=== PATIENT | male | born 1965 | race African-American/Black ===

== ENCOUNTER 2019-01-06 05:45 | Inpatient (IN) | payer OTHER ==
[2019-01-06] MEDS ORDERED: ASPIRIN PO ONE (06:15)
[2019-01-06] MEDS ORDERED: NACL 0.9% 1000 ML IV ONE (06:32)
[2019-01-06] MEDS ORDERED: TYLENOL PO ONE (06:33)
[2019-01-06] MEDS ORDERED: LEVAQUIN 750MG/150ML 750 MG/150 ML BAG IV ONE (06:39)
--- NOTE | 2019-01-06 06:49 | XRay Report ---
PROCEDURE: XR CHEST 1V AP TECHNIQUE: Chest radiograph single view. HISTORY: Chest Pain COMPARISONS: None available. FINDINGS: No mediastinal shift. Cardiac silhouette is not enlarged. No pneumothorax or effusion. Patchy left gr eater than right basilar opacity with left basilar air bronchograms. IMPRESSION: Left and possibly right basilar infiltrate. This document is electronically signed by Forrest Velásquez MD., January 06 2019 06:46:26 AM ET
[2019-01-06 07:37] LABS: Alanine Aminotransferase 14 units/L (7-56); Albumin 2.4 g/dL (3.9-5); BUN/Creatinine Ratio 21; Basophils % (Auto) 0.3 % (0.0-1.8); Bilirubin,Direct < 0.2 mg/dL (0-0.2); Blood Urea Nitrogen 15 mg/dL (9-20); Calcium 8.1 mg/dL (8.4-10.2); Eosinophils # (Auto) 0.3 K/mm3 (0.0-0.4); Eosinophils % (Auto) 2.3 % (0.0-4.3); Hematocrit 30.8 % (35.5-45.6); Hemoglobin 10.5 gm/dl (11.8-15.2); Hemolysis Index 36; Lymphocytes # (Auto) 0.3 K/mm3 (1.2-5.4); Lymphocytes % (Auto) 2.7 % (13.4-35.0); Mean Corpuscular HGB Conc 34 % (32-34); Mean Corpuscular Volume 88 fl (84-94); Monocytes # (Auto) 0.9 K/mm3 (0.0-0.8); Platelet Count 243 K/mm3 (140-440); Red Cell Distribution Width 13.3 % (13.2-15.2)
[2019-01-06] MEDS ORDERED: SOLU-Medrol IV ONE (07:39)
--- NOTE | 2019-01-06 07:39 | Emergency Department Report ---
ED Shortness of Breath HPI - General Chief Complaint: Dyspnea/Respdistress Stated Complaint: SHORTNESS OF BREATH Time Seen by Provider: 01/06/19 06:21 Source: patient, family, old records reviewed Mode of arrival: Ambulatory Limitations: Language Barrier - History of Present Illness Initial Comments: 53-year-old male with a past medical history of HIV, anemia of chronic disease, and hyponatremia presents to the hospital with complaints of cough 2 weeks. Intermittent fever reported. Patient was seen at a clinic a primary care clinic in [place] on the he was prescribed Cefdinir, Singulair, Ventolin, omeprazole, and Tessalon pearls as well as other medications. Despite taking his medications there is no improvement. Present nauseated, generalized weakness, and decreased by mouth intake reported. The patient complains of anterior chest pain worse with coughing. - Related Data Previous Rx's Medication Instructions Recorded Last Taken Type Acetaminophen [Acetaminophen TAB] 650 mg PO Q4H PRN #30 tablet 09/30/15 Unknown Rx Sulfamethoxazole/Trimethoprim 1 each PO DAILY #30 tablet 09/30/15 Unknown Rx [Bactrim DS TAB] Warfarin [Coumadin] 5 mg PO QHS #30 tablet 10/01/15 Unknown Rx Allergies Allergy/AdvReac Type Severity Reaction Status Date / Time No Known Allergies Allergy Verified 09/24/15 12:37 ED Review of Systems ROS: Stated complaint: SHORTNESS OF BREATH Other details as noted in HPI Comment: All other systems reviewed and negative ED Past Medical Hx - Past Medical History Previous Medical History?: Yes Hx Hypertension: Yes Hx Congestive Heart Failure: No Hx Diabetes: No Hx Renal Disease: Yes Hx Asthma: No Hx COPD: No Hx HIV: No - Social History Smoking Status: Former Smoker Substance Use Type: Prescribed - Medications Home Medications: Home Medications Medication Instructions Recorded Confirmed Last Taken Type Acetaminophen [Acetaminophen TAB] 650 mg PO Q4H PRN #30 tablet 09/30/15 Unknown Rx Sulfamethoxazole/Trimethoprim 1 each PO DAILY #30 tablet 09/30/15 Unknown Rx [Bactrim DS TAB] Warfarin [Coumadin] 5 mg PO QHS #30 tablet 10/01/15 Unknown Rx ED Physical Exam - General Limitations: No Limitations - Other Other exam information: General: No limitations, patient is alert in no acute distress Head exam: Atraumatic, normocephalic Eyes exam: Normal appearance ENT: Moist mucous membrane Neck exam: Normal inspection, full range of motion, no meningismus nontender Respiratory exam: Mild tachypnea, left sided crackles without wheezing Cardiovascular: Tachycardic, regular rhythm Abdomen: Soft, nondistended, and nontender, with normal bowel sounds, no rebound, or guarding Extremity: Full range of motion normal inspection no deformity, no edema Back: Normal Inspection, full range of motion, no tenderness Neurologic: Alert, oriented x3, cranial nerves intact, no motor or sensory deficit Psychiatric: normal affect, normal mood Skin: Warm, dry, intact ED Course Vital Signs 01/06/19 01/06/19 01/06/19 06:05 06:42 06:58 Temperature 99.4 F Pulse Rate 112 H 113 H Respiratory 34 H 40 H Rate Blood Pressure 167/103 153/100 [Right] O2 Sat by Pulse 96 95 91 Oximetry 01/06/19 07:00 Temperature Pulse Rate Respiratory Rate Blood Pressure [Right] O2 Sat by Pulse 98 Oximetry - ABG Interpretation Ph: 7.47 PCO2: 28 PO2: 58 Bicarbonate: 21 Interpretation: respiratory alkalosis, other (hypoxia) ED Medical Decision Making - Lab Data Result diagrams: 01/06/19 06:56 01/06/19 06:56 Lab Results 01/06/19 01/06/19 01/06/19 Range/Units 06:56 06:56 06:56 WBC 11.2 H (4.5-11.0) K/mm3 RBC 3.50 L (3.65-5.03) M/mm3 Hgb 10.5 L (11.8-15.2) gm/dl Hct 30.8 L (35.5-45.6) % MCV 88 (84-94) fl MCH 30 (28-32) pg MCHC 34 (32-34) % RDW 13.3 (13.2-15.2) % Plt Count 243 (140-440) K/mm3 Lymph % (Auto) 2.7 L (13.4-35.0) % [place] % (Auto) 8.0 H (0.0-7.3) % Eos % (Auto) 2.3 (0.0-4.3) % Baso % (Auto) 0.3 (0.0-1.8) % Lymph # 0.3 L (1.2-5.4) K/mm3 [place] # 0.9 H (0.0-0.8) K/mm3 Eos # 0.3 (0.0-0.4) K/mm3 Baso # 0.0 (0.0-0.1) K/mm3 Seg Neutrophils % 86.7 H (40.0-70.0) % Seg Neutrophils # 9.7 H (1.8-7.7) K/mm3 PT 13.9 (12.2-14.9) Sec. INR 1.10 (0.87-1.13) APTT 34.9 (24.2-36.6) Sec. POC ABG pH (7.35-7.45) POC ABG pO2 (80-105) POC ABG HCO3 (22-26 mml/L) POC ABG Total CO2 (23-27mmol/L) POC ABG O2 Sat POC ABG Base Excess ((-2) - (+3)mmol/L) VBG pH (7.320-7.420) FiO2 % Sodium 130 L (137-145) mmol/L Potassium 3.7 (3.6-5.0) mmol/L Chloride 98.3 (98-107) mmol/L Carbon Dioxide 18 L (22-30) mmol/L Anion Gap 17 mmol/L BUN 15 (9-20) mg/dL Creatinine 0.7 L (0.8-1.5) mg/dL Estimated GFR > 60 ml/min BUN/Creatinine Ratio 21 % Glucose 119 H (75-100) mg/dL Lactic Acid (0.7-2.0) mmol/L Calcium 8.1 L (8.4-10.2) mg/dL Total Bilirubin 0.40 (0.1-1.2) mg/dL Direct Bilirubin < 0.2 (0-0.2) mg/dL AST 27 (5-40) units/L ALT 14 (7-56) units/L Alkaline Phosphatase 65 (35-129) units/L Troponin T < 0.010 (0.00-0.029) ng/mL NT-Pro-B Natriuret Pep 121.0 (0-900) pg/mL Total Protein 7.2 (6.3-8.2) g/dL Albumin 2.4 L (3.9-5) g/dL Albumin/Globulin Ratio 0.5 % 01/06/19 01/06/19 01/06/19 Range/Units 06:56 06:56 06:59 WBC (4.5-11.0) K/mm3 RBC (3.65-5.03) M/mm3 Hgb (11.8-15.2) gm/dl Hct (35.5-45.6) % MCV (84-94) fl MCH (28-32) pg MCHC (32-34) % RDW (13.2-15.2) % Plt Count (140-440) K/mm3 Lymph % (Auto) (13.4-35.0) % Mason % (Auto) (0.0-7.3) % Eos % (Auto) (0.0-4.3) % Baso % (Auto) (0.0-1.8) % Lymph # (1.2-5.4) K/mm3 [place] # (0.0-0.8) K/mm3 Eos # (0.0-0.4) K/mm3 Baso # (0.0-0.1) K/mm3 Seg Neutrophils % (40.0-70.0) % Seg Neutrophils # (1.8-7.7) K/mm3 PT (12.2-14.9) Sec. INR (0.87-1.13) APTT (24.2-36.6) Sec. POC ABG pH 7.474 H (7.35-7.45) POC ABG pO2 58 L (80-105) POC ABG HCO3 21.2 (22-26 mml/L) POC ABG Total CO2 22 (23-27mmol/L) POC ABG O2 Sat 92 POC ABG Base Excess -2 ((-2) - (+3)mmol/L) VBG pH 7.459 H (7.320-7.420) FiO2 21 % Sodium (137-145) mmol/L Potassium (3.6-5.0) mmol/L Chloride (98-107) mmol/L Carbon Dioxide (22-30) mmol/L Anion Gap mmol/L BUN (9-20) mg/dL Creatinine (0.8-1.5) mg/dL Estimated GFR ml/min BUN/Creatinine Ratio % Glucose (75-100) mg/dL Lactic Acid 0.80 (0.7-2.0) mmol/L Calcium (8.4-10.2) mg/dL Total Bilirubin (0.1-1.2) mg/dL Direct Bilirubin (0-0.2) mg/dL AST (5-40) units/L ALT (7-56) units/L Alkaline Phosphatase (35-129) units/L Troponin T (0.00-0.029) ng/mL NT-Pro-B Natriuret Pep (0-900) pg/mL Total Protein (6.3-8.2) g/dL Albumin (3.9-5) g/dL Albumin/Globulin Ratio % - EKG Data -: EKG Interpreted by Ar EKG shows normal: sinus rhythm, axis (qrs -7), QRS complexes (qrsd 73), ST-T waves (no stemi) Rate: tachycardia (112) - EKG Data When compared to previous EKG there are: no significant change - Radiology Data Radiology results: report reviewed PROCEDURE: XR CHEST 1V AP TECHNIQUE: Chest radiograph single view. HISTORY: Chest Pain COMPARISONS: None available. FINDINGS: No mediastinal shift. Cardiac silhouette is not enlarged. No pneumothorax or effusion. Patchy left greater than right basilar opacity with left basilar air bronchograms. IMPRESSION: Left and possibly right basilar infiltrate. - Medical Decision Making b/l pneumonia + hiv with unknown cd4 + hypoxia tx with supplemental oxygen, 30 mL per KG of normal saline, IV Levaquin, and IV B Solu-Medrol, IV bactrim to cover for PCP since baseline CD4 is unknown at this time no signs of septic shock Hospitalist informed of admission - Differential Diagnosis pneumonia, CHF, AL, PCP, sepsis, renal failure, Critical Care Time: No Critical care attestation.: If time is entered above; I have spent that time in minutes in the direct care of this critically ill patient, excluding procedure time. ED Disposition Clinical Impression: Bilateral pneumonia, HIV (human immunodeficiency virus infection), Hypoxia, Hyponatremia, Failure of outpatient treatment Disposition: OP ADMIT IP TO THIS HOSP Is pt being admited?: Yes Condition: Stable Time of Disposition: 07:59 (dr reed/Hunter)
[2019-01-06] MEDS ORDERED: BACTRIM IV ONE ×2 (07:40→09:00)
[2019-01-06] MEDS ORDERED: TO ASSIGN FLUID IV ONE (07:40)
[2019-01-06 07:49] LABS: INR 1.1 (0.87-1.13)
[2019-01-06 07:50] LABS: Partial Thromboplastin Time 34.9 Sec. (24.2-36.6)
[2019-01-06 08:33] LABS: Bacteria,Urine 1+ /HPF (Negative); Bilirubin,Urine NEG (Negative); Blood,Urine SM (Negative); Color,Urine Straw (Yellow); Mucus,Urine FEW /HPF; Protein,Urine <15 mg/dL mg/dL (Negative); Urobilinogen,Urine < 2.0 mg/dL (<2.0); WBC,Urine < 1.0 /HPF (0.0-6.0)
[2019-01-06] MEDS ORDERED: D5W IV ONE (09:00)
--- NOTE | 2019-01-06 09:59 | History and Physical Report ---
History of Present Illness Date of examination: 01/06/19 Date of admission: 01/06/19 07:59 Chief complaint: Difficulty breathing History of present illness: 53-year-old male with a past medical history of HIV, anemia of chronic disease, and hyponatremia presents to the hospital with complaints of cough 2 weeks, Intermittent fever, SOB and chills. Patient was seen at a clinic a primary care clinic in [place] on the he was prescribed Cefdinir, Singulair, V entolin, omeprazole, and Tessalon pearls as well as other medications. Despite taking his medications there is no improvement. He now Presented with nausea, generalized weakness, and decreased by mouth intake along with subjective fever and chills. The patient complains of anterior pleuretic chest pain worse with coughing. CXR showed b/l PNA. he is not on any meds for HIV, CD4 count few years ago was 62. he is getting admitted for further evaluation and management. Review of Systems: General: +subjective fever, + malaise Cutaneous: no rash, pruritus Head: no headaches or injury Eyes: no changes in vision, eye pain, double vision Ears: no ear pain, ear discharge, ringing or hearing loss Nose: no nose bleeding, stuffiness Mouth & throat: no bleeding gums, no horseness, no dental problems, or swollen glands Neck: no pain, node enlargement/lumps, tyroid enlargement or tenderness Respiratory: +cough +SOB Cardiovascular: no chest pain, leg edema, cyanosis, KOWALSKI, orthopnea Musculoskeletal: no edema Gastrointestinal: +nausea, no vomiting, no hematemesis, diarrhea, constipation, melena, bright red blood in stools, fecal incontinence, jaundice Genitourinary/Reproductive: no frequent urination, dysuria, hematuria, incontinence Neurogical: no seizures, no headaches, no weakness, no paresthesias, no loss of speech or vision; no memory loss, no vertigo, no tremors, no numbness Psychiatric: stable mood; no excessive anxiety, sadness or moodiness Past History Past Medical History: HIV/AIDS Past Surgical History: No surgical history Social history: smoking. denies: alcohol abuse, IV drug use Family history: hypertension Medications and Allergies Allergies Allergy/AdvReac Type Severity Reaction Status Date / Time No Known Allergies Allergy Verified 09/24/15 12:37 Home Medications Medication Instructions Recorded Confirmed Last Taken Type Acetaminophen [Acetaminophen TAB] 650 mg PO Q4H PRN #30 tablet 09/30/15 01/07/19 Unknown Rx Sulfamethoxazole/Trimethoprim 1 each PO DAILY #30 tablet 09/30/15 01/07/19 Unknown Rx [Bactrim DS TAB] Warfarin [Coumadin] 5 mg PO QHS #30 tablet 10/01/15 01/07/19 Unknown Rx Active Meds: Active Medications Trimethoprim/Sulfamethoxazole (305 mg/ Dextrose) 519.0625 mls @ 346.042 mls/hr IV ONCE ONE Stop: 01/06/19 10:29 Exam - Physical Exam Narrative exam: GENERAL: well-developed and well-nourished Daren Castillo lying on bed appeared to be in no discomfort. HEENT: Normocephalic. Atraumatic. No conjunctival congestion or icterus. Patient has moist mucous membranes. NECK: Supple. Trachea midline. CHEST/LUNGS: Coarse breath sounds auscultated bilaterally, breathing nonlabored. No wheezes. HEART/CARDIOVASCULAR: Regular in rate and rhythm. S1 and S2 positive. ABDOMEN: Abdomen is soft, nontender. Patient has normal bowel sounds. SKIN: There is no rash. Warm and dry. NEURO: No focal motor deficit. Follows command. MUSCULOSKELETAL: No joint effusion or tenderness. EXTRIMITY: No edema, no cyanosis or clubbing. PSYCH: Cooperative. - Constitutional Vitals: Temp Pulse Resp BP Pulse Ox 99.4 F 91 H 19 128/90 99 01/06/19 06:05 01/06/19 09:00 01/06/19 09:00 01/06/19 09:00 01/06/19 09:00 Results - Labs CBC & Chem 7: 01/08/19 06:50 01/08/19 06:50 Labs: Abnormal lab results 01/06/19 01/06/19 01/06/19 Range/Units 06:56 06:56 06:56 WBC 11.2 H (4.5-11.0) K/mm3 RBC 3.50 L (3.65-5.03) M/mm3 Hgb 10.5 L (11.8-15.2) gm/dl Hct 30.8 L (35.5-45.6) % Lymph % (Auto) 2.7 L (13.4-35.0) % [facility] % (Auto) 8.0 H (0.0-7.3) % Lymph # 0.3 L (1.2-5.4) K/mm3 [facility] # 0.9 H (0.0-0.8) K/mm3 Seg Neutrophils % 86.7 H (40.0-70.0) % Seg Neutrophils # 9.7 H (1.8-7.7) K/mm3 POC ABG pH (7.35-7.45) POC ABG pO2 (80-105) VBG pH 7.459 H (7.320-7.420) Sodium 130 L (137-145) mmol/L Carbon Dioxide 18 L (22-30) mmol/L Creatinine 0.7 L (0.8-1.5) mg/dL Glucose 119 H (75-100) mg/dL Calcium 8.1 L (8.4-10.2) mg/dL Albumin 2.4 L (3.9-5) g/dL 01/06/19 Range/Units 06:59 WBC (4.5-11.0) K/mm3 RBC (3.65-5.03) M/mm3 Hgb (11.8-15.2) gm/dl Hct (35.5-45.6) % Lymph % (Auto) (13.4-35.0) % [facility] % (Auto) (0.0-7.3) % Lymph # (1.2-5.4) K/mm3 [facility] # (0.0-0.8) K/mm3 Seg Neutrophils % (40.0-70.0) % Seg Neutrophils # (1.8-7.7) K/mm3 POC ABG pH 7.474 H (7.35-7.45) POC ABG pO2 58 L (80-105) VBG pH (7.320-7.420) Sodium (137-145) mmol/L Carbon Dioxide (22-30) mmol/L Creatinine (0.8-1.5) mg/dL Glucose (75-100) mg/dL Calcium (8.4-10.2) mg/dL Albumin (3.9-5) g/dL Assessment and Plan Acute hypoxic respiratory failure due to pneumonia - - We'll admit the patient to telemetry - Will provide scheduled nebulizer breathing treatment and as needed - will get sputum culture, chest x-ray showed bilateral pneumonia - Provide supplemental oxygen to keep oxygen saturation above 92% b/L PNA with presumed sepsis - Obtained blood culture, sputum culture - Treat with Rocephin and Zithromax - Patient may need to be covered for PCP pneumonia as his CD4 count is unknown -ID consulted will follow recommendation h/o HIV, not on ARV - Ordered CD4 count, ID consult Chronic hyponatremia, continue IV fluid Noncompliance, counseled Oralcandidiasis, started fluconazole DVT prophylaxis, Lovenox CXR: CXR showed patchy left greater than right basilar opacity with left basilar air bronchograms.
[2019-01-06] MEDS ORDERED: TYLENOL PO PRN (10:07)
[2019-01-06] MEDS ORDERED: APRESOLINE IV PRN (10:07)
[2019-01-06] MEDS: ZITHROMAX 500 MG in NACL 0.9% 250ML 250 ML IV SCH (12:33)
--- NOTE | 2019-01-06 12:36 | Consultation ---
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 Patient only speaks Malian. At the time of encounter there were none translating phone lines available, therefore nursing staff assisted me using [email or web address]. Patient also reports weight loss 10L in 2 months. He said his family (son at bedside) known about his HIV status. I asked the son and he seemed no aware. I decided to interview the patient privately. He was seen by a PCP in [place] on 12/28/2018 and he was prescribed Cefdinir, Singulair, Ventolin, omeprazole, and Tessalon pearls as well as other medications. Despite taking his medications there is no improvement. Of note, he was admitted to [facility] back in 2015 due to HD IJ perm cath infection/DVT. He is not on HD currently. It seems he was found to be HIV positive during admission at [facility] in [place]. He was hospitalized there from 07/04/15 thru 08/05/15. He was admitted with sepsis and ARF, acute hepatic failure, requiring HD. As well he had multiple organ failure and acute pancreatitis. He was found to be Shiga toxin positive. His CD4 count = 62 there. In the ED, temp 99.4, HR 113, R41, BP 107/103, WBC 11.2. Hg 10.5. Plat 243. Creat 0.7. Blood cultures 01/06/2019 no growth today. CXR showed patchy left greater than right basilar opacity with left basilar air bronchograms. ID consulted for HIV and pneumonia. Review of Systems: General: +subjective fever, + malaise Cutaneous: no rash, pruritus Head: no headaches or injury Eyes: no changes in vision, eye pain, double vision Ears: no ear pain, ear discharge, ringing or hearing loss Nose: no nose bleeding, stuffiness Mouth & throat: no bleeding gums, no horseness, no dental problems, or swollen glands Neck: no pain, node enlargement/lumps, tyroid enlargement or tenderness Respiratory: +cough +SOB Cardiovascular: no chest pain, leg edema, cyanosis, KOWALSKI, orthopnea Musculoskeletal: no edema Gastrointestinal: +nausea, no vomiting, no hematemesis, diarrhea, constipation, melena, bright red blood in stools, fecal incontinence, jaundice Genitourinary/Reproductive: no frequent urination, dysuria, hematuria, incontinence Neurogical: no seizures, no headaches, no weakness, no paresthesias, no loss of speech or vision; no memory loss, no vertigo, no tremors, no numbness Psychiatric: stable mood; no excessive anxiety, sadness or moodiness Medications and Allergies Allergies Allergy/AdvReac Type Severity Reaction Status Date / Time No Known Allergies Allergy Verified 09/24/15 12:37 Home Medications Medication Instructions Recorded Confirmed Last Taken Type Acetaminophen [Acetaminophen TAB] 650 mg PO Q4H PRN #30 tablet 09/30/15 Unknown Rx Sulfamethoxazole/Trimethoprim 1 each PO DAILY #30 tablet 09/30/15 Unknown Rx [Bactrim DS TAB] Warfarin [Coumadin] 5 mg PO QHS #30 tablet 10/01/15 Unknown Rx Active Meds: Active Medications Acetaminophen (Tylenol) 650 mg PO Q4H PRN PRN Reason: Pain MILD(1-3)/Fever >100.5/BOOTHE Acetaminophen/Hydrocodone Bitart ([place] 5/325) 2 each PO Q6H PRN PRN Reason: Pain, Moderate (4-6) Albuterol/Ipratropium (Duoneb *Not For Prn Use*) 1 ampul IH Q6HRT [facility] Enoxaparin Sodium (Lovenox) 40 mg SUB-Q QDAY@2200 [facility] Famotidine (Pepcid) 10 mg PO BID [facility] Hydralazine HCl (Apresoline) 5 mg IV Q30MIN PRN PRN Reason: Hypertension Ceftriaxone Sodium (Rocephin/Ns 1 Gm/50 Ml) 1 gm in 50 mls @ 100 mls/hr IV Q12HR [facility]; Protocol Azithromycin 500 mg/ Sodium (Chloride) 250 mls @ 250 mls/hr IV Q24HR [facility]; Protocol Last Admin: 01/06/19 12:33 Dose: 250 mls/hr Documented by: Sodium Chloride (Nacl 0.9% 1000 Ml) 1,000 mls @ 100 mls/hr IV DIRECT [facility] Ondansetron HCl (Zofran) 4 mg IV Q8H PRN PRN Reason: N/V unrelieved by James Noe (Senokot) 8.6 mg PO Q12HR [facility] Trimethoprim/Sulfamethoxazole (Bactrim Ds) 2 each PO Q8HR [facility] Physical Examination - Physical Exam Narrative exam: General appearance: Alert in NAD Eyes: anicteric sclerae, moist conjunctivae; no lid-lag; PERRLA HENT: Atraumatic; oropharynx clear with moist mucous membranes and +mild oral thrush; normal hard and soft palate. Normal external ears. Neck: Trachea midline; supple, no thyromegaly or lymphadenopathy Lungs: bibasilar crackles CV: RRR no murmur Abdomen: Soft, diffuse tenderness Extremities: no edema, cyanosis Skin: Normal temperature, turgor and texture; no rash, ulcers or subcutaneous nodules Psych: Appropriate affect, alert and oriented to person, place and time. Neuro: alert and oriented x 3. Moving all extermities - Constitutional Vitals: Vital Signs Temp Pulse Resp BP Pulse Ox 99.4 F 91 H 19 128/90 99 01/06/19 06:05 01/06/19 09:00 01/06/19 09:00 01/06/19 09:00 01/06/19 09:00 Temperature -Last 24 Hours Temperature 99.4 F Results - Labs CBC & Chem 7: 01/06/19 06:56 01/06/19 06:56 Labs: Abnormal lab results 01/06/19 01/06/19 01/06/19 Range/Units 06:56 06:56 06:56 WBC 11.2 H (4.5-11.0) K/mm3 RBC 3.50 L (3.65-5.03) M/mm3 Hgb 10.5 L (11.8-15.2) gm/dl Hct 30.8 L (35.5-45.6) % Lymph % (Auto) 2.7 L (13.4-35.0) % [place] % (Auto) 8.0 H (0.0-7.3) % Lymph # 0.3 L (1.2-5.4) K/mm3 [place] # 0.9 H (0.0-0.8) K/mm3 Seg Neutrophils % 86.7 H (40.0-70.0) % Seg Neutrophils # 9.7 H (1.8-7.7) K/mm3 POC ABG pH (7.35-7.45) POC ABG pO2 (80-105) VBG pH 7.459 H (7.320-7.420) Sodium 130 L (137-145) mmol/L Carbon Dioxide 18 L (22-30) mmol/L Creatinine 0.7 L (0.8-1.5) mg/dL Glucose 119 H (75-100) mg/dL Calcium 8.1 L (8.4-10.2) mg/dL Albumin 2.4 L (3.9-5) g/dL 01/06/19 Range/Units 06:59 WBC (4.5-11.0) K/mm3 RBC (3.65-5.03) M/mm3 Hgb (11.8-15.2) gm/dl Hct (35.5-45.6) % Lymph % (Auto) (13.4-35.0) % [place] % (Auto) (0.0-7.3) % Lymph # (1.2-5.4) K/mm3 [place] # (0.0-0.8) K/mm3 Seg Neutrophils % (40.0-70.0) % Seg Neutrophils # (1.8-7.7) K/mm3 POC ABG pH 7.474 H (7.35-7.45) POC ABG pO2 58 L (80-105) VBG pH (7.320-7.420) Sodium (137-145) mmol/L Carbon Dioxide (22-30) mmol/L Creatinine (0.8-1.5) mg/dL Glucose (75-100) mg/dL Calcium (8.4-10.2) mg/dL Albumin (3.9-5) g/dL Assessment and Plan Cultures: Blood cultures 01/06/2019 no growth today. 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 Etiology most likely pneumonia. 2) Bilateral pneumonia: likely PJP +/- CAP. Patient with HIV not on ART, likely AIDS. CXR showed patchy left greater than right basilar opacity with left basilar air bronchograms. 3) Oral candidiasis Recommendations: - follow-up blood cultures - start bactrim DS 2 tab po TID to treat empirically PJP - add fluconazole PO - continue ceftriaxone and azithromycin for now - obtain CD4, VL, HIV genotype, cryptococcal serum antigen, HBV and HCV serology, RPR - needs education about consistent HIV management Will follow. Margi Shah MD Infectious Diseases Administrative Analyst [facility], [place] [facility] M [phone] O [phone]
[2019-01-06] MEDS: DUONEB *Not for PRN Use IH SCH ×3 (13:31→19:09)
[2019-01-06 14:28] LABS: Hepatitis B Surface Antigen Non-Reactive (Negative); Hepatitis C Virus Antibody Non-Reactive (NonReactive)
[2019-01-06] MEDS: BACTRIM DS PO SCH ×2 (17:57→22:04)
[2019-01-06] MEDS: DIFLUCAN PO SCH (17:57)
[2019-01-06] MEDS: NORCO 5/325 PO PRN (19:51)
[2019-01-06] MEDS: PEPCID PO SCH (22:03)
[2019-01-06] MEDS: ROCEPHIN/NS 1 GM/50 ML 1 GM/50 ML BAG IV SCH (22:04)
[2019-01-06] MEDS: LOVENOX SUB-Q SCH (22:04)
[2019-01-06] MEDS: SENOKOT PO SCH (22:04)
[2019-01-06] MEDS: NACL 0.9% 1000 ML 1,000 ML IV SCH (22:05)
[2019-01-07] MEDS: DUONEB *Not for PRN Use IH SCH ×4 (01:43→20:43)
[2019-01-07] MEDS: BACTRIM DS PO SCH ×3 (05:15→21:49)
[2019-01-07] MEDS: ROCEPHIN/NS 1 GM/50 ML 1 GM/50 ML BAG IV SCH ×2 (10:22→21:49)
[2019-01-07] MEDS: ZITHROMAX 500 MG in NACL 0.9% 250ML 250 ML IV SCH (10:22)
[2019-01-07] MEDS: SENOKOT PO SCH ×2 (10:23→21:50)
[2019-01-07] MEDS: DIFLUCAN PO SCH (10:23)
[2019-01-07] MEDS: MUCINEX ER PO SCH ×2 (10:23→21:49)
[2019-01-07] MEDS: PEPCID PO SCH ×2 (10:23→21:49)
[2019-01-07] MEDS: NACL 0.9% 1000 ML 1,000 ML IV SCH ×2 (12:33→21:49)
--- NOTE | 2019-01-07 18:08 | Progress Note ---
Assessment and Plan Acute hypoxic respiratory failure due to pneumonia - - We'll admit the patient to telemetry - Will provide scheduled nebulizer breathing treatment and as needed - will get sputum culture, chest x-ray showed bilateral pneumonia - Provide supplemental oxygen to keep oxygen saturation above 92% b/L PNA with presumed sepsis - Obtained blood culture, sputum culture - Treat with Rocephin and Zithromax - Patient may need to be covered for PCP pneumonia as his CD4 count is unknown -ID consulted will follow recommendation h/o HIV, not on ARV - Ordered CD4 count, ID consult Chronic hyponatremia, continue IV fluid Noncompliance, counseled Oralcandidiasis, started fluconazole DVT prophylaxis, Lovenox CXR: CXR showed patchy left greater than right basilar opacity with left basilar air bronchograms. Subjective Date of service: 01/07/19 Interval history: patient seen and examined c/o SOB and cough Objective - Exam Narrative Exam: GENERAL: well-developed and well-nourished Asiya Smale lying on bed appeared to be in no discomfort. HEENT: Normocephalic. Atraumatic. No conjunctival congestion or icterus. Patient has moist mucous membranes. NECK: Supple. Trachea midline. CHEST/LUNGS: Coarse breath sounds auscultated bilaterally, breathing nonlabored. No wheezes. HEART/CARDIOVASCULAR: Regular in rate and rhythm. S1 and S2 positive. ABDOMEN: Abdomen is soft, nontender. Patient has normal bowel sounds. SKIN: There is no rash. Warm and dry. NEURO: No focal motor deficit. Follows command. MUSCULOSKELETAL: No joint effusion or tenderness. EXTRIMITY: No edema, no cyanosis or clubbing. PSYCH: Cooperative. - Constitutional Vitals: Vital Signs - 12hr 01/07/19 01/07/19 01/07/19 07:05 08:30 08:34 Temperature 97.5 F L Pulse Rate 75 Pulse Rate [ Anterior Bilateral Upper Lobe] Pulse Rate [ 70 Anterior Left Upper Lobe] Pulse Rate [ 70 Anterior Right Upper Lobe] Respiratory 18 Rate Respiratory Rate [Anterior Bilateral Upper Lobe] Respiratory 20 Rate [Anterior Left Upper Lobe ] Respiratory 20 Rate [Anterior Right Upper Lobe] Blood Pressure 133/93 O2 Sat by Pulse 98 98 Oximetry 01/07/19 01/07/19 01/07/19 08:42 10:00 11:09 Temperature 97.5 F L Pulse Rate 61 90 Pulse Rate [ 74 Anterior Bilateral Upper Lobe] Pulse Rate [ Anterior Left Upper Lobe] Pulse Rate [ Anterior Right Upper Lobe] Respiratory 18 Rate Respiratory 20 Rate [Anterior Bilateral Upper Lobe] Respiratory Rate [Anterior Left Upper Lobe ] Respiratory Rate [Anterior Right Upper Lobe] Blood Pressure 108/69 O2 Sat by Pulse 98 Oximetry 01/07/19 01/07/19 01/07/19 14:12 14:21 16:05 Temperature 97.8 F Pulse Rate 84 Pulse Rate [ 77 72 Anterior Bilateral Upper Lobe] Pulse Rate [ Anterior Left Upper Lobe] Pulse Rate [ Anterior Right Upper Lobe] Respiratory 18 Rate Respiratory 18 16 Rate [Anterior Bilateral Upper Lobe] Respiratory Rate [Anterior Left Upper Lobe ] Respiratory Rate [Anterior Right Upper Lobe] Blood Pressure 135/89 O2 Sat by Pulse 95 Oximetry - Labs CBC & Chem 7: 01/08/19 06:50 01/08/19 06:50 Labs: Abnormal lab results 01/07/19 01/07/19 01/07/19 Range/Units 08:39 11:17 16:12 POC Glucose 132 H 219 H 148 H (70-105)
[2019-01-07] MEDS: LOVENOX SUB-Q SCH (21:49)
[2019-01-08] MEDS: DUONEB *Not for PRN Use IH SCH ×4 (02:46→20:07)
[2019-01-08] MEDS: BACTRIM DS PO SCH ×4 (04:58→21:46)
[2019-01-08] MEDS: NORCO 5/325 PO PRN ×2 (04:58→21:46)
[2019-01-08 08:33] LABS: Hematocrit 33.1 % (35.5-45.6); Hemoglobin 11.2 gm/dl (11.8-15.2); Mean Corpuscular HGB Conc 34 % (32-34); Mean Corpuscular Volume 88 fl (84-94); Platelet Count 308 K/mm3 (140-440); Red Blood Count 3.78 M/mm3 (3.65-5.03); Red Cell Distribution Width 13.5 % (13.2-15.2)
[2019-01-08 09:03] LABS: BUN/Creatinine Ratio 17; Blood Urea Nitrogen 15 mg/dL (9-20); Calcium 7.8 mg/dL (8.4-10.2); Hemolysis Index 2
[2019-01-08] MEDS: ROCEPHIN/NS 1 GM/50 ML 1 GM/50 ML BAG IV SCH ×2 (09:48→21:40)
[2019-01-08] MEDS: NACL 0.9% 1000 ML 1,000 ML IV SCH (09:49)
[2019-01-08] MEDS: DIFLUCAN PO SCH (09:50)
[2019-01-08] MEDS: MUCINEX ER PO SCH ×2 (09:51→21:46)
[2019-01-08] MEDS: PEPCID PO SCH ×2 (09:51→21:46)
[2019-01-08] MEDS: SENOKOT PO SCH ×2 (09:51→21:46)
[2019-01-08] MEDS: ZITHROMAX 500 MG in NACL 0.9% 250ML 250 ML IV SCH (09:52)
[2019-01-08 10:40] LABS: Basophils % (Manual) 0 % (0.0-1.8); Eosinophils % (Manual) 0 % (0.0-4.3); Total Cells Counted 100
[2019-01-08 10:41] LABS: Anisocytosis 1+; Ovalocytes Few; Platelet Estimate Consistent w Auto
--- NOTE | 2019-01-08 12:47 | Progress Note ---
Assessment and Plan Acute hypoxic respiratory failure due to pneumonia - monitor patient to telemetry - Will provide scheduled nebulizer breathing treatment and as needed - follow sputum culture, chest x-ray showed bilateral pneumonia - Provide supplemental oxygen to keep oxygen saturation above 92% - requiring more O2 to keep sat >92%, will consult pulmonary b/L PNA with presumed sepsis - Obtained blood culture, sputum culture - Treat with Rocephin and Zithromax - Patient may need to be covered for PCP pneumonia as his CD4 count is unknown -ID consulted will follow recommendation h/o HIV, not on ARV - Ordered CD4 count, ID consult Chronic hyponatremia, continue IV fluid Noncompliance, counseled Oralcandidiasis, started fluconazole DVT prophylaxis, Lovenox CXR: CXR showed patchy left greater than right basilar opacity with left basilar air bronchograms. Subjective Date of service: 01/08/19 Interval history: patient seen and examined c/o SOB and cough requiring more O2, placed on ventimask today Objective - Exam Narrative Exam: GENERAL: well-developed and well-nourished [place] male lying on bed appeared to be in mild discomfort. HEENT: Normocephalic. Atraumatic. No conjunctival congestion or icterus. Patient has moist mucous membranes. NECK: Supple. Trachea midline. CHEST/LUNGS: Coarse breath sounds auscultated bilaterally, breathing labored.on ventimusk HEART/CARDIOVASCULAR: Regular in rate and rhythm. S1 and S2 positive. ABDOMEN: Abdomen is soft, nontender. Patient has normal bowel sounds. SKIN: There is no rash. Warm and dry. NEURO: No focal motor deficit. Follows command. MUSCULOSKELETAL: No joint effusion or tenderness. EXTRIMITY: No edema, no cyanosis or clubbing. PSYCH: Cooperative. - Constitutional Vitals: Vital Signs - 12hr 01/08/19 01/08/19 01/08/19 02:46 04:57 08:16 Temperature 97.8 F 98.2 F Pulse Rate 95 H 88 Pulse Rate [ 100 H Anterior Bilateral Throughout] Respiratory 24 22 Rate Respiratory 24 Rate [Anterior Bilateral Throughout] Blood Pressure 127/78 Blood Pressure 159/94 [Right] O2 Sat by Pulse 95 95 93 Oximetry 01/08/19 01/08/19 10:00 12:42 Temperature Pulse Rate Pulse Rate [ Anterior Bilateral Throughout] Respiratory 40 H Rate Respiratory Rate [Anterior Bilateral Throughout] Blood Pressure Blood Pressure [Right] O2 Sat by Pulse 90 93 Oximetry - Labs CBC & Chem 7: 01/08/19 06:50 01/08/19 06:50 Labs: Abnormal lab results 01/07/19 01/08/19 01/08/19 Range/Units 16:12 06:50 06:50 WBC 19.2 H (4.5-11.0) K/mm3 Hgb 11.2 L (11.8-15.2) gm/dl Hct 33.1 L (35.5-45.6) % Seg Neuts % (Manual) 98.0 H (40.0-70.0) % Lymphocytes % (Manual) 1.0 L (13.4-35.0) % Seg Neutrophils # Man 18.8 H (1.8-7.7) K/mm3 Lymphocytes # (Manual) 0.2 L (1.2-5.4) K/mm3 Sodium 134 L (137-145) mmol/L Carbon Dioxide 15 L (22-30) mmol/L POC Glucose 148 H (70-105) Calcium 7.8 L (8.4-10.2) mg/dL
[2019-01-08] MEDS ORDERED: LASIX IV ONE (13:31)
--- NOTE | 2019-01-08 13:35 | Consultation ---
History of Present Illness Consult date: 01/08/19 Requesting physician: ZURI NEELY Reason for consult: hypoxemia History of present illness: 53 y/o male, who only speaks [place], admitted with bilateral pneumonia. Patient has HIV and is not on therapy. ID consulted and started empiric coverage for PJP. Patient started out on 2 liters NC and now is up to 5-6 liters with sats in the low 90's. He is positive well over 3K and has normal saline running continuous. Pulmonary consulted today for acute respiratory failure. Past History Past Medical History: HIV/AIDS Past Surgical History: No surgical history Social history: smoking. denies: alcohol abuse, IV drug use Family history: hypertension Medications and Allergies Allergies Allergy/AdvReac Type Severity Reaction Status Date / Time No Known Allergies Allergy Verified 09/24/15 12:37 Home Medications Medication Instructions Recorded Confirmed Last Taken Type Acetaminophen [Acetaminophen TAB] 650 mg PO Q4H PRN #30 tablet 09/30/15 01/07/19 Unknown Rx Sulfamethoxazole/Trimethoprim 1 each PO DAILY #30 tablet 09/30/15 01/07/19 Unknown Rx [Bactrim DS TAB] Warfarin [Coumadin] 5 mg PO QHS #30 tablet 10/01/15 01/07/19 Unknown Rx Active Meds: Active Medications Acetaminophen (Tylenol) 650 mg PO Q4H PRN PRN Reason: Pain MILD(1-3)/Fever >100.5/BOOTHE Acetaminophen/Hydrocodone Bitart ([place] 5/325) 2 each PO Q6H PRN PRN Reason: Pain, Moderate (4-6) Last Admin: 01/08/19 04:58 Dose: 2 each Documented by: Albuterol/Ipratropium (Duoneb *Not For Prn Use*) 1 ampul IH Q6HRT [facility] Last Admin: 01/08/19 08:50 Dose: 1 ampul Documented by: Enoxaparin Sodium (Lovenox) 40 mg SUB-Q QDAY@2200 [facility] Last Admin: 01/07/19 21:49 Dose: 40 mg Documented by: Famotidine (Pepcid) 10 mg PO BID [facility] Last Admin: 01/08/19 09:51 Dose: 10 mg Documented by: Fluconazole (Diflucan) 200 mg PO QDAY [facility] Last Admin: 01/08/19 09:50 Dose: 200 mg Documented by: Furosemide (Lasix) 40 mg IV ONCE ONE Stop: 01/08/19 13:32 Guaifenesin (Mucinex Er) 1,200 mg PO BID [facility] Last Admin: 01/08/19 09:51 Dose: 1,200 mg Documented by: Hydralazine HCl (Apresoline) 5 mg IV Q30MIN PRN PRN Reason: Hypertension Ceftriaxone Sodium (Rocephin/Ns 1 Gm/50 Ml) 1 gm in 50 mls @ 100 mls/hr IV Q12HR [facility]; Protocol Last Admin: 01/08/19 09:48 Dose: 100 mls/hr Documented by: Azithromycin 500 mg/ Sodium (Chloride) 250 mls @ 250 mls/hr IV Q24HR [facility]; Protocol Last Admin: 01/08/19 09:52 Dose: 250 mls/hr Documented by: Sodium Chloride (Nacl 0.9% 1000 Ml) 1,000 mls @ 100 mls/hr IV DIRECT [facility] Last Admin: 01/08/19 09:49 Dose: 100 mls/hr Documented by: Methylprednisolone Sodium Succinate (Solu-Medrol) 40 mg IV Q24HR [facility] Ondansetron HCl (Zofran) 4 mg IV Q8H PRN PRN Reason: N/V unrelieved by James Noe (Senokot) 8.6 mg PO Q12HR [facility] Last Admin: 01/08/19 09:51 Dose: 8.6 mg Documented by: Trimethoprim/Sulfamethoxazole (Bactrim Ds) 2 each PO Q8HR [facility] Last Admin: 01/08/19 05:00 Dose: Not Given Documented by: Physical Examination Vital signs: Vital Signs Pulse Ox 90 01/06/19 05:58 General appearance: alert, appears uncomfortable Eyes: non-icteric ENT: oropharynx moist Neck: supple, no JVD Effort: very labored Ascultation: Bilateral: rales Percussion: Bilateral: not dull Cardiovascular: regular rate and rhythm (sinus tach) Gastrointestinal: normoactive bowel sounds, soft, non-tender Musculoskeletal: no deformities normal mental status, non-focal exam Results - Laboratory Findings CBC and BMP: 01/08/19 06:50 01/08/19 06:50 ABG POC ABG pH 7.474 (7.35-7.45) H 01/06/19 06:59 POC ABG pO2 58 (80-105) L 01/06/19 06:59 POC ABG HCO3 21.2 (22-26 mml/L) 01/06/19 06:59 POC ABG Total CO2 22 (23-27mmol/L) 01/06/19 06:59 POC ABG O2 Sat 92 01/06/19 06:59 PT/INR, D-dimer PT 13.9 Sec. (12.2-14.9) 01/06/19 06:56 INR 1.10 (0.87-1.13) 01/06/19 06:56 Abnormal lab findings: Abnormal Labs 01/06/19 01/06/19 01/06/19 06:56 06:56 06:56 WBC 11.2 H RBC 3.50 L Hgb 10.5 L Hct 30.8 L Lymph % (Auto) 2.7 L [place] % (Auto) 8.0 H Lymph # 0.3 L [place] # 0.9 H Seg Neutrophils % 86.7 H Seg Neuts % (Manual) Lymphocytes % (Manual) Seg Neutrophils # 9.7 H Seg Neutrophils # Man Lymphocytes # (Manual) POC ABG pH POC ABG pO2 VBG pH 7.459 H Sodium 130 L Carbon Dioxide 18 L Creatinine 0.7 L Glucose 119 H POC Glucose Calcium 8.1 L Albumin 2.4 L 01/06/19 01/07/19 01/07/19 06:59 08:39 11:17 WBC RBC Hgb Hct Lymph % (Auto) [place] % (Auto) Lymph # [place] # Seg Neutrophils % Seg Neuts % (Manual) Lymphocytes % (Manual) Seg Neutrophils # Seg Neutrophils # Man Lymphocytes # (Manual) POC ABG pH 7.474 H POC ABG pO2 58 L VBG pH Sodium Carbon Dioxide Creatinine Glucose POC Glucose 132 H 219 H Calcium Albumin 01/07/19 01/08/19 01/08/19 16:12 06:50 06:50 WBC 19.2 H RBC Hgb 11.2 L Hct 33.1 L Lymph % (Auto) [place] % (Auto) Lymph # [place] # Seg Neutrophils % Seg Neuts % (Manual) 98.0 H Lymphocytes % (Manual) 1.0 L Seg Neutrophils # Seg Neutrophils # Man 18.8 H Lymphocytes # (Manual) 0.2 L POC ABG pH POC ABG pO2 VBG pH Sodium 134 L Carbon Dioxide 15 L Creatinine Glucose POC Glucose 148 H Calcium 7.8 L Albumin - Diagnostic Findings Chest x-ray: image reviewed Assessment and Plan 53 y/o with acute respiratory failure, initially thought secondary to pneumonia, now worsening, most likely secondary to volume overload. 1. Repeat CXR (none done since admission) 2. Stat BNP 3. Lasix 40mg IV x1 4. Stop IVF's 5. Will follow.
--- NOTE | 2019-01-08 14:14 | XRay Report ---
PROCEDURE: XR CHEST 1V AP TECHNIQUE: Chest, portable upright HISTORY: Hypoxemia COMPARISON: 01/06/2019 FINDINGS: The heart size is normal. There is no pulmonary vascular congestion seen. Mediastinal contours are normal. There is some retrocardiac airspace disease worrisome for infiltrate in the left lower lobe. There is no pleural effusion seen. There is no pneumothorax seen. IMPRESSION: Unchanged left lower lobe infiltrate. This document is electronically signed by Brisa Lomax MD., January 08 2019 02:12:16 PM ET
[2019-01-08] MEDS: SOLU-Medrol IV SCH (16:26)
[2019-01-08] MEDS ORDERED: HALDOL IV ONE (18:00)
[2019-01-08] MEDS: LOVENOX SUB-Q SCH (21:46)
[2019-01-09] MEDS: DUONEB *Not for PRN Use IH SCH ×4 (02:30→19:57)
[2019-01-09] MEDS: NORCO 5/325 PO PRN ×2 (04:09→21:42)
[2019-01-09] MEDS: BACTRIM DS PO SCH ×3 (05:42→21:42)
[2019-01-09] MEDS: PEPCID PO SCH ×2 (09:46→21:35)
[2019-01-09] MEDS: DIFLUCAN PO SCH (09:46)
[2019-01-09] MEDS: MUCINEX ER PO SCH ×2 (09:46→21:36)
[2019-01-09] MEDS: SENOKOT PO SCH ×2 (09:46→21:36)
[2019-01-09] MEDS: SOLU-Medrol IV SCH (09:47)
[2019-01-09] MEDS: ROCEPHIN/NS 1 GM/50 ML 1 GM/50 ML BAG IV SCH ×2 (10:00→21:37)
--- NOTE | 2019-01-09 10:30 | Progress Note ---
Assessment and Plan Cultures: Blood cultures 01/06/2019 no growth today. 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 Present on admission, manifested by tachycardia, tachypnea and leukocytosis. Etiology most likely pneumonia. 2) Bilateral pneumonia: likely PJP +/- CAP. Patient with HIV not on ART, likely AIDS. CXR showed patchy left greater than right basilar opacity with left basilar air bronchograms. On Venti mask. 3) Oral candidiasis: Improved Recommendations: - follow-up blood cultures - continue bactrim DS 2 tab po TID to treat empirically PJP - continue fluconazole 200mg PO qday, D5 - continue ceftriaxone 1gm every 12 hours, D5 - discontinue azithromycin 500mg IV qday, D5 - follow-up CD4, VL, HIV genotype, cryptococcal serum antigen, HBV and HCV serology, RPR - needs education about consistent HIV management -discussed with case management and patient. Information will be provided to follow-up with [facility] to start ART therapy -CBC ordered for tomorrow [facility] M: [phone] O:[phone] Subjective Date of service: 01/09/19 Interval history: Patient seen and examined. Primary language Thai. Conversation via interpretation line. Generalized weakness, no pain reported. On venti mask. No fevers. Objective - Exam Narrative Exam: General appearance: Alert in NAD Eyes: anicteric sclerae, moist conjunctivae; no lid-lag; PERRLA HENT: Atraumatic; oropharynx clear with moist mucous membranes and +mild oral thrush; normal hard and soft palate. Normal external ears. Neck: Trachea midline; supple, no thyromegaly or lymphadenopathy Lungs: bibasilar crackles, on venti mask CV: RRR no murmur Abdomen: Soft, diffuse tenderness Extremities: no edema, cyanosis Skin: Normal temperature, turgor and texture; no rash, ulcers or subcutaneous nodules Psych: Appropriate affect, alert and oriented to person, place and time. Neuro: alert and oriented x 3. Moving all extremities - Constitutional Vitals: Vital Signs Temp Pulse Resp BP Pulse Ox 98.5 F 123 H 18 148/87 95 01/09/19 07:29 01/09/19 09:52 01/09/19 08:09 01/09/19 09:52 01/09/19 09:52 Temperature -Last 24 Hours Temperature 98.5 F Temperature 98.0 F Temperature 98.0 F Temperature 97.8 F Temperature 98.6 F Temperature 97.8 F - Labs CBC & Chem 7: 01/08/19 06:50 01/08/19 06:50 Labs: Abnormal lab results 01/08/19 01/08/19 01/08/19 Range/Units 06:50 06:50 17:36 Seg Neuts % (Manual) 98.0 H (40.0-70.0) % Lymphocytes % (Manual) 1.0 L (13.4-35.0) % Seg Neutrophils # Man 18.8 H (1.8-7.7) K/mm3 Lymphocytes # (Manual) 0.2 L (1.2-5.4) K/mm3 POC ABG pO2 61 L (80-105) POC Glucose (70-105) NT-Pro-B Natriuret Pep 1357 H (0-900) pg/mL 01/08/19 01/09/19 Range/Units 21:34 07:34 Seg Neuts % (Manual) (40.0-70.0) % Lymphocytes % (Manual) (13.4-35.0) % Seg Neutrophils # Man (1.8-7.7) K/mm3 Lymphocytes # (Manual) (1.2-5.4) K/mm3 POC ABG pO2 (80-105) POC Glucose 208 H 168 H (70-105) NT-Pro-B Natriuret Pep (0-900) pg/mL
[2019-01-09] MEDS: ZITHROMAX 500 MG in NACL 0.9% 250ML 250 ML IV SCH (10:55)
--- NOTE | 2019-01-09 11:30 | Progress Note ---
Assessment and Plan 53 y/o with acute respiratory failure, initially thought secondary to pneumonia, now worsening, most likely secondary to volume overload. 1. lasix 40mg IV again today. 2. Suggest obtaining 2D echo to eval for left sided as well as right sided heart disease 3. Wean FiO2 for sats 88% 4. Abx therapy per ID. Agree with current dose of steroid for PJP treatment. Subjective Date of service: 01/09/19 Interval history: Could not tolerate bipap, even after 5 of haldol. Remain on Venti-mask but work of breathing is easier today. Sats improved. Family at bedside. Objective Vital Signs - 12hr 01/09/19 01/09/19 01/09/19 00:17 02:30 03:52 Temperature 98.0 F 98.0 F Pulse Rate 103 H 124 H Pulse Rate [ 126 H Anterior Bilateral Throughout] Pulse Rate [ Apical] Pulse Rate [ Right Radial] Respiratory 18 18 Rate Respiratory 24 Rate [Anterior Bilateral Throughout] Blood Pressure 132/85 162/100 O2 Sat by Pulse 96 96 Oximetry 01/09/19 01/09/19 01/09/19 04:09 05:09 07:29 Temperature 98.5 F Pulse Rate Pulse Rate [ Anterior Bilateral Throughout] Pulse Rate [ Apical] Pulse Rate [ Right Radial] Respiratory 24 22 18 Rate Respiratory Rate [Anterior Bilateral Throughout] Blood Pressure 135/87 O2 Sat by Pulse Oximetry 01/09/19 01/09/19 01/09/19 08:00 08:09 09:52 Temperature Pulse Rate 123 H Pulse Rate [ 120 H 123 H Anterior Bilateral Throughout] Pulse Rate [ Apical] Pulse Rate [ Right Radial] Respiratory Rate Respiratory 18 18 Rate [Anterior Bilateral Throughout] Blood Pressure 148/87 O2 Sat by Pulse 93 95 Oximetry 01/09/19 10:00 Temperature Pulse Rate Pulse Rate [ Anterior Bilateral Throughout] Pulse Rate [ 121 H Apical] Pulse Rate [ 121 H Right Radial] Respiratory 31 H Rate Respiratory Rate [Anterior Bilateral Throughout] Blood Pressure O2 Sat by Pulse 97 Oximetry Constitutional: alert, appears uncomfortable Eyes: non-icteric ENT: oropharynx moist Neck: supple, no JVD Effort: very labored Ascultation: Bilateral: rales Percussion: Bilateral: not dull Cardiovascular: regular rate and rhythm (sinus tach) Gastrointestinal: normoactive bowel sounds, soft, non-tender Neurologic: normal mental status, non-focal exam CBC and BMP: 01/08/19 06:50 01/08/19 06:50 ABG, PT/INR, D-dimer: ABG POC ABG pH 7.415 (7.35-7.45) 01/08/19 17:36 POC ABG pO2 61 (80-105) L 01/08/19 17:36 POC ABG HCO3 15.0 (22-26 mml/L) 01/08/19 17:36 POC ABG Total CO2 16 (23-27mmol/L) 01/08/19 17:36 POC ABG O2 Sat 92 01/08/19 17:36 PT/INR, D-dimer PT 13.9 Sec. (12.2-14.9) 01/06/19 06:56 INR 1.10 (0.87-1.13) 01/06/19 06:56 Abnormal lab findings: Abnormal Labs 01/06/19 01/06/19 01/06/19 06:56 06:56 06:56 WBC 11.2 H RBC 3.50 L Hgb 10.5 L Hct 30.8 L Lymph % (Auto) 2.7 L [place] % (Auto) 8.0 H Lymph # 0.3 L [place] # 0.9 H Seg Neutrophils % 86.7 H Seg Neuts % (Manual) Lymphocytes % (Manual) Seg Neutrophils # 9.7 H Seg Neutrophils # Man Lymphocytes # (Manual) POC ABG pH POC ABG pO2 VBG pH 7.459 H Sodium 130 L Carbon Dioxide 18 L Creatinine 0.7 L Glucose 119 H POC Glucose Calcium 8.1 L NT-Pro-B Natriuret Pep Albumin 2.4 L 01/06/19 01/07/19 01/07/19 06:59 08:39 11:17 WBC RBC Hgb Hct Lymph % (Auto) [place] % (Auto) Lymph # [place] # Seg Neutrophils % Seg Neuts % (Manual) Lymphocytes % (Manual) Seg Neutrophils # Seg Neutrophils # Man Lymphocytes # (Manual) POC ABG pH 7.474 H POC ABG pO2 58 L VBG pH Sodium Carbon Dioxide Creatinine Glucose POC Glucose 132 H 219 H Calcium NT-Pro-B Natriuret Pep Albumin 01/07/19 01/08/19 01/08/19 16:12 06:50 06:50 WBC 19.2 H RBC Hgb 11.2 L Hct 33.1 L Lymph % (Auto) [place] % (Auto) Lymph # [place] # Seg Neutrophils % Seg Neuts % (Manual) 98.0 H Lymphocytes % (Manual) 1.0 L Seg Neutrophils # Seg Neutrophils # Man 18.8 H Lymphocytes # (Manual) 0.2 L POC ABG pH POC ABG pO2 VBG pH Sodium 134 L Carbon Dioxide 15 L Creatinine Glucose POC Glucose 148 H Calcium 7.8 L NT-Pro-B Natriuret Pep Albumin 01/08/19 01/08/19 01/08/19 06:50 17:36 21:34 WBC RBC Hgb Hct Lymph % (Auto) [place] % (Auto) Lymph # [place] # Seg Neutrophils % Seg Neuts % (Manual) Lymphocytes % (Manual) Seg Neutrophils # Seg Neutrophils # Man Lymphocytes # (Manual) POC ABG pH POC ABG pO2 61 L VBG pH Sodium Carbon Dioxide Creatinine Glucose POC Glucose 208 H Calcium NT-Pro-B Natriuret Pep 1357 H Albumin 01/09/19 07:34 WBC RBC Hgb Hct Lymph % (Auto) [place] % (Auto) Lymph # [place] # Seg Neutrophils % Seg Neuts % (Manual) Lymphocytes % (Manual) Seg Neutrophils # Seg Neutrophils # Man Lymphocytes # (Manual) POC ABG pH POC ABG pO2 VBG pH Sodium Carbon Dioxide Creatinine Glucose POC Glucose 168 H Calcium NT-Pro-B Natriuret Pep Albumin
[2019-01-09] MEDS ORDERED: LASIX IV ONE (12:00)
[2019-01-09] MEDS: ZOFRAN IV PRN (12:46)
--- NOTE | 2019-01-09 13:34 | Progress Note ---
Assessment and Plan Acute hypoxic respiratory failure due to pneumonia - monitor patient to telemetry - Will provide scheduled nebulizer breathing treatment and as needed - follow sputum culture, chest x-ray showed bilateral pneumonia - Provide supplemental oxygen to keep oxygen saturation above 92% - requiring more O2 to keep sat >92%, consulted pulmonary, started on iv lasix, ordered 2d echo B/L PNA with sepsis - Obtained blood culture, sputum culture - Patient may need to be covered for PCP pneumonia as his CD4 count is unknown - ID consulted, cont iv abx per ID recommendation h/o HIV dx on Jun 2015, not on ARV since then - ID consulted, follow-up CD4, VL, HIV genotype, cryptococcal serum antigen, HBV and HCV serology, RPR Chronic hyponatremia, s/p IV fluid Noncompliance, counseled Oralcandidiasis, started fluconazole DVT prophylaxis, Lovenox Brief History: 53 y/o male with history of HIV since 2016 not taking ART (for unclear reasons), 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 CXR: CXR showed patchy left greater than right basilar opacity with left basilar air bronchograms. Subjective Date of service: 01/09/19 Interval history: patient seen and examined c/o SOB and cough patient on ventimask Objective - Exam Narrative Exam: GENERAL: well-developed and well-nourished [place] male lying on bed appeared to be in mild discomfort. HEENT: Normocephalic. Atraumatic. No conjunctival congestion or icterus. Patient has moist mucous membranes. NECK: Supple. Trachea midline. CHEST/LUNGS: Coarse breath sounds auscultated bilaterally, breathing labored.on ventimask HEART/CARDIOVASCULAR: Regular in rate and rhythm. S1 and S2 positive. ABDOMEN: Abdomen is soft, nontender. Patient has normal bowel sounds. SKIN: There is no rash. Warm and dry. NEURO: No focal motor deficit. Follows command. MUSCULOSKELETAL: No joint effusion or tenderness. EXTRIMITY: No edema, no cyanosis or clubbing. PSYCH: Cooperative. - Constitutional Vitals: Vital Signs - 12hr 01/09/19 01/09/19 01/09/19 02:30 03:52 04:09 Temperature 98.0 F Pulse Rate 124 H Pulse Rate [ 126 H Anterior Bilateral Throughout] Pulse Rate [ Apical] Pulse Rate [ Right Radial] Respiratory 18 24 Rate Respiratory 24 Rate [Anterior Bilateral Throughout] Blood Pressure 162/100 O2 Sat by Pulse 96 Oximetry 01/09/19 01/09/19 01/09/19 05:09 07:29 08:00 Temperature 98.5 F Pulse Rate Pulse Rate [ 120 H Anterior Bilateral Throughout] Pulse Rate [ Apical] Pulse Rate [ Right Radial] Respiratory 22 18 Rate Respiratory 18 Rate [Anterior Bilateral Throughout] Blood Pressure 135/87 O2 Sat by Pulse 93 Oximetry 01/09/19 01/09/19 01/09/19 08:09 09:52 10:00 Temperature Pulse Rate 123 H Pulse Rate [ 123 H Anterior Bilateral Throughout] Pulse Rate [ 121 H Apical] Pulse Rate [ 121 H Right Radial] Respiratory 31 H Rate Respiratory 18 Rate [Anterior Bilateral Throughout] Blood Pressure 148/87 O2 Sat by Pulse 95 97 Oximetry 01/09/19 11:59 Temperature 98.4 F Pulse Rate Pulse Rate [ Anterior Bilateral Throughout] Pulse Rate [ Apical] Pulse Rate [ Right Radial] Respiratory 18 Rate Respiratory Rate [Anterior Bilateral Throughout] Blood Pressure 150/97 O2 Sat by Pulse Oximetry - Labs CBC & Chem 7: 01/08/19 06:50 01/08/19 06:50 Labs: Abnormal lab results 01/08/19 01/08/19 01/08/19 Range/Units 06:50 17:36 21:34 POC ABG pO2 61 L (80-105) POC Glucose 208 H (70-105) NT-Pro-B Natriuret Pep 1357 H (0-900) pg/mL 01/09/19 01/09/19 Range/Units 07:34 12:03 POC ABG pO2 (80-105) POC Glucose 168 H 176 H (70-105) NT-Pro-B Natriuret Pep (0-900) pg/mL
[2019-01-09] MEDS: LOVENOX SUB-Q SCH (21:35)
[2019-01-09] MEDS: HumuLIN R SUB-Q SCH (21:37)
[2019-01-10 00:35] LABS: Hematocrit 34.7 % (35.5-45.6); Hemoglobin 11.6 gm/dl (11.8-15.2); Mean Corpuscular HGB Conc 34 % (32-34); Mean Corpuscular Volume 89 fl (84-94); Platelet Count 333 K/mm3 (140-440); Red Cell Distribution Width 13.8 % (13.2-15.2)
[2019-01-10] MEDS: DUONEB *Not for PRN Use IH SCH ×4 (01:09→19:11)
[2019-01-10] MEDS: ZOFRAN IV PRN ×3 (01:37→21:23)
[2019-01-10 02:26] LABS: Basophils % (Manual) 0 % (0.0-1.8); Eosinophils % (Manual) 0 % (0.0-4.3); Platelet Estimate Consistent w Auto; RBC Morphology Normal; Total Cells Counted 100
[2019-01-10] MEDS: BACTRIM DS PO SCH ×3 (05:54→21:22)
[2019-01-10] MEDS: NORCO 5/325 PO PRN ×3 (05:55→21:22)
[2019-01-10 06:29] LABS: BUN/Creatinine Ratio 26; Blood Urea Nitrogen 26 mg/dL (9-20); Calcium 8.7 mg/dL (8.4-10.2); Hemolysis Index 30
[2019-01-10] MEDS: HumuLIN R SUB-Q SCH ×4 (07:30→21:24)
--- NOTE | 2019-01-10 08:52 | Consultation ---
History of Present Illness - Reason for Consult hyponatremia - History of Present Illness Mr. León is a 53-year-old male with HIV (currently not receiving ART) who presented to the ED witha 2 week hx of cough and reported intermittent fever. Patient was seen at a clinic a primary care clinic in [place] on the and was prescribed Cefdinir, Singulair, Ventolin, omeprazole, and Tessalon pearls as well as other medications. Despite taking his medications there was no improvement. The patient complains of anterior chest pain worse with coughing. At admission, patient's SNa was 130 which initially improved to 134 but since declined to 125 prompting nephrology consultation. He has been diuresed with IV lasix. Past History Past Medical History: HIV/AIDS Past Surgical History: No surgical history Social history: smoking. denies: alcohol abuse, IV drug use Family history: hypertension Medications and Allergies Allergies Allergy/AdvReac Type Severity Reaction Status Date / Time No Known Allergies Allergy Verified 09/24/15 12:37 Home Medications Medication Instructions Recorded Confirmed Last Taken Type Acetaminophen [Acetaminophen TAB] 650 mg PO Q4H PRN #30 tablet 09/30/15 01/07/19 Unknown Rx Sulfamethoxazole/Trimethoprim 1 each PO DAILY #30 tablet 09/30/15 01/07/19 Unknown Rx [Bactrim DS TAB] Warfarin [Coumadin] 5 mg PO QHS #30 tablet 10/01/15 01/07/19 Unknown Rx Active Meds: Active Medications Acetaminophen (Tylenol) 650 mg PO Q4H PRN PRN Reason: Pain MILD(1-3)/Fever >100.5/BOOTHE Acetaminophen/Hydrocodone Bitart ([place] 5/325) 2 each PO Q6H PRN PRN Reason: Pain, Moderate (4-6) Last Admin: 01/10/19 05:55 Dose: 2 each Documented by: Albuterol/Ipratropium (Duoneb *Not For Prn Use*) 1 ampul IH Q6HRT [facility] Last Admin: 01/10/19 01:09 Dose: 1 ampul Documented by: Enoxaparin Sodium (Lovenox) 40 mg SUB-Q QDAY@2200 [facility] Last Admin: 01/09/19 21:35 Dose: 40 mg Documented by: Famotidine (Pepcid) 10 mg PO BID [facility] Last Admin: 01/09/19 21:35 Dose: 10 mg Documented by: Fluconazole (Diflucan) 200 mg PO QDAY [facility] Last Admin: 01/09/19 09:46 Dose: 200 mg Documented by: Guaifenesin (Mucinex Er) 1,200 mg PO BID [facility] Last Admin: 01/09/19 21:36 Dose: 1,200 mg Documented by: Hydralazine HCl (Apresoline) 5 mg IV Q30MIN PRN PRN Reason: Hypertension Ceftriaxone Sodium (Rocephin/Ns 1 Gm/50 Ml) 1 gm in 50 mls @ 100 mls/hr IV Q12HR [facility]; Protocol Last Admin: 01/09/19 21:37 Dose: 100 mls/hr Documented by: Insulin Human Regular (Humulin R) 0 units SUB-Q ACHS [facility]; Protocol Last Admin: 01/09/19 21:37 Dose: 1 units Documented by: Methylprednisolone Sodium Succinate (Solu-Medrol) 40 mg IV Q24HR [facility] Last Admin: 01/09/19 09:47 Dose: 40 mg Documented by: Ondansetron HCl (Zofran) 4 mg IV Q8H PRN PRN Reason: N/V unrelieved by Reglan Last Admin: 01/10/19 01:37 Dose: 4 mg Documented by: Senna (Senokot) 8.6 mg PO Q12HR [facility] Last Admin: 01/09/19 21:36 Dose: 8.6 mg Documented by: Trimethoprim/Sulfamethoxazole (Bactrim Ds) 2 each PO Q8HR [facility] Last Admin: 01/10/19 05:54 Dose: 2 each Documented by: Review of Systems All systems: negative Exam - Vital Signs Vital signs: Vital Signs Pulse Ox 90 01/06/19 05:58 - General Appearance General appearance: well-developed, well-nourished EENT: ATNC Respiratory: Decreased Breath Sounds Heart: regular, S1S2 Musculoskeletal: Present: other (no edema) Psychiatric: cooperative Results - Lab Results 01/10/19 00:18 01/10/19 15:15 Most recent lab results Calcium 8.7 mg/dL (8.4-10.2) 01/10/19 04:44 Assessment and Plan Impression: * Hyponatremia * Acute hypoxic respiratory failure secondary to infectious process vs pulmonary edema * HIV Plan: * Patient w/ worsening hyponatremia; concerned that hypoxia is related to an infectious process rather than pulmonary edema * TTE is pending * Recommend holding diuretics - have discontinued order * Will give Samsca 15g x 1 dose * Obtain urine lytes and osm * Obtain serum osm * Obtain TSH and cortisol * Repeat BMP this afternoon (ordered for 1500) * Strict I/O
[2019-01-10] MEDS ORDERED: LASIX IV NR (10:00)
--- NOTE | 2019-01-10 10:19 | Progress Note ---
Assessment and Plan Cultures: Blood cultures 01/06/2019 no growth today. 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 Still tachycardia. Etiology most likely pneumonia.HBC and HCV serology nonreactive. RPR nonreactive. 2) Bilateral pneumonia: likely PJP +/- CAP. Patient with HIV not on ART, likely AIDS. CXR showed patchy left greater than right basilar opacity with left basilar air bronchograms. on O2. 3) Oral candidiasis: Improved Recommendations: - follow-up blood cultures - continue bactrim DS 2 tab po TID to treat empirically PJP - continue fluconazole 200mg PO qday, D6 - continue ceftriaxone 1gm every 12 hours, D6 of D7 - follow-up CD4, VL, HIV genotype - needs education about consistent HIV management -discussed with case managem ent and patient. Information will be provided to follow-up with [facility] to start ART therapy [facility] M: [phone] O:[phone] Subjective Date of service: 01/10/19 Interval history: Patient seen and examined. Primary language Slovenian. Conversation via interpretation line. Diffuse abdominal pain reported. No fever or SOB. Objective - Exam Narrative Exam: General appearance: Awake. Alert. Diffuse abdominal pain. Eyes: anicteric sclerae, moist conjunctivae; no lid-lag; PERRLA HENT: Atraumatic; oropharynx clear with moist mucous membranes and +mild oral thrush; normal hard and soft palate. Normal external ears. Neck: Trachea midline; supple, no thyromegaly or lymphadenopathy Lungs: fine crackles LLL CV: ST Abdomen: Soft, diffuse tenderness and pain. Extremities: no edema, cyanosis Skin: Normal temperature, turgor and texture; no rash, ulcers or subcutaneous nodules Psych: Appropriate affect, alert and oriented to person, place and time. Neuro: alert and oriented x 3. Moving all extremities - Constitutional Vitals: Vital Signs Temp Pulse Resp BP Pulse Ox 98.0 F 104 H 22 155/97 98 01/10/19 09:39 01/10/19 09:39 01/10/19 09:39 01/10/19 09:39 01/10/19 09:39 Temperature -Last 24 Hours Temperature 98.0 F Temperature 97.7 F Temperature 98.3 F Temperature 98.3 F Temperature 98.4 F Temperature 98.4 F - Labs CBC & Chem 7: 01/10/19 00:18 01/10/19 04:44 Labs: Abnormal lab results 01/09/19 01/09/19 01/09/19 Range/Units 12:03 16:08 20:58 WBC (4.5-11.0) K/mm3 Hgb (11.8-15.2) gm/dl Hct (35.5-45.6) % Seg Neuts % (Manual) (40.0-70.0) % Lymphocytes % (Manual) (13.4-35.0) % Seg Neutrophils # Man (1.8-7.7) K/mm3 Lymphocytes # (Manual) (1.2-5.4) K/mm3 Sodium (137-145) mmol/L Chloride (98-107) mmol/L Carbon Dioxide (22-30) mmol/L BUN (9-20) mg/dL Glucose (75-100) mg/dL POC Glucose 176 H 232 H 174 H (70-105) 01/10/19 01/10/19 01/10/19 Range/Units 00:18 04:44 07:34 WBC 13.8 H (4.5-11.0) K/mm3 Hgb 11.6 L (11.8-15.2) gm/dl Hct 34.7 L (35.5-45.6) % Seg Neuts % (Manual) 96.0 H (40.0-70.0) % Lymphocytes % (Manual) 2.0 L (13.4-35.0) % Seg Neutrophils # Man 13.2 H (1.8-7.7) K/mm3 Lymphocytes # (Manual) 0.3 L (1.2-5.4) K/mm3 Sodium 125 L D (137-145) mmol/L Chloride 91.9 L (98-107) mmol/L Carbon Dioxide 16 L (22-30) mmol/L BUN 26 H (9-20) mg/dL Glucose 168 H (75-100) mg/dL POC Glucose 143 H (70-105)
[2019-01-10] MEDS: PEPCID PO SCH ×2 (10:49→21:22)
[2019-01-10] MEDS: SENOKOT PO SCH ×2 (10:49→21:24)
[2019-01-10] MEDS: SOLU-Medrol IV SCH (10:50)
[2019-01-10] MEDS: MUCINEX ER PO SCH ×2 (10:50→21:22)
[2019-01-10] MEDS: ROCEPHIN/NS 1 GM/50 ML 1 GM/50 ML BAG IV SCH ×2 (10:51→21:23)
[2019-01-10] MEDS: DIFLUCAN PO SCH (10:52)
[2019-01-10 11:08] LABS: Bacteria,Urine 1+ /HPF (Negative); Bilirubin,Urine NEG (Negative); Blood,Urine NEG (Negative); Color,Urine Yellow (Yellow); Protein,Urine <15 mg/dL mg/dL (Negative); Urobilinogen,Urine < 2.0 mg/dL (<2.0)
[2019-01-10] MEDS ORDERED: SAMSCA PO ONE (11:30)
--- NOTE | 2019-01-10 11:30 | Progress Note ---
Assessment and Plan 53 y/o with acute respiratory failure, initially thought secondary to pneumonia, now worsening, most likely secondary to volume overload. 1. lasix 40mg IV again today. 2. No evidence of pulmonary htn on echo 3. Wean FiO2 for sats 88% 4. Abx therapy per ID. Agree with current dose of steroid for PJP treatment. 5. Needs better BP control Subjective Date of service: 01/10/19 Interval history: No acute events. Still having some labored breathing. Transitioned to 6 liters with good sats. Objective Vital Signs - 12hr 01/10/19 01/10/19 01/10/19 01:11 01:18 03:48 Temperature 97.7 F Pulse Rate 114 H Pulse Rate [ 114 H 110 H Anterior Bilateral Throughout] Pulse Rate [ Bilateral] Respiratory 20 Rate Respiratory 18 18 Rate [Anterior Bilateral Throughout] Respiratory Rate [Bilateral ] Blood Pressure 176/101 Blood Pressure [Right] O2 Sat by Pulse 96 Oximetry 01/10/19 01/10/19 01/10/19 08:06 08:18 08:20 Temperature Pulse Rate 114 H 114 H Pulse Rate [ Anterior Bilateral Throughout] Pulse Rate [ Bilateral] Respiratory 20 Rate Respiratory Rate [Anterior Bilateral Throughout] Respiratory Rate [Bilateral ] Blood Pressure 176/101 Blood Pressure [Right] O2 Sat by Pulse 96 100 Oximetry 01/10/19 01/10/19 01/10/19 09:39 10:00 10:24 Temperature 98.0 F Pulse Rate 104 H Pulse Rate [ 102 H Anterior Bilateral Throughout] Pulse Rate [ 105 H Bilateral] Respiratory 22 Rate Respiratory 20 Rate [Anterior Bilateral Throughout] Respiratory 20 Rate [Bilateral ] Blood Pressure Blood Pressure 155/97 [Right] O2 Sat by Pulse 98 97 Oximetry 01/10/19 10:29 Temperature Pulse Rate Pulse Rate [ Anterior Bilateral Throughout] Pulse Rate [ Bilateral] Respiratory Rate Respiratory Rate [Anterior Bilateral Throughout] Respiratory Rate [Bilateral ] Blood Pressure Blood Pressure [Right] O2 Sat by Pulse 97 Oximetry Constitutional: alert, appears uncomfortable Eyes: non-icteric ENT: oropharynx moist Neck: supple, no JVD Effort: very labored Ascultation: Bilateral: rales Percussion: Bilateral: not dull Cardiovascular: regular rate and rhythm (sinus tach) Gastrointestinal: normoactive bowel sounds, soft, non-tender Neurologic: normal mental status, non-focal exam CBC and BMP: 01/10/19 00:18 01/10/19 04:44 ABG, PT/INR, D-dimer: ABG POC ABG pH 7.415 (7.35-7.45) 01/08/19 17:36 POC ABG pO2 61 (80-105) L 01/08/19 17:36 POC ABG HCO3 15.0 (22-26 mml/L) 01/08/19 17:36 POC ABG Total CO2 16 (23-27mmol/L) 01/08/19 17:36 POC ABG O2 Sat 92 01/08/19 17:36 PT/INR, D-dimer PT 13.9 Sec. (12.2-14.9) 01/06/19 06:56 INR 1.10 (0.87-1.13) 01/06/19 06:56 Abnormal lab findings: Abnormal Labs 01/06/19 01/06/19 01/06/19 06:56 06:56 06:56 WBC 11.2 H RBC 3.50 L Hgb 10.5 L Hct 30.8 L Lymph % (Auto) 2.7 L [place] % (Auto) 8.0 H Lymph # 0.3 L [place] # 0.9 H Seg Neutrophils % 86.7 H Seg Neuts % (Manual) Lymphocytes % (Manual) Seg Neutrophils # 9.7 H Seg Neutrophils # Man Lymphocytes # (Manual) POC ABG pH POC ABG pO2 VBG pH 7.459 H Sodium 130 L Chloride Carbon Dioxide 18 L BUN Creatinine 0.7 L Glucose 119 H POC Glucose Calcium 8.1 L NT-Pro-B Natriuret Pep Albumin 2.4 L 01/06/19 01/07/19 01/07/19 06:59 08:39 11:17 WBC RBC Hgb Hct Lymph % (Auto) [place] % (Auto) Lymph # [place] # Seg Neutrophils % Seg Neuts % (Manual) Lymphocytes % (Manual) Seg Neutrophils # Seg Neutrophils # Man Lymphocytes # (Manual) POC ABG pH 7.474 H POC ABG pO2 58 L VBG pH Sodium Chloride Carbon Dioxide BUN Creatinine Glucose POC Glucose 132 H 219 H Calcium NT-Pro-B Natriuret Pep Albumin 01/07/19 01/08/19 01/08/19 16:12 06:50 06:50 WBC 19.2 H RBC Hgb 11.2 L Hct 33.1 L Lymph % (Auto) [place] % (Auto) Lymph # [place] # Seg Neutrophils % Seg Neuts % (Manual) 98.0 H Lymphocytes % (Manual) 1.0 L Seg Neutrophils # Seg Neutrophils # Man 18.8 H Lymphocytes # (Manual) 0.2 L POC ABG pH POC ABG pO2 VBG pH Sodium 134 L Chloride Carbon Dioxide 15 L BUN Creatinine Glucose POC Glucose 148 H Calcium 7.8 L NT-Pro-B Natriuret Pep Albumin 01/08/19 01/08/19 01/08/19 06:50 17:36 21:34 WBC RBC Hgb Hct Lymph % (Auto) [place] % (Auto) Lymph # [place] # Seg Neutrophils % Seg Neuts % (Manual) Lymphocytes % (Manual) Seg Neutrophils # Seg Neutrophils # Man Lymphocytes # (Manual) POC ABG pH POC ABG pO2 61 L VBG pH Sodium Chloride Carbon Dioxide BUN Creatinine Glucose POC Glucose 208 H Calcium NT-Pro-B Natriuret Pep 1357 H Albumin 01/09/19 01/09/19 01/09/19 07:34 12:03 16:08 WBC RBC Hgb Hct Lymph % (Auto) [place] % (Auto) Lymph # [place] # Seg Neutrophils % Seg Neuts % (Manual) Lymphocytes % (Manual) Seg Neutrophils # Seg Neutrophils # Man Lymphocytes # (Manual) POC ABG pH POC ABG pO2 VBG pH Sodium Chloride Carbon Dioxide BUN Creatinine Glucose POC Glucose 168 H 176 H 232 H Calcium NT-Pro-B Natriuret Pep Albumin 01/09/19 01/10/19 01/10/19 20:58 00:18 04:44 WBC 13.8 H RBC Hgb 11.6 L Hct 34.7 L Lymph % (Auto) [place] % (Auto) Lymph # [place] # Seg Neutrophils % Seg Neuts % (Manual) 96.0 H Lymphocytes % (Manual) 2.0 L Seg Neutrophils # Seg Neutrophils # Man 13.2 H Lymphocytes # (Manual) 0.3 L POC ABG pH POC ABG pO2 VBG pH Sodium 125 L D Chloride 91.9 L Carbon Dioxide 16 L BUN 26 H Creatinine Glucose 168 H POC Glucose 174 H Calcium NT-Pro-B Natriuret Pep Albumin 01/10/19 01/10/19 07:34 11:22 WBC RBC Hgb Hct Lymph % (Auto) [place] % (Auto) Lymph # [place] # Seg Neutrophils % Seg Neuts % (Manual) Lymphocytes % (Manual) Seg Neutrophils # Seg Neutrophils # Man Lymphocytes # (Manual) POC ABG pH POC ABG pO2 VBG pH Sodium Chloride Carbon Dioxide BUN Creatinine Glucose POC Glucose 143 H 170 H Calcium NT-Pro-B Natriuret Pep Albumin
--- NOTE | 2019-01-10 14:03 | Progress Note ---
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 Acute hypoxic respiratory failure due to pneumonia - monitor patient - Will provide scheduled nebulizer breathing treatment and as needed - follow sputum culture, chest x-ray showed bilateral pneumonia - Provide supplemental oxygen to keep oxygen saturation above 92% - requiring more O2 to keep sat >92%, consulted pulmonary, started on iv lasix, ordered 2d echo B/L PNA with sepsis - Obtained blood culture, sputum culture - ID consulted, cont iv abx per ID recommendation h/o HIV dx on Jun 2015, not on ARV since then - ID Physician following follow-up CD4, VL, HIV genotype, cryptococcal serum antigen, HBV and HCV serology, RPR Hyponatremia, Consult Nephrology Noncompliance, counseled Oralcandidiasis, started fluconazole DVT prophylaxis, Lovenox History Interval history: Shortness of breath No fever Hospitalist Physical - Physical exam Narrative exam: Gen: Not in acute distress, lying in bed,On Oxygen by ventimask HEENT: Normocephalic, atraumatic Neck: supple, no JVD Heart: S1 and S2 reg, no murmurs, rubs or gallop Lungs: Crackles left base, no wheeze Abd: soft, non tender, non distended, normal BS Ext: No edema, no clubbing, no cyanosis, Neuro: Awake,alert, moves all ext, non focal Psych:Normal mood - Constitutional Vitals: Temp Pulse Resp BP Pulse Ox 98.0 F 102 H 20 155/97 97 01/10/19 09:39 01/10/19 10:24 01/10/19 10:24 01/10/19 09:39 01/10/19 10:29 Results - Labs CBC & Chem 7: 01/10/19 00:18 01/10/19 04:44 Labs: Laboratory Last Values WBC 13.8 K/mm3 (4.5-11.0) H 01/10/19 00:18 RBC 3.90 M/mm3 (3.65-5.03) 01/10/19 00:18 Hgb 11.6 gm/dl (11.8-15.2) L 01/10/19 00:18 Hct 34.7 % (35.5-45.6) L 01/10/19 00:18 MCV 89 fl (84-94) 01/10/19 00:18 MCH 30 pg (28-32) 01/10/19 00:18 MCHC 34 % (32-34) 01/10/19 00:18 RDW 13.8 % (13.2-15.2) 01/10/19 00:18 Plt Count 333 K/mm3 (140-440) 01/10/19 00:18 Lymph % (Auto) 2.7 % (13.4-35.0) L 01/06/19 06:56 [place] % (Auto) 8.0 % (0.0-7.3) H 01/06/19 06:56 Eos % (Auto) 2.3 % (0.0-4.3) 01/06/19 06:56 Baso % (Auto) 0.3 % (0.0-1.8) 01/06/19 06:56 Lymph # 0.3 K/mm3 (1.2-5.4) L 01/06/19 06:56 [place] # 0.9 K/mm3 (0.0-0.8) H 01/06/19 06:56 Eos # 0.3 K/mm3 (0.0-0.4) 01/06/19 06:56 Baso # 0.0 K/mm3 (0.0-0.1) 01/06/19 06:56 Add Manual Diff Complete 01/10/19 00:18 Total Counted 100 01/10/19 00:18 Seg Neutrophils % Filling Carrier 01/10/19 00:18 Seg Neuts % (Manual) 96.0 % (40.0-70.0) H 01/10/19 00:18 0 % 01/10/19 00:18 2.0 % (13.4-35.0) L 01/10/19 00:18 Reactive Lymphs % (Man) 0 % 01/10/19 00:18 2.0 % (0.0-7.3) 01/10/19 00:18 0 % (0.0-4.3) 01/10/19 00:18 0 % (0.0-1.8) 01/10/19 00:18 0 % 01/10/19 00:18 0 % 01/10/19 00:18 0 % 01/10/19 00:18 0 % 01/10/19 00:18 Nucleated RBC % Not Reportable 01/10/19 00:18 Seg Neutrophils # 9.7 K/mm3 (1.8-7.7) H 01/06/19 06:56 Seg Neutrophils # Man 13.2 K/mm3 (1.8-7.7) H 01/10/19 00:18 Band Neutrophils # 0.0 K/mm3 01/10/19 00:18 0.3 K/mm3 (1.2-5.4) L 01/10/19 00:18 Abs React Lymphs (Man) 0.0 K/mm3 01/10/19 00:18 0.3 K/mm3 (0.0-0.8) 01/10/19 00:18 0.0 K/mm3 (0.0-0.4) 01/10/19 00:18 0.0 K/mm3 (0.0-0.1) 01/10/19 00:18 0.0 K/mm3 01/10/19 00:18 0.0 K/mm3 01/10/19 00:18 0.0 K/mm3 01/10/19 00:18 Blast Cells # 0.0 K/mm3 01/10/19 00:18 WBC Morphology Not Reportable 01/10/19 00:18 Hypersegmented Neuts Not Reportable 01/10/19 00:18 Hyposegmented Neuts Not Reportable 01/10/19 00:18 Hypogranular Neuts Not Reportable 01/10/19 00:18 Not Reportable 01/10/19 00:18 Not Reportable 01/10/19 00:18 Not Reportable 01/10/19 00:18 Not Reportable 01/10/19 00:18 Not Reportable 01/10/19 00:18 Not Reportable 01/10/19 00:18 Consistent w auto 01/10/19 00:18 Not Reportable 01/10/19 00:18 Plt Clumps, EDTA Not Reportable 01/10/19 00:18 Not Reportable 01/10/19 00:18 Not Reportable 01/10/19 00:18 Not Reportable 01/10/19 00:18 Plt Morphology Comment Not Reportable 01/10/19 00:18 RBC Morphology Normal 01/10/19 00:18 Dimorphic RBCs Not Reportable 01/10/19 00:18 Not Reportable 01/10/19 00:18 Not Reportable 01/10/19 00:18 Not Reportable 01/10/19 00:18 Not Reportable 01/10/19 00:18 Not Reportable 01/10/19 00:18 Not Reportable 01/10/19 00:18 Not Reportable 01/10/19 00:18 Not Reportable 01/10/19 00:18 Not Reportable 01/10/19 00:18 Not Reportable 01/10/19 00:18 Not Reportable 01/10/19 00:18 Not Reportable 01/10/19 00:18 Not Reportable 01/10/19 00:18 Not Reportable 01/10/19 00:18 Not Reportable 01/10/19 00:18 Not Reportable 01/10/19 00:18 Not Reportable 01/10/19 00:18 Not Reportable 01/10/19 00:18 Not Reportable 01/10/19 00:18 Acanthocytes (Spur) Not Reportable 01/10/19 00:18 [place] Not Reportable 01/10/19 00:18 Not Reportable 01/10/19 00:18 Not Reportable 01/10/19 00:18 Not Reportable 01/10/19 00:18 Not Reportable 01/10/19 00:18 Hem Pathologist Commnt No 01/10/19 00:18 PT 13.9 Sec. (12.2-14.9) 01/06/19 06:56 INR 1.10 (0.87-1.13) 01/06/19 06:56 APTT 34.9 Sec. (24.2-36.6) 01/06/19 06:56 POC ABG pH 7.415 (7.35-7.45) 01/08/19 17:36 POC ABG pO2 61 (80-105) L 01/08/19 17:36 POC ABG HCO3 15.0 (22-26 mml/L) 01/08/19 17:36 POC ABG Total CO2 16 (23-27mmol/L) 01/08/19 17:36 POC ABG O2 Sat 92 01/08/19 17:36 POC ABG Base Excess -10 ((-2) - (+3)mmol/L) 01/08/19 17:36 VBG pH 7.459 (7.320-7.420) H 01/06/19 06:56 40 % 01/08/19 17:36 Sodium 125 mmol/L (137-145) L D 01/10/19 04:44 Potassium 4.0 mmol/L (3.6-5.0) 01/10/19 04:44 Chloride 91.9 mmol/L (98-107) L 01/10/19 04:44 Carbon Dioxide 16 mmol/L (22-30) L 01/10/19 04:44 21 mmol/L 01/10/19 04:44 BUN 26 mg/dL (9-20) H 01/10/19 04:44 1.0 mg/dL (0.8-1.5) 01/10/19 04:44 Estimated GFR > 60 ml/min 01/10/19 04:44 26 % 01/10/19 04:44 Glucose 168 mg/dL (75-100) H 01/10/19 04:44 POC Glucose 170 (70-105) H 01/10/19 11:22 275 Mosm/kg 01/10/19 10:36 Lactic Acid 1.10 mmol/L (0.7-2.0) 01/06/19 09:43 Calcium 8.7 mg/dL (8.4-10.2) 01/10/19 04:44 0.40 mg/dL (0.1-1.2) 01/06/19 06:56 < 0.2 mg/dL (0-0.2) 01/06/19 06:56 AST 27 units/L (5-40) 01/06/19 06:56 ALT 14 units/L (7-56) 01/06/19 06:56 65 units/L (35-129) 01/06/19 06:56 < 0.010 ng/mL (0.00-0.029) 01/06/19 12:15 NT-Pro-B Natriuret Pep 1357 pg/mL (0-900) H 01/08/19 06:50 7.2 g/dL (6.3-8.2) 01/06/19 06:56 2.4 g/dL (3.9-5) L 01/06/19 06:56 0.5 % 01/06/19 06:56 TSH 0.118 mlU/mL (0.270-4.200) L 01/10/19 10:36 Yellow (Yellow) 01/10/19 Unknown Cloudy (Clear) 01/10/19 Unknown 7.0 (5.0-7.0) 01/10/19 Unknown Ur Specific [place] 1.016 (1.003-1.030) 01/10/19 Unknown <15 mg/dl mg/dL (Negative) 01/10/19 Unknown Neg mg/dL (Negative) 01/10/19 Unknown Neg mg/dL (Negative) 01/10/19 Unknown Neg (Negative) 01/10/19 Unknown Neg (Negative) 01/10/19 Unknown Neg (Negative) 01/10/19 Unknown < 2.0 mg/dL (<2.0) 01/10/19 Unknown Ur Leukocyte Esterase Neg (Negative) 01/10/19 Unknown 4.0 /HPF (0.0-6.0) 01/10/19 Unknown 1.0 /HPF (0.0-6.0) 01/10/19 Unknown 1+ /HPF (Negative) 01/10/19 Unknown Few /HPF 01/06/19 08:09 RPR Nonreactive (Nonreactive) 01/06/19 13:32 Hepatitis A IgM Ab Non-reactive (NonReactive) 01/06/19 13:32 Hep Bs Antigen Non-reactive (Negative) 01/06/19 13:32 Hep B Core IgM Ab Non-reactive (NonReactive) 01/06/19 13:32 Non-reactive (NonReactive) 01/06/19 13:32 Active Medications - Current Medications Current Medications: Generic Name Dose Route Start Last Admin Trade Name Freq PRN Reason Stop Dose Admin Acetaminophen 650 mg 01/06/19 10:07 Tylenol PO Q4H PRN Pain MILD(1-3)/Fever >100.5/BOOTHE Acetaminophen/Hydrocodone Bitart 2 each 01/06/19 10:07 01/10/19 05:55 [place] 5/325 PO 2 each Q6H PRN Administration Pain, Moderate (4-6) Albuterol/Ipratropium 1 ampul 01/06/19 11:00 01/10/19 10:14 Duoneb *Not For Prn Use* IH 1 ampul Q6HRT DIOGENES Administration Enoxaparin Sodium 40 mg 01/06/19 22:00 01/09/19 21:35 Lovenox SUB-Q 40 mg QDAY@2200 DIOGENES Administration Famotidine 10 mg 01/06/19 22:00 01/10/19 10:49 Pepcid PO 10 mg BID DIOGENES Administration Fluconazole 200 mg 01/06/19 14:00 01/10/19 10:52 Diflucan PO 200 mg QDAY DIOGENES Administration Guaifenesin 1,200 mg 01/07/19 10:00 01/10/19 10:50 Mucinex Er PO 1,200 mg BID DIOGENES Administration Hydralazine HCl 5 mg 01/06/19 10:07 Apresoline IV Q30MIN PRN Hypertension Ceftriaxone Sodium 1 gm in 50 mls @ 100 mls/hr 01/06/19 22:00 01/10/19 10:51 Rocephin/Ns 1 Gm/50 Ml IV 100 mls/hr Q12HR DIOGENES Administration Protocol Insulin Human Regular 0 units 01/09/19 22:00 01/10/19 11:38 Humulin R SUB-Q Not Given ACHS [facility] Protocol Methylprednisolone Sodium Succinate 40 mg 01/08/19 13:00 01/10/19 10:50 Solu-Medrol IV 40 mg Q24HR DIOGENES Administration Ondansetron HCl 4 mg 01/06/19 10:07 01/10/19 11:40 Zofran IV 4 mg Q8H PRN Administration N/V unrelieved by James Senna 8.6 mg 01/06/19 22:00 01/10/19 10:49 Senokot PO 8.6 mg Q12HR DIOGENES Administration Trimethoprim/Sulfamethoxazole 2 each 01/06/19 14:00 01/10/19 05:54 Bactrim Ds PO 2 each Q8HR DIOGENES Administration Nutrition/Malnutrition Assess - Dietary Evaluation Nutrition/Malnutrition Findings: Nutrition Notes Start: 01/07/19 12:44 Freq: Status: Active Protocol: Document 01/10/19 09:47 LP (Rec: 01/10/19 09:51 LP [id number]) Nutrition Notes Initial or Follow up Reassessment Other Pertinent Diagnosis Abdominal pain, Bilat pneu, HIV, Hyponatremia Current Diet Regular with Ensure Enlive chocolate TID Labs/Tests Na 125 BUN 26 BG 168 Pertinent Medications Reviewed Height 5 ft 6 in Weight 59.5 kg [place] Body Weight (kg) 64.54 BMI 21.2 Subjective/Other Information Pt states not eating anything. Pt states abdominal pain and vomiting. Pt should have GI on case to see what is going on with abdomen. Percent of energy/protein needs met: 0%/0% Burn Absent Trauma Absent #2 Nutrition Diagnosis Inadequate oral intake Etiology abdominal pain and vomiting As Evidenced by Signs and Symptoms Pt consuming 0% of meals and supplements #1 Nutrition Diagnosis Predicted suboptimal energy intake As Evidenced by Signs and Symptoms Not eating anything Diagnosis Progress(for reassessment Resolved documentation) Is patient on ventilator? No Is Patient Ambulatory and/or Out of Bed Yes REE-([facility]-ambulatory/OOB) [ 1791.075 NUTR.[id number]] Calculation Used for Recommendations [facility] Additional Notes Pro needs 1-1.2g/k-77g/ day Fluid needs 1ml/kcal Nutrition Intervention Change Diet Order: Continue Add Supplement/Snack (indicate name/kcal D/C /protein ) Goal #1 PO intake of meals plus ONS to meet at least 75% energy and pro needs Goal #2 GI testing Anticipated Discharge Needs: Unable to determine at this time Follow-Up By: 01/12/19 Additional Comments Follow for GI notes, intakes?
[2019-01-10 16:59] LABS: BUN/Creatinine Ratio 22; Blood Urea Nitrogen 22 mg/dL (9-20); Calcium 8.6 mg/dL (8.4-10.2); Hemolysis Index 145
[2019-01-10] MEDS ORDERED: LASIX IV SCH (18:00)
[2019-01-10 18:16] LABS: HIV-1 RNA QN PCR 6.24 Log cps/mL
[2019-01-10] MEDS ORDERED: KIONEX PO ONE (19:30)
[2019-01-10] MEDS: LOVENOX SUB-Q SCH (21:22)
[2019-01-11] MEDS: DUONEB *Not for PRN Use IH SCH ×4 (03:18→20:30)
[2019-01-11 05:35] LABS: Hematocrit 34.6 % (35.5-45.6); Mean Corpuscular HGB Conc 35 % (32-34); Mean Corpuscular Volume 87 fl (84-94); Platelet Count 411 K/mm3 (140-440); Red Blood Count 3.95 M/mm3 (3.65-5.03); Red Cell Distribution Width 13.7 % (13.2-15.2)
[2019-01-11 05:58] LABS: BUN/Creatinine Ratio 19; Blood Urea Nitrogen 21 mg/dL (9-20); Calcium 9.4 mg/dL (8.4-10.2); Hemolysis Index 11
[2019-01-11] MEDS: ZOFRAN IV PRN (06:14)
[2019-01-11] MEDS: NORCO 5/325 PO PRN (06:14)
[2019-01-11] MEDS: BACTRIM DS PO SCH ×3 (06:14→21:44)
--- NOTE | 2019-01-11 09:11 | Progress Note ---
Assessment and Plan 53 y/o with acute respiratory failure, initially thought secondary to pneumonia, now worsening, most likely secondary to volume overload. 1. lasix 40mg IV again today. 2. Follow up echo 3. Wean FiO2 for sats 88% 4. Abx therapy per ID. Agree with current dose of steroid for PJP treatment. 5. Needs better BP control Subjective Date of service: 01/11/19 Interval history: Down to 5 liters NC. Sats in the low 90's. Negative yesterday. About 470. Na now 134. Objective Vital Signs - 12hr 01/10/19 01/10/19 01/10/19 21:22 22:00 23:16 Temperature 98.9 F Pulse Rate 111 H 104 H Pulse Rate [ 120 H Apical] Pulse Rate [ Bilateral] Respiratory 20 22 19 Rate Respiratory Rate [Bilateral ] Respiratory 22 Rate [Right Neck] Blood Pressure 135/87 O2 Sat by Pulse 95 93 Oximetry 01/11/19 01/11/19 01/11/19 00:02 04:01 06:14 Temperature 97.9 F Pulse Rate 101 H 102 H Pulse Rate [ Apical] Pulse Rate [ Bilateral] Respiratory 18 19 20 Rate Respiratory Rate [Bilateral ] Respiratory Rate [Right Neck] Blood Pressure 139/98 O2 Sat by Pulse 98 92 Oximetry 01/11/19 01/11/19 01/11/19 07:14 07:25 08:27 Temperature 98.0 F Pulse Rate 103 H Pulse Rate [ Apical] Pulse Rate [ 100 H 105 H Bilateral] Respiratory 14 Rate Respiratory 18 17 Rate [Bilateral ] Respiratory Rate [Right Neck] Blood Pressure 130/88 O2 Sat by Pulse 95 Oximetry 01/11/19 08:47 Temperature Pulse Rate Pulse Rate [ Apical] Pulse Rate [ Bilateral] Respiratory Rate Respiratory Rate [Bilateral ] Respiratory Rate [Right Neck] Blood Pressure O2 Sat by Pulse 92 Oximetry Constitutional: alert, appears uncomfortable Eyes: non-icteric ENT: oropharynx moist Neck: supple, no JVD Effort: very labored Ascultation: Bilateral: rales Percussion: Bilateral: not dull Cardiovascular: regular rate and rhythm (sinus tach) Gastrointestinal: normoactive bowel sounds, soft, non-tender Neurologic: normal mental status, non-focal exam CBC and BMP: 01/13/19 04:13 01/13/19 04:13 ABG, PT/INR, D-dimer: ABG POC ABG pH 7.415 (7.35-7.45) 01/08/19 17:36 POC ABG pO2 61 (80-105) L 01/08/19 17:36 POC ABG HCO3 15.0 (22-26 mml/L) 01/08/19 17:36 POC ABG Total CO2 16 (23-27mmol/L) 01/08/19 17:36 POC ABG O2 Sat 92 01/08/19 17:36 PT/INR, D-dimer PT 13.9 Sec. (12.2-14.9) 01/06/19 06:56 INR 1.10 (0.87-1.13) 01/06/19 06:56 Abnormal lab findings: Abnormal Labs 01/06/19 01/06/19 01/06/19 06:56 06:56 06:56 WBC 11.2 H RBC 3.50 L Hgb 10.5 L Hct 30.8 L MCHC Lymph % (Auto) 2.7 L [place] % (Auto) 8.0 H Lymph # 0.3 L [place] # 0.9 H Seg Neutrophils % 86.7 H Seg Neuts % (Manual) Lymphocytes % (Manual) Seg Neutrophils # 9.7 H Seg Neutrophils # Man Lymphocytes # (Manual) POC ABG pH POC ABG pO2 VBG pH 7.459 H Sodium 130 L Potassium Chloride Carbon Dioxide 18 L BUN Creatinine 0.7 L Glucose 119 H POC Glucose Calcium 8.1 L NT-Pro-B Natriuret Pep Albumin 2.4 L TSH HIV-1 RNA PCR copies/ml HIV-1 RNA (PCR) log 01/06/19 01/06/19 01/07/19 06:59 13:32 08:39 WBC RBC Hgb Hct MCHC Lymph % (Auto) [place] % (Auto) Lymph # [place] # Seg Neutrophils % Seg Neuts % (Manual) Lymphocytes % (Manual) Seg Neutrophils # Seg Neutrophils # Man Lymphocytes # (Manual) POC ABG pH 7.474 H POC ABG pO2 58 L VBG pH Sodium Potassium Chloride Carbon Dioxide BUN Creatinine Glucose POC Glucose 132 H Calcium NT-Pro-B Natriuret Pep Albumin TSH HIV-1 RNA PCR copies/ml [id number] H HIV-1 RNA (PCR) log 6.24 H 01/07/19 01/07/19 01/08/19 11:17 16:12 06:50 WBC 19.2 H RBC Hgb 11.2 L Hct 33.1 L MCHC Lymph % (Auto) [place] % (Auto) Lymph # [place] # Seg Neutrophils % Seg Neuts % (Manual) 98.0 H Lymphocytes % (Manual) 1.0 L Seg Neutrophils # Seg Neutrophils # Man 18.8 H Lymphocytes # (Manual) 0.2 L POC ABG pH POC ABG pO2 VBG pH Sodium Potassium Chloride Carbon Dioxide BUN Creatinine Glucose POC Glucose 219 H 148 H Calcium NT-Pro-B Natriuret Pep Albumin TSH HIV-1 RNA PCR copies/ml HIV-1 RNA (PCR) log 01/08/19 01/08/19 01/08/19 06:50 06:50 17:36 WBC RBC Hgb Hct MCHC Lymph % (Auto) [place] % (Auto) Lymph # [place] # Seg Neutrophils % Seg Neuts % (Manual) Lymphocytes % (Manual) Seg Neutrophils # Seg Neutrophils # Man Lymphocytes # (Manual) POC ABG pH POC ABG pO2 61 L VBG pH Sodium 134 L Potassium Chloride Carbon Dioxide 15 L BUN Creatinine Glucose POC Glucose Calcium 7.8 L NT-Pro-B Natriuret Pep 1357 H Albumin TSH HIV-1 RNA PCR copies/ml HIV-1 RNA (PCR) log 01/08/19 01/09/19 01/09/19 21:34 07:34 12:03 WBC RBC Hgb Hct MCHC Lymph % (Auto) [place] % (Auto) Lymph # [place] # Seg Neutrophils % Seg Neuts % (Manual) Lymphocytes % (Manual) Seg Neutrophils # Seg Neutrophils # Man Lymphocytes # (Manual) POC ABG pH POC ABG pO2 VBG pH Sodium Potassium Chloride Carbon Dioxide BUN Creatinine Glucose POC Glucose 208 H 168 H 176 H Calcium NT-Pro-B Natriuret Pep Albumin TSH HIV-1 RNA PCR copies/ml HIV-1 RNA (PCR) log 01/09/19 01/09/19 01/10/19 16:08 20:58 00:18 WBC 13.8 H RBC Hgb 11.6 L Hct 34.7 L MCHC Lymph % (Auto) [place] % (Auto) Lymph # [place] # Seg Neutrophils % Seg Neuts % (Manual) 96.0 H Lymphocytes % (Manual) 2.0 L Seg Neutrophils # Seg Neutrophils # Man 13.2 H Lymphocytes # (Manual) 0.3 L POC ABG pH POC ABG pO2 VBG pH Sodium Potassium Chloride Carbon Dioxide BUN Creatinine Glucose POC Glucose 232 H 174 H Calcium NT-Pro-B Natriuret Pep Albumin TSH HIV-1 RNA PCR copies/ml HIV-1 RNA (PCR) log 01/10/19 01/10/19 01/10/19 04:44 07:34 10:36 WBC RBC Hgb Hct MCHC Lymph % (Auto) [place] % (Auto) Lymph # [place] # Seg Neutrophils % Seg Neuts % (Manual) Lymphocytes % (Manual) Seg Neutrophils # Seg Neutrophils # Man Lymphocytes # (Manual) POC ABG pH POC ABG pO2 VBG pH Sodium 125 L D Potassium Chloride 91.9 L Carbon Dioxide 16 L BUN 26 H Creatinine Glucose 168 H POC Glucose 143 H Calcium NT-Pro-B Natriuret Pep Albumin TSH 0.118 L HIV-1 RNA PCR copies/ml HIV-1 RNA (PCR) log 01/10/19 01/10/19 01/10/19 11:22 15:15 17:28 WBC RBC Hgb Hct MCHC Lymph % (Auto) [place] % (Auto) Lymph # [place] # Seg Neutrophils % Seg Neuts % (Manual) Lymphocytes % (Manual) Seg Neutrophils # Seg Neutrophils # Man Lymphocytes # (Manual) POC ABG pH POC ABG pO2 VBG pH Sodium 120 L Potassium 5.1 H D Chloride 89.6 L Carbon Dioxide 14 L BUN 22 H Creatinine Glucose 171 H POC Glucose 170 H 168 H Calcium NT-Pro-B Natriuret Pep Albumin TSH HIV-1 RNA PCR copies/ml HIV-1 RNA (PCR) log 01/10/19 01/11/19 01/11/19 21:01 04:27 04:27 WBC 13.6 H RBC Hgb Hct 34.6 L MCHC 35 H Lymph % (Auto) [place] % (Auto) Lymph # [place] # Seg Neutrophils % Seg Neuts % (Manual) Lymphocytes % (Manual) Seg Neutrophils # Seg Neutrophils # Man Lymphocytes # (Manual) POC ABG pH POC ABG pO2 VBG pH Sodium 134 L D Potassium Chloride Carbon Dioxide 20 L BUN 21 H Creatinine Glucose 115 H POC Glucose 165 H Calcium NT-Pro-B Natriuret Pep Albumin TSH HIV-1 RNA PCR copies/ml HIV-1 RNA (PCR) log 01/11/19 08:32 WBC RBC Hgb Hct MCHC Lymph % (Auto) [place] % (Auto) Lymph # [place] # Seg Neutrophils % Seg Neuts % (Manual) Lymphocytes % (Manual) Seg Neutrophils # Seg Neutrophils # Man Lymphocytes # (Manual) POC ABG pH POC ABG pO2 VBG pH Sodium Potassium Chloride Carbon Dioxide BUN Creatinine Glucose POC Glucose 106 H Calcium NT-Pro-B Natriuret Pep Albumin TSH HIV-1 RNA PCR copies/ml HIV-1 RNA (PCR) log
[2019-01-11] MEDS: DIFLUCAN PO SCH (09:28)
[2019-01-11] MEDS: MUCINEX ER PO SCH ×2 (09:28→21:44)
[2019-01-11] MEDS: PEPCID PO SCH ×2 (09:28→21:44)
[2019-01-11] MEDS: SENOKOT PO SCH ×2 (09:28→21:44)
[2019-01-11] MEDS: SOLU-Medrol IV SCH (09:29)
[2019-01-11] MEDS: HumuLIN R SUB-Q SCH ×4 (09:29→21:45)
[2019-01-11] MEDS: ROCEPHIN/NS 1 GM/50 ML 1 GM/50 ML BAG IV SCH ×2 (09:29→21:44)
--- NOTE | 2019-01-11 11:05 | Progress Note ---
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 Leukocytosis and tachycardia continuing. Etiology most likely pneumonia.HBC and HCV serology nonreactive. RPR nonreactive. 2) Bilateral pneumonia: likely PJP +/- CAP. Patient with HIV not on ART, likely AIDS. CXR showed patchy left greater than right basilar opacity with left basilar air bronchograms. on O2/5L 3) Oral candidiasis: Improved 4) HIV/AIDS: Recommendations: - continue bactrim DS 2 tab po TID to treat empirically PJP - continue fluconazole 200mg PO qday, D7 of D10 - continue ceftriaxone 1gm every 12 hours- last dose today - follow-up CD4, VL, HIV genotype - needs education about consistent HIV management -discussed with case management and patient. Information will be provided to follow-up with [facility] to start ART therapy [facility] M: [phone] O:[phone] Subjective Date of service: 01/11/19 Interval history: Patient seen and examined. Primary language Slovak. Conversation via interpretation line. states that he is feeling better today. No fever or SOB. Son at bedside. Objective - Exam Narrative Exam: General appearance: Awake. Alert. No acute distress. Eyes: anicteric sclerae, moist conjunctivae; no lid-lag; PERRLA HENT: Atraumatic; oropharynx clear with moist mucous membranes and +mild oral thrush; normal hard and soft palate. Normal external ears. Neck: Trachea midline; supple, no thyromegaly or lymphadenopathy Lungs: fine crackles LLL, 02/5L. CV: ST Abdomen: Soft, diffuse tenderness and pain. Extremities: no edema, cyanosis Skin: Normal temperature, turgor and texture; no rash, ulcers or subcutaneous nodules Psych: Appropriate affect, alert and oriented to person, place and time. Neuro: alert and oriented x 3. Moving all extremities - Constitutional Vitals: Vital Signs Temp Pulse Resp BP Pulse Ox 98.0 F 103 H 14 130/88 92 01/11/19 08:27 01/11/19 08:27 01/11/19 08:27 01/11/19 08:27 01/11/19 08:47 Temperature -Last 24 Hours Temperature 98.0 F Temperature 97.9 F Temperature 98.9 F Temperature 98.3 F Temperature 98.4 F Temperature 97.8 F - Labs CBC & Chem 7: 01/11/19 04:27 01/11/19 04:27 Labs: Abnormal lab results 01/06/19 01/10/19 01/10/19 Range/Units 13:32 10:36 11:22 WBC (4.5-11.0) K/mm3 Hct (35.5-45.6) % MCHC (32-34) % Sodium (137-145) mmol/L Potassium (3.6-5.0) mmol/L Chloride (98-107) mmol/L Carbon Dioxide (22-30) mmol/L BUN (9-20) mg/dL Glucose (75-100) mg/dL POC Glucose 170 H (70-105) TSH 0.118 L (0.270-4.200) mlU/mL HIV-1 RNA PCR copies/ml [id number] H Copies/mL HIV-1 RNA (PCR) log 6.24 H Log cps/mL 01/10/19 01/10/19 01/10/19 Range/Units 15:15 17:28 21:01 WBC (4.5-11.0) K/mm3 Hct (35.5-45.6) % MCHC (32-34) % Sodium 120 L (137-145) mmol/L Potassium 5.1 H D (3.6-5.0) mmol/L Chloride 89.6 L (98-107) mmol/L Carbon Dioxide 14 L (22-30) mmol/L BUN 22 H (9-20) mg/dL Glucose 171 H (75-100) mg/dL POC Glucose 168 H 165 H (70-105) TSH (0.270-4.200) mlU/mL HIV-1 RNA PCR copies/ml Copies/mL HIV-1 RNA (PCR) log Log cps/mL 01/11/19 01/11/19 01/11/19 Range/Units 04:27 04:27 08:32 WBC 13.6 H (4.5-11.0) K/mm3 Hct 34.6 L (35.5-45.6) % MCHC 35 H (32-34) % Sodium 134 L D (137-145) mmol/L Potassium (3.6-5.0) mmol/L Chloride (98-107) mmol/L Carbon Dioxide 20 L (22-30) mmol/L BUN 21 H (9-20) mg/dL Glucose 115 H (75-100) mg/dL POC Glucose 106 H (70-105) TSH (0.270-4.200) mlU/mL HIV-1 RNA PCR copies/ml Copies/mL HIV-1 RNA (PCR) log Log cps/mL
--- NOTE | 2019-01-11 13:37 | Progress Note ---
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 Acute hypoxic respiratory failure due to pneumonia - monitor patient - Will provide scheduled nebulizer breathing treatment and as needed - follow sputum culture, chest x-ray showed bilateral pneumonia - Provide supplemental oxygen to keep oxygen saturation above 92% - Now on Nc at 5l/min with Oxygen sat of 92% B/L PNA with sepsis - Obtained blood culture, sputum culture - ID consulted, cont iv abx per ID recommendation h/o HIV dx on Jun 2015, not on ARV since then - ID Physician following follow-up CD4, VL, HIV genotype, cryptococcal serum antigen, HBV and HCV serology, RPR Hyponatremia, Consult Nephrology Noncompliance, counseled Oral candidiasis, started fluconazole DVT prophylaxis, Lovenox History Interval history: Shortness of breath No fever Hospitalist Physical - Physical exam Narrative exam: Gen: Not in acute distress, lying in bed, On Oxygen by NC at 5l/min HEENT: Normocephalic, atraumatic Neck: supple, no JVD Heart: S1 and S2 reg, no murmurs, rubs or gallop Lungs: Crackles left base, no wheeze Abd: soft, non tender, non distended, normal BS Ext: No edema, no clubbing, no cyanosis, Neuro: Awake,alert, moves all ext, non focal Psych:Normal mood - Constitutional Vitals: Temp Pulse Resp BP Pulse Ox 98.0 F 100 H 18 130/88 92 01/11/19 08:27 01/11/19 13:10 01/11/19 13:10 01/11/19 08:27 01/11/19 08:47 Results - Labs CBC & Chem 7: 01/11/19 04:27 01/11/19 04:27 Labs: Laboratory Last Values WBC 13.6 K/mm3 (4.5-11.0) H 01/11/19 04:27 RBC 3.95 M/mm3 (3.65-5.03) 01/11/19 04:27 Hgb 12.0 gm/dl (11.8-15.2) 01/11/19 04:27 Hct 34.6 % (35.5-45.6) L 01/11/19 04:27 MCV 87 fl (84-94) 01/11/19 04:27 MCH 30 pg (28-32) 01/11/19 04:27 MCHC 35 % (32-34) H 01/11/19 04:27 RDW 13.7 % (13.2-15.2) 01/11/19 04:27 Plt Count 411 K/mm3 (140-440) 01/11/19 04:27 Lymph % (Auto) 2.7 % (13.4-35.0) L 01/06/19 06:56 [place] % (Auto) 8.0 % (0.0-7.3) H 01/06/19 06:56 Eos % (Auto) 2.3 % (0.0-4.3) 01/06/19 06:56 Baso % (Auto) 0.3 % (0.0-1.8) 01/06/19 06:56 Lymph # 0.3 K/mm3 (1.2-5.4) L 01/06/19 06:56 [place] # 0.9 K/mm3 (0.0-0.8) H 01/06/19 06:56 Eos # 0.3 K/mm3 (0.0-0.4) 01/06/19 06:56 Baso # 0.0 K/mm3 (0.0-0.1) 01/06/19 06:56 Add Manual Diff Complete 01/10/19 00:18 Total Counted 100 01/10/19 00:18 Seg Neutrophils % [place] 01/10/19 00:18 Seg Neuts % (Manual) 96.0 % (40.0-70.0) H 01/10/19 00:18 0 % 01/10/19 00:18 2.0 % (13.4-35.0) L 01/10/19 00:18 Reactive Lymphs % (Man) 0 % 01/10/19 00:18 2.0 % (0.0-7.3) 01/10/19 00:18 0 % (0.0-4.3) 01/10/19 00:18 0 % (0.0-1.8) 01/10/19 00:18 0 % 01/10/19 00:18 0 % 01/10/19 00:18 0 % 01/10/19 00:18 0 % 01/10/19 00:18 Nucleated RBC % Not Reportable 01/10/19 00:18 Seg Neutrophils # 9.7 K/mm3 (1.8-7.7) H 01/06/19 06:56 Seg Neutrophils # Man 13.2 K/mm3 (1.8-7.7) H 01/10/19 00:18 Band Neutrophils # 0.0 K/mm3 01/10/19 00:18 0.3 K/mm3 (1.2-5.4) L 01/10/19 00:18 Abs React Lymphs (Man) 0.0 K/mm3 01/10/19 00:18 0.3 K/mm3 (0.0-0.8) 01/10/19 00:18 0.0 K/mm3 (0.0-0.4) 01/10/19 00:18 0.0 K/mm3 (0.0-0.1) 01/10/19 00:18 0.0 K/mm3 01/10/19 00:18 0.0 K/mm3 01/10/19 00:18 0.0 K/mm3 01/10/19 00:18 Blast Cells # 0.0 K/mm3 01/10/19 00:18 WBC Morphology Not Reportable 01/10/19 00:18 Hypersegmented Neuts Not Reportable 01/10/19 00:18 Hyposegmented Neuts Not Reportable 01/10/19 00:18 Hypogranular Neuts Not Reportable 01/10/19 00:18 Not Reportable 01/10/19 00:18 Not Reportable 01/10/19 00:18 Not Reportable 01/10/19 00:18 Not Reportable 01/10/19 00:18 Not Reportable 01/10/19 00:18 Not Reportable 01/10/19 00:18 Consistent w auto 01/10/19 00:18 Not Reportable 01/10/19 00:18 Plt Clumps, EDTA Not Reportable 01/10/19 00:18 Not Reportable 01/10/19 00:18 Not Reportable 01/10/19 00:18 Not Reportable 01/10/19 00:18 Plt Morphology Comment Not Reportable 01/10/19 00:18 RBC Morphology Normal 01/10/19 00:18 Dimorphic RBCs Not Reportable 01/10/19 00:18 Not Reportable 01/10/19 00:18 Not Reportable 01/10/19 00:18 Not Reportable 01/10/19 00:18 Not Reportable 01/10/19 00:18 Not Reportable 01/10/19 00:18 Not Reportable 01/10/19 00:18 Not Reportable 01/10/19 00:18 Not Reportable 01/10/19 00:18 Not Reportable 01/10/19 00:18 Not Reportable 01/10/19 00:18 Not Reportable 01/10/19 00:18 Not Reportable 01/10/19 00:18 Not Reportable 01/10/19 00:18 Not Reportable 01/10/19 00:18 Not Reportable 01/10/19 00:18 Not Reportable 01/10/19 00:18 Not Reportable 01/10/19 00:18 Not Reportable 01/10/19 00:18 Not Reportable 01/10/19 00:18 Acanthocytes (Spur) Not Reportable 01/10/19 00:18 Rouleaux Not Reportable 01/10/19 00:18 Not Reportable 01/10/19 00:18 Not Reportable 01/10/19 00:18 Not Reportable 01/10/19 00:18 Not Reportable 01/10/19 00:18 Hem Pathologist Commnt No 01/10/19 00:18 PT 13.9 Sec. (12.2-14.9) 01/06/19 06:56 INR 1.10 (0.87-1.13) 01/06/19 06:56 APTT 34.9 Sec. (24.2-36.6) 01/06/19 06:56 POC ABG pH 7.415 (7.35-7.45) 01/08/19 17:36 POC ABG pO2 61 (80-105) L 01/08/19 17:36 POC ABG HCO3 15.0 (22-26 mml/L) 01/08/19 17:36 POC ABG Total CO2 16 (23-27mmol/L) 01/08/19 17:36 POC ABG O2 Sat 92 01/08/19 17:36 POC ABG Base Excess -10 ((-2) - (+3)mmol/L) 01/08/19 17:36 VBG pH 7.459 (7.320-7.420) H 01/06/19 06:56 40 % 01/08/19 17:36 Sodium 134 mmol/L (137-145) L D 01/11/19 04:27 Potassium 4.7 mmol/L (3.6-5.0) 01/11/19 04:27 Chloride 100.3 mmol/L (98-107) 01/11/19 04:27 Carbon Dioxide 20 mmol/L (22-30) L 01/11/19 04:27 18 mmol/L 01/11/19 04:27 BUN 21 mg/dL (9-20) H 01/11/19 04:27 1.1 mg/dL (0.8-1.5) 01/11/19 04:27 Estimated GFR > 60 ml/min 01/11/19 04:27 19 % 01/11/19 04:27 Glucose 115 mg/dL (75-100) H 01/11/19 04:27 POC Glucose 188 (70-105) H 01/11/19 11:33 275 Mosm/kg 01/10/19 10:36 Lactic Acid 1.10 mmol/L (0.7-2.0) 01/06/19 09:43 Calcium 9.4 mg/dL (8.4-10.2) 01/11/19 04:27 0.40 mg/dL (0.1-1.2) 01/06/19 06:56 < 0.2 mg/dL (0-0.2) 01/06/19 06:56 AST 27 units/L (5-40) 01/06/19 06:56 ALT 14 units/L (7-56) 01/06/19 06:56 65 units/L (35-129) 01/06/19 06:56 < 0.010 ng/mL (0.00-0.029) 01/06/19 12:15 NT-Pro-B Natriuret Pep 1357 pg/mL (0-900) H 01/08/19 06:50 7.2 g/dL (6.3-8.2) 01/06/19 06:56 2.4 g/dL (3.9-5) L 01/06/19 06:56 0.5 % 01/06/19 06:56 TSH 0.118 mlU/mL (0.270-4.200) L 01/10/19 10:36 Free T4 1.39 ng/dL (0.76-1.46) 01/10/19 21:44 Yellow (Yellow) 01/10/19 Unknown Cloudy (Clear) 01/10/19 Unknown 7.0 (5.0-7.0) 01/10/19 Unknown Ur Specific [facility] 1.016 (1.003-1.030) 01/10/19 Unknown <15 mg/dl mg/dL (Negative) 01/10/19 Unknown Neg mg/dL (Negative) 01/10/19 Unknown Neg mg/dL (Negative) 01/10/19 Unknown Neg (Negative) 01/10/19 Unknown Neg (Negative) 01/10/19 Unknown Neg (Negative) 01/10/19 Unknown < 2.0 mg/dL (<2.0) 01/10/19 Unknown Ur Leukocyte Esterase Neg (Negative) 01/10/19 Unknown 4.0 /HPF (0.0-6.0) 01/10/19 Unknown 1.0 /HPF (0.0-6.0) 01/10/19 Unknown 1+ /HPF (Negative) 01/10/19 Unknown Few /HPF 01/06/19 08:09 RPR Nonreactive (Nonreactive) 01/06/19 13:32 Hepatitis A IgM Ab Non-reactive (NonReactive) 01/06/19 13:32 Hep Bs Antigen Non-reactive (Negative) 01/06/19 13:32 Hep B Core IgM Ab Non-reactive (NonReactive) 01/06/19 13:32 Non-reactive (NonReactive) 01/06/19 13:32 HIV-1 RNA PCR copies/ml [id number] Copies/mL H 01/06/19 13:32 6.24 Log cps/mL H 01/06/19 13:32 Active Medications - Current Medications Current Medications: Generic Name Dose Route Start Last Admin Trade Name Freq PRN Reason Stop Dose Admin Acetaminophen 650 mg 01/06/19 10:07 Tylenol PO Q4H PRN Pain MILD(1-3)/Fever >100.5/BOOTHE Acetaminophen/Hydrocodone Bitart 2 each 01/06/19 10:07 01/11/19 06:14 Mongo 5/325 PO 2 each Q6H PRN Administration Pain, Moderate (4-6) Albuterol/Ipratropium 1 ampul 01/06/19 11:00 01/11/19 13:09 Duoneb *Not For Prn Use* IH 1 ampul Q6HRT DIOGENES Administration Enoxaparin Sodium 40 mg 01/06/19 22:00 01/10/19 21:22 Lovenox SUB-Q 40 mg QDAY@2200 DIOGENES Administration Famotidine 10 mg 01/06/19 22:00 01/11/19 09:28 Pepcid PO 10 mg BID DIOGENES Administration Fluconazole 200 mg 01/06/19 14:00 01/11/19 09:28 Diflucan PO 200 mg QDAY DIOGENES Administration Guaifenesin 1,200 mg 01/07/19 10:00 01/11/19 09:28 Mucinex Er PO 1,200 mg BID DIOGENES Administration Hydralazine HCl 5 mg 01/06/19 10:07 Apresoline IV Q30MIN PRN Hypertension Ceftriaxone Sodium 1 gm in 50 mls @ 100 mls/hr 01/06/19 22:00 01/11/19 09:29 Rocephin/Ns 1 Gm/50 Ml IV 100 mls/hr Q12HR DIOGENES Administration Protocol Insulin Human Regular 0 units 01/09/19 22:00 01/11/19 09:29 Humulin R SUB-Q Not Given ACHS [facility] Protocol Methylprednisolone Sodium Succinate 40 mg 01/08/19 13:00 01/11/19 09:29 Solu-Medrol IV 40 mg Q24HR DIOGENES Administration Ondansetron HCl 4 mg 01/06/19 10:07 01/11/19 06:14 Zofran IV 4 mg Q8H PRN Administration N/V unrelieved by James Noe 8.6 mg 01/06/19 22:00 01/11/19 09:28 Senokot PO 8.6 mg Q12HR DIOGENES Administration Trimethoprim/Sulfamethoxazole 2 each 01/06/19 14:00 01/11/19 06:14 Bactrim Ds PO 2 each Q8HR DIOGENES Administration Nutrition/Malnutrition Assess - Dietary Evaluation Nutrition/Malnutrition Findings: Nutrition Notes Start: 01/07/19 12 :44 Freq: Status: Active Protocol: Document 01/10/19 09:47 LP (Rec: 01/10/19 09:51 LP [id number]) Nutrition Notes Initial or Follow up Reassessment Other Pertinent Diagnosis Abdominal pain, Bilat pneu, HIV, Hyponatremia Current Diet Regular with Ensure Enlive chocolate TID Labs/Tests Na 125 BUN 26 BG 168 Pertinent Medications Reviewed Height 5 ft 6 in Weight 59.5 kg [place] Body Weight (kg) 64.54 BMI 21.2 Subjective/Other Information Pt states not eating anything. Pt states abdominal pain and vomiting. Pt should have GI on case to see what is going on with abdomen. Percent of energy/protein needs met: 0%/0% Burn Absent Trauma Absent #2 Nutrition Diagnosis Inadequate oral intake Etiology abdominal pain and vomiting As Evidenced by Signs and Symptoms Pt consuming 0% of meals and supplements #1 Nutrition Diagnosis Predicted suboptimal energy intake As Evidenced by Signs and Symptoms Not eating anything Diagnosis Progress(for reassessment Resolved documentation) Is patient on ventilator? No Is Patient Ambulatory and/or Out of Bed Yes REE-([place]-St. Jeor-ambulatory/OOB) [ 1791.075 [id number]] Calculation Used for Recommendations [place]-St Jeor Additional Notes Pro needs 1-1.2g/k-77g/ day Fluid needs 1ml/kcal Nutrition Intervention Change Diet Order: Continue Add Supplement/Snack (indicate name/kcal D/C /protein ) Goal #1 PO intake of meals plus ONS to meet at least 75% energy and pro needs Goal #2 GI testing Anticipated Discharge Needs: Unable to determine at this time Follow-Up By: 01/12/19 Additional Comments Follow for GI notes, intakes?
[2019-01-11] MEDS ORDERED: DUONEB *Not for PRN Use IH (21:19)
--- NOTE | 2019-01-11 21:23 | Progress Note ---
Assessment and Plan Impression: * Hyponatremia - improved * Acute hypoxic respiratory failure secondary to infectious process vs pulmonary edema * HIV * Hyperkalemia - resolved Plan: * Patient is s/p Samsca 15mg x 1 dose yesterday- Na 134 today. Hold additional doses * TTE reviewed - LVEF 50-55%, nml diastolic function as well * Continue to hold diuretics - I do not suspect that hypoxia is related to pulmonary edema * Hopefully patient will be able to tolerate bronch in near future - pulmonary following * Urine lytes/osm ordere but not collected * Strict I/O Subjective Date of service: 01/11/19 Interval history: No acute events overnight. Objective - Vital Signs Vital signs: Vital Signs - 12hr 01/11/19 01/11/19 01/11/19 13:10 13:25 17:13 Temperature Pulse Rate 101 H Pulse Rate [ Apical] Pulse Rate [ 100 H 100 H Bilateral] Respiratory Rate Respiratory 18 18 Rate [Bilateral ] Blood Pressure 140/94 O2 Sat by Pulse 95 Oximetry 01/11/19 01/11/19 01/11/19 19:46 20:00 20:31 Temperature 98.4 F Pulse Rate 100 H Pulse Rate [ 115 H Apical] Pulse Rate [ 95 H Bilateral] Respiratory 18 20 Rate Respiratory 16 Rate [Bilateral ] Blood Pressure 138/94 O2 Sat by Pulse 95 96 Oximetry 01/11/19 01/11/19 01/11/19 20:37 20:44 20:45 Temperature Pulse Rate Pulse Rate [ Apical] Pulse Rate [ 95 H 94 H Bilateral] Respiratory Rate Respiratory 16 16 Rate [Bilateral ] Blood Pressure O2 Sat by Pulse 95 Oximetry - General Appearance General appearance: well-developed, well-nourished EENT: ATNC Respiratory: Present: Decreased Breath Sounds Cardiology: regular, S1S2 Gastrointestinal: no tenderness, no distended Integumentary: no rash, warm and dry Musculoskeletal: other (no edema) Psychiatric: cooperative - Lab 01/11/19 04:27 01/11/19 04:27 Most recent lab results Calcium 9.4 mg/dL (8.4-10.2) 01/11/19 04:27 Medications & Allergies - Medications Allergies/Adverse Reactions: Allergies No Known Allergies Allergy (Verified 09/24/15 12:37) Home Medications: Home Medications Medication Instructions Recorded Confirmed Last Taken Type Acetaminophen [Acetaminophen TAB] 650 mg PO Q4H PRN #30 tablet 09/30/15 01/07/19 Unknown Rx Sulfamethoxazole/Trimethoprim 1 each PO DAILY #30 tablet 09/30/15 01/07/19 Unknown Rx [Bactrim DS TAB] Warfarin [Coumadin] 5 mg PO QHS #30 tablet 10/01/15 01/07/19 Unknown Rx Active Medications: Generic Name Dose Route Start Last Admin Trade Name Freq PRN Reason Stop Dose Admin Acetaminophen 650 mg 01/06/19 10:07 Tylenol PO Q4H PRN Pain MILD(1-3)/Fever >100.5/BOOTHE Acetaminophen/Hydrocodone Bitart 2 each 01/06/19 10:07 01/11/19 06:14 [place] 5/325 PO 2 each Q6H PRN Administration Pain, Moderate (4-6) Albuterol/Ipratropium 1 ampul 01/11/19 21:19 Duoneb *Not For Prn Use* IH Q8HRT PRN Shortness Of Breath Enoxaparin Sodium 40 mg 01/06/19 22:00 01/10/19 21:22 Lovenox SUB-Q 40 mg QDAY@2200 DIOGENES Administration Famotidine 10 mg 01/06/19 22:00 01/11/19 09:28 Pepcid PO 10 mg BID DIOGENES Administration Fluconazole 200 mg 01/06/19 14:00 01/11/19 09:28 Diflucan PO 200 mg QDAY DIOGENES Administration Guaifenesin 1,200 mg 01/07/19 10:00 01/11/19 09:28 Mucinex Er PO 1,200 mg BID DIOGENES Administration Hydralazine HCl 5 mg 01/06/19 10:07 Apresoline IV Q30MIN PRN Hypertension Ceftriaxone Sodium 1 gm in 50 mls @ 100 mls/hr 01/06/19 22:00 01/11/19 09:29 Rocephin/Ns 1 Gm/50 Ml IV 100 mls/hr Q12HR DIOGENES Administration Protocol Insulin Human Regular 0 units 01/09/19 22:00 01/11/19 17:44 Humulin R SUB-Q 1 units ACHS IDOGENES Administration Protocol Methylprednisolone Sodium Succinate 40 mg 01/08/19 13:00 01/11/19 09:29 Solu-Medrol IV 40 mg Q24HR DIOGENES Administration Ondansetron HCl 4 mg 01/06/19 10:07 01/11/19 06:14 Zofran IV 4 mg Q8H PRN Administration N/V unrelieved by James Noe 8.6 mg 01/06/19 22:00 01/11/19 09:28 Senokot PO 8.6 mg Q12HR DIOGENES Administration Trimethoprim/Sulfamethoxazole 2 each 01/06/19 14:00 01/11/19 15:09 Bactrim Ds PO 2 each Q8HR DIOGENES Administration
[2019-01-11] MEDS: LOVENOX SUB-Q SCH (21:43)
[2019-01-11] MEDS ORDERED: PROVENTIL IH PRN (23:55)
[2019-01-12] MEDS ORDERED: PROVENTIL IH PRN (01:23)
[2019-01-12] MEDS: NORCO 5/325 PO PRN (05:34)
[2019-01-12] MEDS: BACTRIM DS PO SCH ×3 (05:34→22:50)
[2019-01-12] MEDS: ZOFRAN IV PRN (05:34)
[2019-01-12 05:49] LABS: Hematocrit 34.6 % (35.5-45.6); Hemoglobin 11.7 gm/dl (11.8-15.2); Mean Corpuscular HGB Conc 34 % (32-34); Mean Corpuscular Volume 89 fl (84-94); Platelet Count 383 K/mm3 (140-440); Red Blood Count 3.89 M/mm3 (3.65-5.03); Red Cell Distribution Width 13.7 % (13.2-15.2)
[2019-01-12 06:16] LABS: BUN/Creatinine Ratio 23; Blood Urea Nitrogen 23 mg/dL (9-20); Calcium 9.1 mg/dL (8.4-10.2); Hemolysis Index 6
[2019-01-12] MEDS: HumuLIN R SUB-Q SCH ×4 (08:30→22:36)
[2019-01-12] MEDS: PEPCID PO SCH ×2 (09:30→22:48)
[2019-01-12] MEDS: MUCINEX ER PO SCH ×2 (09:30→22:48)
[2019-01-12] MEDS: DIFLUCAN PO SCH (09:30)
[2019-01-12] MEDS: SOLU-Medrol IV SCH (09:31)
[2019-01-12] MEDS: SENOKOT PO SCH ×2 (09:31→22:49)
[2019-01-12] MEDS: ROCEPHIN/NS 1 GM/50 ML 1 GM/50 ML BAG IV SCH ×2 (09:31→22:49)
[2019-01-12] MEDS ORDERED: LASIX IV ONE (09:33)
--- NOTE | 2019-01-12 09:33 | Progress Note ---
Assessment and Plan 53 y/o with acute respiratory failure, initially thought secondary to pneumonia, now worsening, most likely secondary to volume overload. 1. lasix 40mg IV again today. 2. No evidence of pulmonary htn on echo 3. Wean FiO2 for sats 88% 4. Abx therapy per ID. Agree with current dose of steroid for PJP treatment. 5. Needs better BP control Subjective Date of service: 01/12/19 Interval history: No acute events. Sats on 5 liters are documented at 98 this am. Objective Vital Signs - 12hr 01/11/19 01/11/19 01/12/19 22:00 23:27 03:35 Temperature 98.3 F 97.3 F L Pulse Rate 101 H 99 H 97 H Respiratory 20 18 Rate Blood Pressure 144/96 150/92 O2 Sat by Pulse 97 94 Oximetry 01/12/19 01/12/19 01/12/19 05:34 07:57 08:56 Temperature 98.3 F Pulse Rate 91 H Respiratory 20 14 Rate Blood Pressure 137/94 O2 Sat by Pulse 98 98 Oximetry Constitutional: alert, appears uncomfortable Eyes: non-icteric ENT: oropharynx moist Neck: supple, no JVD Effort: very labored Ascultation: Bilateral: rales Percussion: Bilateral: not dull Cardiovascular: regular rate and rhythm (sinus tach) Gastrointestinal: normoactive bowel sounds, soft, non-tender Neurologic: normal mental status, non-focal exam CBC and BMP: 01/12/19 04:23 01/12/19 04:23 ABG, PT/INR, D-dimer: ABG POC ABG pH 7.415 (7.35-7.45) 01/08/19 17:36 POC ABG pO2 61 (80-105) L 01/08/19 17:36 POC ABG HCO3 15.0 (22-26 mml/L) 01/08/19 17:36 POC ABG Total CO2 16 (23-27mmol/L) 01/08/19 17:36 POC ABG O2 Sat 92 01/08/19 17:36 PT/INR, D-dimer PT 13.9 Sec. (12.2-14.9) 01/06/19 06:56 INR 1.10 (0.87-1.13) 01/06/19 06:56 Abnormal lab findings: Abnormal Labs 01/06/19 01/06/19 01/06/19 06:56 06:56 06:56 WBC 11.2 H RBC 3.50 L Hgb 10.5 L Hct 30.8 L MCHC Lymph % (Auto) 2.7 L [place] % (Auto) 8.0 H Lymph # 0.3 L [place] # 0.9 H Seg Neutrophils % 86.7 H Seg Neuts % (Manual) Lymphocytes % (Manual) Seg Neutrophils # 9.7 H Seg Neutrophils # Man Lymphocytes # (Manual) POC ABG pH POC ABG pO2 VBG pH 7.459 H Sodium 130 L Potassium Chloride Carbon Dioxide 18 L BUN Creatinine 0.7 L Glucose 119 H POC Glucose Calcium 8.1 L NT-Pro-B Natriuret Pep Albumin 2.4 L TSH HIV-1 RNA PCR copies/ml HIV-1 RNA (PCR) log 01/06/19 01/06/19 01/07/19 06:59 13:32 08:39 WBC RBC Hgb Hct MCHC Lymph % (Auto) [place] % (Auto) Lymph # [place] # Seg Neutrophils % Seg Neuts % (Manual) Lymphocytes % (Manual) Seg Neutrophils # Seg Neutrophils # Man Lymphocytes # (Manual) POC ABG pH 7.474 H POC ABG pO2 58 L VBG pH Sodium Potassium Chloride Carbon Dioxide BUN Creatinine Glucose POC Glucose 132 H Calcium NT-Pro-B Natriuret Pep Albumin TSH HIV-1 RNA PCR copies/ml [id number] H HIV-1 RNA (PCR) log 6.24 H 01/07/19 01/07/19 01/08/19 11:17 16:12 06:50 WBC 19.2 H RBC Hgb 11.2 L Hct 33.1 L MCHC Lymph % (Auto) [place] % (Auto) Lymph # [place] # Seg Neutrophils % Seg Neuts % (Manual) 98.0 H Lymphocytes % (Manual) 1.0 L Seg Neutrophils # Seg Neutrophils # Man 18.8 H Lymphocytes # (Manual) 0.2 L POC ABG pH POC ABG pO2 VBG pH Sodium Potassium Chloride Carbon Dioxide BUN Creatinine Glucose POC Glucose 219 H 148 H Calcium NT-Pro-B Natriuret Pep Albumin TSH HIV-1 RNA PCR copies/ml HIV-1 RNA (PCR) log 01/08/19 01/08/19 01/08/19 06:50 06:50 17:36 WBC RBC Hgb Hct MCHC Lymph % (Auto) [place] % (Auto) Lymph # [place] # Seg Neutrophils % Seg Neuts % (Manual) Lymphocytes % (Manual) Seg Neutrophils # Seg Neutrophils # Man Lymphocytes # (Manual) POC ABG pH POC ABG pO2 61 L VBG pH Sodium 134 L Potassium Chloride Carbon Dioxide 15 L BUN Creatinine Glucose POC Glucose Calcium 7.8 L NT-Pro-B Natriuret Pep 1357 H Albumin TSH HIV-1 RNA PCR copies/ml HIV-1 RNA (PCR) log 01/08/19 01/09/19 01/09/19 21:34 07:34 12:03 WBC RBC Hgb Hct MCHC Lymph % (Auto) [place] % (Auto) Lymph # [place] # Seg Neutrophils % Seg Neuts % (Manual) Lymphocytes % (Manual) Seg Neutrophils # Seg Neutrophils # Man Lymphocytes # (Manual) POC ABG pH POC ABG pO2 VBG pH Sodium Potassium Chloride Carbon Dioxide BUN Creatinine Glucose POC Glucose 208 H 168 H 176 H Calcium NT-Pro-B Natriuret Pep Albumin TSH HIV-1 RNA PCR copies/ml HIV-1 RNA (PCR) log 01/09/19 01/09/19 01/10/19 16:08 20:58 00:18 WBC 13.8 H RBC Hgb 11.6 L Hct 34.7 L MCHC Lymph % (Auto) [place] % (Auto) Lymph # [place] # Seg Neutrophils % Seg Neuts % (Manual) 96.0 H Lymphocytes % (Manual) 2.0 L Seg Neutrophils # Seg Neutrophils # Man 13.2 H Lymphocytes # (Manual) 0.3 L POC ABG pH POC ABG pO2 VBG pH Sodium Potassium Chloride Carbon Dioxide BUN Creatinine Glucose POC Glucose 232 H 174 H Calcium NT-Pro-B Natriuret Pep Albumin TSH HIV-1 RNA PCR copies/ml HIV-1 RNA (PCR) log 01/10/19 01/10/19 01/10/19 04:44 07:34 10:36 WBC RBC Hgb Hct MCHC Lymph % (Auto) [place] % (Auto) Lymph # [place] # Seg Neutrophils % Seg Neuts % (Manual) Lymphocytes % (Manual) Seg Neutrophils # Seg Neutrophils # Man Lymphocytes # (Manual) POC ABG pH POC ABG pO2 VBG pH Sodium 125 L D Potassium Chloride 91.9 L Carbon Dioxide 16 L BUN 26 H Creatinine Glucose 168 H POC Glucose 143 H Calcium NT-Pro-B Natriuret Pep Albumin TSH 0.118 L HIV-1 RNA PCR copies/ml HIV-1 RNA (PCR) log 01/10/19 01/10/19 01/10/19 11:22 15:15 17:28 WBC RBC Hgb Hct MCHC Lymph % (Auto) [place] % (Auto) Lymph # [place] # Seg Neutrophils % Seg Neuts % (Manual) Lymphocytes % (Manual) Seg Neutrophils # Seg Neutrophils # Man Lymphocytes # (Manual) POC ABG pH POC ABG pO2 VBG pH Sodium 120 L Potassium 5.1 H D Chloride 89.6 L Carbon Dioxide 14 L BUN 22 H Creatinine Glucose 171 H POC Glucose 170 H 168 H Calcium NT-Pro-B Natriuret Pep Albumin TSH HIV-1 RNA PCR copies/ml HIV-1 RNA (PCR) log 01/10/19 01/11/19 01/11/19 21:01 04:27 04:27 WBC 13.6 H RBC Hgb Hct 34.6 L MCHC 35 H Lymph % (Auto) [place] % (Auto) Lymph # [place] # Seg Neutrophils % Seg Neuts % (Manual) Lymphocytes % (Manual) Seg Neutrophils # Seg Neutrophils # Man Lymphocytes # (Manual) POC ABG pH POC ABG pO2 VBG pH Sodium 134 L D Potassium Chloride Carbon Dioxide 20 L BUN 21 H Creatinine Glucose 115 H POC Glucose 165 H Calcium NT-Pro-B Natriuret Pep Albumin TSH HIV-1 RNA PCR copies/ml HIV-1 RNA (PCR) log 01/11/19 01/11/19 01/11/19 08:32 11:33 17:21 WBC RBC Hgb Hct MCHC Lymph % (Auto) [place] % (Auto) Lymph # [place] # Seg Neutrophils % Seg Neuts % (Manual) Lymphocytes % (Manual) Seg Neutrophils # Seg Neutrophils # Man Lymphocytes # (Manual) POC ABG pH POC ABG pO2 VBG pH Sodium Potassium Chloride Carbon Dioxide BUN Creatinine Glucose POC Glucose 106 H 188 H 173 H Calcium NT-Pro-B Natriuret Pep Albumin TSH HIV-1 RNA PCR copies/ml HIV-1 RNA (PCR) log 01/11/19 01/12/19 01/12/19 20:50 04:23 04:23 WBC RBC Hgb 11.7 L Hct 34.6 L MCHC Lymph % (Auto) [place] % (Auto) Lymph # [place] # Seg Neutrophils % Seg Neuts % (Manual) Lymphocytes % (Manual) Seg Neutrophils # Seg Neutrophils # Man Lymphocytes # (Manual) POC ABG pH POC ABG pO2 VBG pH Sodium 130 L Potassium Chloride Carbon Dioxide 17 L BUN 23 H Creatinine Glucose 104 H POC Glucose 124 H Calcium NT-Pro-B Natriuret Pep Albumin TSH HIV-1 RNA PCR copies/ml HIV-1 RNA (PCR) log
--- NOTE | 2019-01-12 10:13 | Progress Note ---
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 Acute hypoxic respiratory failure due to pneumonia - monitor patient - Will provide scheduled nebulizer breathing treatment and as needed - follow sputum culture, chest x-ray showed bilateral pneumonia - Provide supplemental oxygen to keep oxygen saturation above 92% - less shortness of breath - Now on Nc at 5l/min with Oxygen sat of 98% B/L PNA with sepsis - Obtained blood culture, sputum culture - ID consulted, cont iv abx per ID recommendation h/o HIV dx on Jun 2015, not on ARV since then - ID Physician following follow-up CD4, VL, HIV genotype, cryptococcal serum antigen, HBV and HCV serology, RPR -HIV RNA copies/ml 1,720,000 Hyponatremia, Improving after Tolvaptan 15mg po x 1 dose given on 01/10 Na 130 today Consulted Nephrology, following Noncompliance, counseled Oral candidiasis, started on fluconazole DVT prophylaxis, Lovenox History Interval history: Less shortness of breath No fever Hospitalist Physical - Physical exam Narrative exam: Gen: Not in acute distress, lying in bed, On Oxygen by NC at 5l/min HEENT: Normocephalic, atraumatic Neck: supple, no JVD Heart: S1 and S2 reg, no murmurs, rubs or gallop Lungs: Crackles left base, no wheeze Abd: soft, non tender, non distended, normal BS Ext: No edema, no clubbing, no cyanosis, Neuro: Awake,alert, moves all ext, non focal Psych:Normal mood - Constitutional Vitals: Temp Pulse Resp BP Pulse Ox 98.3 F 91 H 14 137/94 98 01/12/19 07:57 01/12/19 07:57 01/12/19 07:57 01/12/19 07:57 01/12/19 08:56 Results - Labs CBC & Chem 7: 01/12/19 04:23 01/12/19 04:23 Labs: Laboratory Last Values WBC 10.0 K/mm3 (4.5-11.0) 01/12/19 04:23 RBC 3.89 M/mm3 (3.65-5.03) 01/12/19 04:23 Hgb 11.7 gm/dl (11.8-15.2) L 01/12/19 04:23 Hct 34.6 % (35.5-45.6) L 01/12/19 04:23 MCV 89 fl (84-94) 01/12/19 04:23 MCH 30 pg (28-32) 01/12/19 04:23 MCHC 34 % (32-34) 01/12/19 04:23 RDW 13.7 % (13.2-15.2) 01/12/19 04:23 Plt Count 383 K/mm3 (140-440) 01/12/19 04:23 Lymph % (Auto) 2.7 % (13.4-35.0) L 01/06/19 06:56 [place] % (Auto) 8.0 % (0.0-7.3) H 01/06/19 06:56 Eos % (Auto) 2.3 % (0.0-4.3) 01/06/19 06:56 Baso % (Auto) 0.3 % (0.0-1.8) 01/06/19 06:56 Lymph # 0.3 K/mm3 (1.2-5.4) L 01/06/19 06:56 [place] # 0.9 K/mm3 (0.0-0.8) H 01/06/19 06:56 Eos # 0.3 K/mm3 (0.0-0.4) 01/06/19 06:56 Baso # 0.0 K/mm3 (0.0-0.1) 01/06/19 06:56 Add Manual Diff Complete 01/10/19 00:18 Total Counted 100 01/10/19 00:18 Seg Neutrophils % Hazmat Technician 01/10/19 00:18 Seg Neuts % (Manual) 96.0 % (40.0-70.0) H 01/10/19 00:18 0 % 01/10/19 00:18 2.0 % (13.4-35.0) L 01/10/19 00:18 Reactive Lymphs % (Man) 0 % 01/10/19 00:18 2.0 % (0.0-7.3) 01/10/19 00:18 0 % (0.0-4.3) 01/10/19 00:18 0 % (0.0-1.8) 01/10/19 00:18 0 % 01/10/19 00:18 0 % 01/10/19 00:18 0 % 01/10/19 00:18 0 % 01/10/19 00:18 Nucleated RBC % Not Reportable 01/10/19 00:18 Seg Neutrophils # 9.7 K/mm3 (1.8-7.7) H 01/06/19 06:56 Seg Neutrophils # Man 13.2 K/mm3 (1.8-7.7) H 01/10/19 00:18 Band Neutrophils # 0.0 K/mm3 01/10/19 00:18 0.3 K/mm3 (1.2-5.4) L 01/10/19 00:18 Abs React Lymphs (Man) 0.0 K/mm3 01/10/19 00:18 0.3 K/mm3 (0.0-0.8) 01/10/19 00:18 0.0 K/mm3 (0.0-0.4) 01/10/19 00:18 0.0 K/mm3 (0.0-0.1) 01/10/19 00:18 0.0 K/mm3 01/10/19 00:18 0.0 K/mm3 01/10/19 00:18 0.0 K/mm3 01/10/19 00:18 Blast Cells # 0.0 K/mm3 01/10/19 00:18 WBC Morphology Not Reportable 01/10/19 00:18 Hypersegmented Neuts Not Reportable 01/10/19 00:18 Hyposegmented Neuts Not Reportable 01/10/19 00:18 Hypogranular Neuts Not Reportable 01/10/19 00:18 Not Reportable 01/10/19 00:18 Not Reportable 01/10/19 00:18 Not Reportable 01/10/19 00:18 Not Reportable 01/10/19 00:18 Not Reportable 01/10/19 00:18 Not Reportable 01/10/19 00:18 Consistent w auto 01/10/19 00:18 Not Reportable 01/10/19 00:18 Plt Clumps, EDTA Not Reportable 01/10/19 00:18 Not Reportable 01/10/19 00:18 Not Reportable 01/10/19 00:18 Not Reportable 01/10/19 00:18 Plt Morphology Comment Not Reportable 01/10/19 00:18 RBC Morphology Normal 01/10/19 00:18 Dimorphic RBCs Not Reportable 01/10/19 00:18 Not Reportable 01/10/19 00:18 Not Reportable 01/10/19 00:18 Not Reportable 01/10/19 00:18 Not Reportable 01/10/19 00:18 Not Reportable 01/10/19 00:18 Not Reportable 01/10/19 00:18 Not Reportable 01/10/19 00:18 Not Reportable 01/10/19 00:18 Not Reportable 01/10/19 00:18 Not Reportable 01/10/19 00:18 Not Reportable 01/10/19 00:18 Not Reportable 01/10/19 00:18 Not Reportable 01/10/19 00:18 Not Reportable 01/10/19 00:18 Not Reportable 01/10/19 00:18 Not Reportable 01/10/19 00:18 Not Reportable 01/10/19 00:18 Not Reportable 01/10/19 00:18 Not Reportable 01/10/19 00:18 Acanthocytes (Spur) Not Reportable 01/10/19 00:18 Rouleaux Not Reportable 01/10/19 00:18 Not Reportable 01/10/19 00:18 Not Reportable 01/10/19 00:18 Not Reportable 01/10/19 00:18 Not Reportable 01/10/19 00:18 Hem Pathologist Commnt No 01/10/19 00:18 PT 13.9 Sec. (12.2-14.9) 01/06/19 06:56 INR 1.10 (0.87-1.13) 01/06/19 06:56 APTT 34.9 Sec. (24.2-36.6) 01/06/19 06:56 POC ABG pH 7.415 (7.35-7.45) 01/08/19 17:36 POC ABG pO2 61 (80-105) L 01/08/19 17:36 POC ABG HCO3 15.0 (22-26 mml/L) 01/08/19 17:36 POC ABG Total CO2 16 (23-27mmol/L) 01/08/19 17:36 POC ABG O2 Sat 92 01/08/19 17:36 POC ABG Base Excess -10 ((-2) - (+3)mmol/L) 01/08/19 17:36 VBG pH 7.459 (7.320-7.420) H 01/06/19 06:56 40 % 01/08/19 17:36 Sodium 130 mmol/L (137-145) L 01/12/19 04:23 Potassium 4.0 mmol/L (3.6-5.0) 01/12/19 04:23 Chloride 98.3 mmol/L (98-107) 01/12/19 04:23 Carbon Dioxide 17 mmol/L (22-30) L 01/12/19 04:23 19 mmol/L 01/12/19 04:23 BUN 23 mg/dL (9-20) H 01/12/19 04:23 1.0 mg/dL (0.8-1.5) 01/12/19 04:23 Estimated GFR > 60 ml/min 01/12/19 04:23 23 % 01/12/19 04:23 Glucose 104 mg/dL (75-100) H 01/12/19 04:23 POC Glucose 89 (70-105) 01/12/19 08:04 275 Mosm/kg 01/10/19 10:36 Lactic Acid 1.10 mmol/L (0.7-2.0) 01/06/19 09:43 Calcium 9.1 mg/dL (8.4-10.2) 01/12/19 04:23 0.40 mg/dL (0.1-1.2) 01/06/19 06:56 < 0.2 mg/dL (0-0.2) 01/06/19 06:56 AST 27 units/L (5-40) 01/06/19 06:56 ALT 14 units/L (7-56) 01/06/19 06:56 65 units/L (35-129) 01/06/19 06:56 < 0.010 ng/mL (0.00-0.029) 01/06/19 12:15 NT-Pro-B Natriuret Pep 1357 pg/mL (0-900) H 01/08/19 06:50 7.2 g/dL (6.3-8.2) 01/06/19 06:56 2.4 g/dL (3.9-5) L 01/06/19 06:56 0.5 % 01/06/19 06:56 TSH 0.118 mlU/mL (0.270-4.200) L 01/10/19 10:36 Free T4 1.39 ng/dL (0.76-1.46) 01/10/19 21:44 Yellow (Yellow) 01/10/19 Unknown Cloudy (Clear) 01/10/19 Unknown 7.0 (5.0-7.0) 01/10/19 Unknown Ur Specific [place] 1.016 (1.003-1.030) 01/10/19 Unknown <15 mg/dl mg/dL (Negative) 01/10/19 Unknown Neg mg/dL (Negative) 01/10/19 Unknown Neg mg/dL (Negative) 01/10/19 Unknown Neg (Negative) 01/10/19 Unknown Neg (Negative) 01/10/19 Unknown Neg (Negative) 01/10/19 Unknown < 2.0 mg/dL (<2.0) 01/10/19 Unknown Ur Leukocyte Esterase Neg (Negative) 01/10/19 Unknown 4.0 /HPF (0.0-6.0) 01/10/19 Unknown 1.0 /HPF (0.0-6.0) 01/10/19 Unknown 1+ /HPF (Negative) 01/10/19 Unknown Few /HPF 01/06/19 08:09 RPR Nonreactive (Nonreactive) 01/06/19 13:32 Hepatitis A IgM Ab Non-reactive (NonReactive) 01/06/19 13:32 Hep Bs Antigen Non-reactive (Negative) 01/06/19 13:32 Hep B Core IgM Ab Non-reactive (NonReactive) 01/06/19 13:32 Non-reactive (NonReactive) 01/06/19 13:32 HIV-1 RNA PCR copies/ml [id number] Copies/mL H 01/06/19 13:32 6.24 Log cps/mL H 01/06/19 13:32 Active Medications - Current Medications Current Medications: Generic Name Dose Route Start Last Admin Trade Name Freq PRN Reason Stop Dose Admin Acetaminophen 650 mg 01/06/19 10:07 Tylenol PO Q4H PRN Pain MILD(1-3)/Fever >100.5/BOOTHE Acetaminophen/Hydrocodone Bitart 2 each 01/06/19 10:07 01/12/19 05:34 [place] 5/325 PO 2 each Q6H PRN Administration Pain, Moderate (4-6) Albuterol 2.5 mg 01/12/19 01:23 Proventil IH Q3HRT PRN Shortness Of Breath Enoxaparin Sodium 40 mg 01/06/19 22:00 01/11/19 21:43 Lovenox SUB-Q 40 mg QDAY@2200 DIOGENES Administration Famotidine 10 mg 01/06/19 22:00 01/12/19 09:30 Pepcid PO 10 mg BID DIOGENES Administration Fluconazole 200 mg 01/06/19 14:00 01/12/19 09:30 Diflucan PO 200 mg QDAY DIOGENES Administration Furosemide 40 mg 01/12/19 09:33 Lasix IV 01/12/19 09:34 ONCE ONE Guaifenesin 1,200 mg 01/07/19 10:00 01/12/19 09:30 Mucinex Er PO 1,200 mg BID DIOGENES Administration Hydralazine HCl 5 mg 01/06/19 10:07 Apresoline IV Q30MIN PRN Hypertension Ceftriaxone Sodium 1 gm in 50 mls @ 100 mls/hr 01/06/19 22:00 01/12/19 09:31 Rocephin/Ns 1 Gm/50 Ml IV 100 mls/hr Q12HR DIOGENES Administration Protocol Insulin Human Regular 0 units 01/09/19 22:00 01/11/19 21:45 Humulin R SUB-Q Not Given ACHS [facility] Protocol Methylprednisolone Sodium Succinate 40 mg 01/08/19 13:00 01/12/19 09:31 Solu-Medrol IV 40 mg Q24HR DIOGENES Administration Ondansetron HCl 4 mg 01/06/19 10:07 01/12/19 05:34 Zofran IV 4 mg Q8H PRN Administration N/V unrelieved by Reglan Senna 8.6 mg 01/06/19 22:00 01/12/19 09:31 Senokot PO 8.6 mg Q12HR DIOGENES Administration Trimethoprim/Sulfamethoxazole 2 each 01/06/19 14:00 01/12/19 05:34 Bactrim Ds PO 2 each Q8HR DIOGENES Administration Nutrition/Malnutrition Assess - Dietary Evaluation Nutrition/Malnutrition Findings: Nutrition Notes Start: 01/07/19 12:44 Freq: Status: Active Protocol: Document 01/10/19 09:47 LP (Rec: 01/10/19 09:51 LP [email or web address]) Nutrition Notes Initial or Follow up Reassessment Other Pertinent Diagnosis Abdominal pain, Bilat pneu, HIV, Hyponatremia Current Diet Regular with Ensure Enlive chocolate TID Labs/Tests Na 125 BUN 26 BG 168 Pertinent Medications Reviewed Height 5 ft 6 in Weight 59.5 kg [place] Body Weight (kg) 64.54 BMI 21.2 Subjective/Other Information Pt states not eating anything. Pt states abdominal pain and vomiting. Pt should have GI on case to see what is going on with abdomen. Percent of energy/protein needs met: 0%/0% Burn Absent Trauma Absent #2 Nutrition Diagnosis Inadequate oral intake Etiology abdominal pain and vomiting As Evidenced by Signs and Symptoms Pt consuming 0% of meals and supplements #1 Nutrition Diagnosis Predicted suboptimal energy intake As Evidenced by Signs and Symptoms Not eating anything Diagnosis Progress(for reassessment Resolved documentation) Is patient on ventilator? No Is Patient Ambulatory and/or Out of Bed Yes REE-([facility]-ambulatory/OOB) [ 1791.075 [id number]] Calculation Used for Recommendations [facility] Additional Notes Pro needs 1-1.2g/k-77g/ day Fluid needs 1ml/kcal Nutrition Intervention Change Diet Order: Continue Add Supplement/Snack (indicate name/kcal D/C /protein ) Goal #1 PO intake of meals plus ONS to meet at least 75% energy and pro needs Goal #2 GI testing Anticipated Discharge Needs: Unable to determine at this time Follow-Up By: 01/12/19 Additional Comments Follow for GI notes, intakes?
--- NOTE | 2019-01-12 11:21 | Progress Note ---
Subjective Interval history: Patient was seen today for follow-up on multiple renal related issues Events of this hospitalization noted Patient denies having any chest pain pressure or shortness of breath Vitals labs intake output medications were reviewed Social history: Reviewed Allergies: Reviewed Family history: Reviewed Physical examination HEENT: Oral mucosa moist no pallor or icterus Neck: Supple no JVD Chest: Clear to auscultation anteriorly CVS: Regular rate and rhythm S1 and S2 heard Abdomen: Soft nontender no suprapubic masses no organomegaly appreciable Extremity: Dry skin less than 1+ peripheral edema Musculoskeletal: No joint effusion noted in knees and ankle Neurological: Alert awake Dermatology: No petechial rashes Psychiatry: No evidence of any agitation and aggression noted Assessment and plan; Hyponatremia, patient was treated with Samsca, currently doing well Patient was instructed to comply with fluid restriction 800 mL per day Mild metabolic acidosis start the patient and sodium bicarbonate 39 mg 3 times a day Renal function appears to be normal Mild hyperkalemia with metabolic acidosis? Type IV RTA Will order testing for contrast tubular potassium gradient . 7.0 Shortness of breath could have been due to metabolic acidosis Monitor sodium level, fluid restriction Ejection fraction normal mild diastolic dysfunction Hold diuretic especially avoid hydrochlorothiazide Avoid PPI due to hyponatremia Pepcid is okay Patient was adequately counseled and educated regarding multiple renal related issues Pertinent lab findings were discussed with patient and patient does exhibit good understanding of renal issues. We'll continue to follow and make recommendation from renal standpoint Objective - Vital Signs Vital signs: Vital Signs - 12hr 01/11/19 01/12/19 01/12/19 23:27 03:35 05:34 Temperature 98.3 F 97.3 F L Pulse Rate 99 H 97 H Respiratory 20 18 20 Rate Blood Pressure 144/96 150/92 O2 Sat by Pulse 97 94 Oximetry 01/12/19 01/12/19 07:57 08:56 Temperature 98.3 F Pulse Rate 91 H Respiratory 14 Rate Blood Pressure 137/94 O2 Sat by Pulse 98 98 Oximetry - Lab 01/12/19 04:23 01/12/19 04:23 Most recent lab results Calcium 9.1 mg/dL (8.4-10.2) 01/12/19 04:23 Medications & Allergies - Medications Allergies/Adverse Reactions: Allergies No Known Allergies Allergy (Verified 09/24/15 12:37) Home Medications: Home Medications Medication Instructions Recorded Confirmed Last Taken Type Acetaminophen [Acetaminophen TAB] 650 mg PO Q4H PRN #30 tablet 09/30/15 01/07/19 Unknown Rx Sulfamethoxazole/Trimethoprim 1 each PO DAILY #30 tablet 09/30/15 01/07/19 Unknown Rx [Bactrim DS TAB] Warfarin [Coumadin] 5 mg PO QHS #30 tablet 10/01/15 01/07/19 Unknown Rx Active Medications: Generic Name Dose Route Start Last Admin Trade Name Elena PRN Reason Stop Dose Admin Acetaminophen 650 mg 01/06/19 10:07 Tylenol PO Q4H PRN Pain MILD(1-3)/Fever >100.5/BOOTHE Acetaminophen/Hydrocodone Bitart 2 each 01/06/19 10:07 01/12/19 05:34 [place] 5/325 PO 2 each Q6H PRN Administration Pain, Moderate (4-6) Albuterol 2.5 mg 01/12/19 01:23 Proventil IH Q3HRT PRN Shortness Of Breath Enoxaparin Sodium 40 mg 01/06/19 22:00 01/11/19 21:43 Lovenox SUB-Q 40 mg QDAY@2200 DIOGENES Administration Famotidine 10 mg 01/06/19 22:00 01/12/19 09:30 Pepcid PO 10 mg BID DIOGENES Administration Fluconazole 200 mg 01/06/19 14:00 01/12/19 09:30 Diflucan PO 200 mg QDAY DIOGENES Administration Guaifenesin 1,200 mg 01/07/19 10:00 01/12/19 09:30 Mucinex Er PO 1,200 mg BID DIOGENES Administration Hydralazine HCl 5 mg 01/06/19 10:07 Apresoline IV Q30MIN PRN Hypertension Ceftriaxone Sodium 1 gm in 50 mls @ 100 mls/hr 01/06/19 22:00 01/12/19 09:31 Rocephin/Ns 1 Gm/50 Ml IV 100 mls/hr Q12HR DIOGENES Administration Protocol Insulin Human Regular 0 units 01/09/19 22:00 01/12/19 08:30 Humulin R SUB-Q Not Given ACHS DIOGENES Protocol Methylprednisolone Sodium Succinate 40 mg 01/08/19 13:00 01/12/19 09:31 Solu-Medrol IV 40 mg Q24HR DIOGENES Administration Ondansetron HCl 4 mg 01/06/19 10:07 01/12/19 05:34 Zofran IV 4 mg Q8H PRN Administration N/V unrelieved by James Noe 8.6 mg 01/06/19 22:00 01/12/19 09:31 Senokot PO 8.6 mg Q12HR DIOGENES Administration Trimethoprim/Sulfamethoxazole 2 each 01/06/19 14:00 01/12/19 05:34 Bactrim Ds PO 2 each Q8HR DIOGENES Administration
[2019-01-12] MEDS: SODIUM BICARBONATE PO SCH (22:48)
[2019-01-12] MEDS: LOVENOX SUB-Q SCH (22:49)
[2019-01-13 05:27] LABS: Hematocrit 36.7 % (35.5-45.6); Hemoglobin 12.7 gm/dl (11.8-15.2); Mean Corpuscular HGB Conc 35 % (32-34); Mean Corpuscular Volume 88 fl (84-94); Platelet Count 380 K/mm3 (140-440); Red Blood Count 4.19 M/mm3 (3.65-5.03); Red Cell Distribution Width 13.8 % (13.2-15.2)
[2019-01-13 05:52] LABS: BUN/Creatinine Ratio 26; Blood Urea Nitrogen 31 mg/dL (9-20); Calcium 9.4 mg/dL (8.4-10.2); Hemolysis Index 9
[2019-01-13] MEDS: BACTRIM DS PO SCH ×3 (06:10→22:35)
[2019-01-13] MEDS: HumuLIN R SUB-Q SCH ×4 (08:09→22:36)
--- NOTE | 2019-01-13 08:59 | Progress Note ---
Assessment and Plan 53 y/o with acute respiratory failure, initially thought secondary to pneumonia, now worsening, most likely secondary to volume overload. 1. Ordered Strict I/O 2. Repeat CXR today. Hold on lasix therapy today. 3. Wean FiO2 for sats 88% 4. Abx therapy per ID. Agree with current dose of steroid for PJP treatment. 5. Needs better BP control 6. unable to get in touch with endoscopy. Will not be able to bronch patient today. Subjective Date of service: 01/13/19 Interval history: Patient speaks no Uzbek and no family at bedside. Overall though clinically he appears better. Work of breathing is easier. Gave lasix yesterday. Renal following and Na is 126 again. Objective Vital Signs - 12hr 01/12/19 01/13/19 01/13/19 22:00 00:07 05:38 Temperature 98.2 F 98.2 F Pulse Rate 89 85 Respiratory 18 18 Rate Blood Pressure 152/100 140/90 O2 Sat by Pulse 95 95 94 Oximetry 01/13/19 07:21 Temperature 98.3 F Pulse Rate 87 Respiratory 18 Rate Blood Pressure 138/84 O2 Sat by Pulse 99 Oximetry Constitutional: alert, appears uncomfortable Eyes: non-icteric ENT: oropharynx moist Neck: supple, no JVD Effort: very labored Ascultation: Bilateral: rales Percussion: Bilateral: not dull Cardiovascular: regular rate and rhythm (sinus tach) Gastrointestinal: normoactive bowel sounds, soft, non-tender Neurologic: normal mental status, non-focal exam CBC and BMP: 01/13/19 04:13 01/13/19 04:13 ABG, PT/INR, D-dimer: ABG POC ABG pH 7.415 (7.35-7.45) 01/08/19 17:36 POC ABG pO2 61 (80-105) L 01/08/19 17:36 POC ABG HCO3 15.0 (22-26 mml/L) 01/08/19 17:36 POC ABG Total CO2 16 (23-27mmol/L) 01/08/19 17:36 POC ABG O2 Sat 92 01/08/19 17:36 PT/INR, D-dimer PT 13.9 Sec. (12.2-14.9) 01/06/19 06:56 INR 1.10 (0.87-1.13) 01/06/19 06:56 Abnormal lab findings: Abnormal Labs 01/06/19 01/06/19 01/06/19 06:56 06:56 06:56 WBC 11.2 H RBC 3.50 L Hgb 10.5 L Hct 30.8 L MCHC Lymph % (Auto) 2.7 L [place] % (Auto) 8.0 H Lymph # 0.3 L [place] # 0.9 H Seg Neutrophils % 86.7 H Seg Neuts % (Manual) Lymphocytes % (Manual) Seg Neutrophils # 9.7 H Seg Neutrophils # Man Lymphocytes # (Manual) POC ABG pH POC ABG pO2 VBG pH 7.459 H Sodium 130 L Potassium Chloride Carbon Dioxide 18 L BUN Creatinine 0.7 L Glucose 119 H POC Glucose Calcium 8.1 L NT-Pro-B Natriuret Pep Albumin 2.4 L TSH HIV-1 RNA PCR copies/ml HIV-1 RNA (PCR) log 01/06/19 01/06/19 01/07/19 06:59 13:32 08:39 WBC RBC Hgb Hct MCHC Lymph % (Auto) [place] % (Auto) Lymph # [place] # Seg Neutrophils % Seg Neuts % (Manual) Lymphocytes % (Manual) Seg Neutrophils # Seg Neutrophils # Man Lymphocytes # (Manual) POC ABG pH 7.474 H POC ABG pO2 58 L VBG pH Sodium Potassium Chloride Carbon Dioxide BUN Creatinine Glucose POC Glucose 132 H Calcium NT-Pro-B Natriuret Pep Albumin TSH HIV-1 RNA PCR copies/ml [id number] H HIV-1 RNA (PCR) log 6.24 H 01/07/19 01/07/19 01/08/19 11:17 16:12 06:50 WBC 19.2 H RBC Hgb 11.2 L Hct 33.1 L MCHC Lymph % (Auto) [place] % (Auto) Lymph # [place] # Seg Neutrophils % Seg Neuts % (Manual) 98.0 H Lymphocytes % (Manual) 1.0 L Seg Neutrophils # Seg Neutrophils # Man 18.8 H Lymphocytes # (Manual) 0.2 L POC ABG pH POC ABG pO2 VBG pH Sodium Potassium Chloride Carbon Dioxide BUN Creatinine Glucose POC Glucose 219 H 148 H Calcium NT-Pro-B Natriuret Pep Albumin TSH HIV-1 RNA PCR copies/ml HIV-1 RNA (PCR) log 06/01/08/19 01/08/19 06:50 06:50 17:36 WBC RBC Hgb Hct MCHC Lymph % (Auto) [place] % (Auto) Lymph # [place] # Seg Neutrophils % Seg Neuts % (Manual) Lymphocytes % (Manual) Seg Neutrophils # Seg Neutrophils # Man Lymphocytes # (Manual) POC ABG pH POC ABG pO2 61 L VBG pH Sodium 134 L Potassium Chloride Carbon Dioxide 15 L BUN Creatinine Glucose POC Glucose Calcium 7.8 L NT-Pro-B Natriuret Pep 1357 H Albumin TSH HIV-1 RNA PCR copies/ml HIV-1 RNA (PCR) log 01/08/19 01/09/19 01/09/19 21:34 07:34 12:03 WBC RBC Hgb Hct MCHC Lymph % (Auto) [place] % (Auto) Lymph # [place] # Seg Neutrophils % Seg Neuts % (Manual) Lymphocytes % (Manual) Seg Neutrophils # Seg Neutrophils # Man Lymphocytes # (Manual) POC ABG pH POC ABG pO2 VBG pH Sodium Potassium Chloride Carbon Dioxide BUN Creatinine Glucose POC Glucose 208 H 168 H 176 H Calcium NT-Pro-B Natriuret Pep Albumin TSH HIV-1 RNA PCR copies/ml HIV-1 RNA (PCR) log 01/09/19 01/09/19 01/10/19 16:08 20:58 00:18 WBC 13.8 H RBC Hgb 11.6 L Hct 34.7 L MCHC Lymph % (Auto) [place] % (Auto) Lymph # [place] # Seg Neutrophils % Seg Neuts % (Manual) 96.0 H Lymphocytes % (Manual) 2.0 L Seg Neutrophils # Seg Neutrophils # Man 13.2 H Lymphocytes # (Manual) 0.3 L POC ABG pH POC ABG pO2 VBG pH Sodium Potassium Chloride Carbon Dioxide BUN Creatinine Glucose POC Glucose 232 H 174 H Calcium NT-Pro-B Natriuret Pep Albumin TSH HIV-1 RNA PCR copies/ml HIV-1 RNA (PCR) log 01/10/19 01/10/19 01/10/19 04:44 07:34 10:36 WBC RBC Hgb Hct MCHC Lymph % (Auto) [place] % (Auto) Lymph # [place] # Seg Neutrophils % Seg Neuts % (Manual) Lymphocytes % (Manual) Seg Neutrophils # Seg Neutrophils # Man Lymphocytes # (Manual) POC ABG pH POC ABG pO2 VBG pH Sodium 125 L D Potassium Chloride 91.9 L Carbon Dioxide 16 L BUN 26 H Creatinine Glucose 168 H POC Glucose 143 H Calcium NT-Pro-B Natriuret Pep Albumin TSH 0.118 L HIV-1 RNA PCR copies/ml HIV-1 RNA (PCR) log 01/10/19 01/10/19 01/10/19 11:22 15:15 17:28 WBC RBC Hgb Hct MCHC Lymph % (Auto) [place] % (Auto) Lymph # [place] # Seg Neutrophils % Seg Neuts % (Manual) Lymphocytes % (Manual) Seg Neutrophils # Seg Neutrophils # Man Lymphocytes # (Manual) POC ABG pH POC ABG pO2 VBG pH Sodium 120 L Potassium 5.1 H D Chloride 89.6 L Carbon Dioxide 14 L BUN 22 H Creatinine Glucose 171 H POC Glucose 170 H 168 H Calcium NT-Pro-B Natriuret Pep Albumin TSH HIV-1 RNA PCR copies/ml HIV-1 RNA (PCR) log 01/10/19 01/11/19 01/11/19 21:01 04:27 04:27 WBC 13.6 H RBC Hgb Hct 34.6 L MCHC 35 H Lymph % (Auto) [place] % (Auto) Lymph # [place] # Seg Neutrophils % Seg Neuts % (Manual) Lymphocytes % (Manual) Seg Neutrophils # Seg Neutrophils # Man Lymphocytes # (Manual) POC ABG pH POC ABG pO2 VBG pH Sodium 134 L D Potassium Chloride Carbon Dioxide 20 L BUN 21 H Creatinine Glucose 115 H POC Glucose 165 H Calcium NT-Pro-B Natriuret Pep Albumin TSH HIV-1 RNA PCR copies/ml HIV-1 RNA (PCR) log 01/11/19 01/11/19 01/11/19 08:32 11:33 17:21 WBC RBC Hgb Hct MCHC Lymph % (Auto) [place] % (Auto) Lymph # [place] # Seg Neutrophils % Seg Neuts % (Manual) Lymphocytes % (Manual) Seg Neutrophils # Seg Neutrophils # Man Lymphocytes # (Manual) POC ABG pH POC ABG pO2 VBG pH Sodium Potassium Chloride Carbon Dioxide BUN Creatinine Glucose POC Glucose 106 H 188 H 173 H Calcium NT-Pro-B Natriuret Pep Albumin TSH HIV-1 RNA PCR copies/ml HIV-1 RNA (PCR) log 01/11/19 01/12/19 01/12/19 20:50 04:23 04:23 WBC RBC Hgb 11.7 L Hct 34.6 L MCHC Lymph % (Auto) [place] % (Auto) Lymph # [place] # Seg Neutrophils % Seg Neuts % (Manual) Lymphocytes % (Manual) Seg Neutrophils # Seg Neutrophils # Man Lymphocytes # (Manual) POC ABG pH POC ABG pO2 VBG pH Sodium 130 L Potassium Chloride Carbon Dioxide 17 L BUN 23 H Creatinine Glucose 104 H POC Glucose 124 H Calcium NT-Pro-B Natriuret Pep Albumin TSH HIV-1 RNA PCR copies/ml HIV-1 RNA (PCR) log 01/12/19 01/12/19 01/12/19 13:04 16:45 21:46 WBC RBC Hgb Hct MCHC Lymph % (Auto) [place] % (Auto) Lymph # [place] # Seg Neutrophils % Seg Neuts % (Manual) Lymphocytes % (Manual) Seg Neutrophils # Seg Neutrophils # Man Lymphocytes # (Manual) POC ABG pH POC ABG pO2 VBG pH Sodium Potassium Chloride Carbon Dioxide BUN Creatinine Glucose POC Glucose 160 H 170 H 142 H Calcium NT-Pro-B Natriuret Pep Albumin TSH HIV-1 RNA PCR copies/ml HIV-1 RNA (PCR) log 01/13/19 01/13/19 04:13 04:13 WBC RBC Hgb Hct MCHC 35 H Lymph % (Auto) [place] % (Auto) Lymph # [place] # Seg Neutrophils % Seg Neuts % (Manual) Lymphocytes % (Manual) Seg Neutrophils # Seg Neutrophils # Man Lymphocytes # (Manual) POC ABG pH POC ABG pO2 VBG pH Sodium 126 L Potassium Chloride 93.1 L Carbon Dioxide 20 L BUN 31 H Creatinine Glucose POC Glucose Calcium NT-Pro-B Natriuret Pep Albumin TSH HIV-1 RNA PCR copies/ml HIV-1 RNA (PCR) log
[2019-01-13] MEDS: ROCEPHIN/NS 1 GM/50 ML 1 GM/50 ML BAG IV SCH (09:52)
[2019-01-13] MEDS: PEPCID PO SCH ×2 (09:53→22:36)
[2019-01-13] MEDS: SENOKOT PO SCH ×2 (09:54→22:36)
[2019-01-13] MEDS: SODIUM BICARBONATE PO SCH ×2 (09:54→22:35)
[2019-01-13] MEDS: DIFLUCAN PO SCH (09:54)
[2019-01-13] MEDS: SOLU-Medrol IV SCH (09:54)
[2019-01-13] MEDS: MUCINEX ER PO SCH ×2 (09:54→22:35)
--- NOTE | 2019-01-13 10:25 | Progress Note ---
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 Etiology most likely pneumonia.HBC and HCV serology nonreactive. RPR nonreactive. 2) Bilateral pneumonia: likely PJP +/- CAP. Patient with HIV not on ART, likely AIDS. CXR showed patchy left greater than right basilar opacity with left basilar air bronchograms. 02 weaned down to 2L. 3) Oral candidiasis: Improved 4) HIV/AIDS: noncompliant with ART therapy. Viral load 1.7 mil. Recommendations: - continue Bactrim DS 2 tab po TID to treat empirically PJP for total 21 days, Then Bactrim DS 1 tab po q day (prescriptions on the chart) - continue fluconazole 200mg PO qday, D8 of D10 - follow-up CD4, HIV genotype - needs education about consistent HIV management -discussed with case management and patient. Information will be provided to follow-up with [facility] to start ART therapy -Clinically stable, Ok to discharge from ID standpoint. Dr. Meraz is correspondence clerk this weekend [phone], please call for questions. Dr. Short will round on Wednesday, if the patient is not discharged. Kayleen Botello NP [facility] M: [phone] O:[phone] Subjective Date of service: 01/13/19 Interval history: Patient seen and examined. Primary language Arabic. Conversation via interpretation line. states that he is feeling better today. No fever or SOB. Son at bedside. Objective - Exam Narrative Exam: General appearance: Awake. Alert. No acute distress. Eyes: anicteric sclerae, moist conjunctivae; no lid-lag; PERRLA HENT: Atraumatic; oropharynx clear with moist mucous membranes and +mild oral thrush; normal hard and soft palate. Normal external ears. Neck: Trachea midline; supple, no thyromegaly or lymphadenopathy Lungs: fine crackles LLL, 02/2L CV: RRR Abdomen: Soft, diffuse tenderness and pain. Extremities: no edema, cyanosis Skin: Normal temperature, turgor and texture; no rash, ulcers or subcutaneous nodules Psych: Appropriate affect, alert and oriented to person, place and time. Neuro: alert and oriented x 3. Moving all extremities - Constitutional Vitals: Vital Signs Temp Pulse Resp BP Pulse Ox 98.3 F 87 18 138/84 99 01/13/19 07:21 01/13/19 07:21 01/13/19 07:21 01/13/19 07:21 01/13/19 07:21 Temperature -Last 24 Hours Temperature 98.3 F Temperature 98.2 F Temperature 98.2 F Temperature 98.1 F Temperature 98.1 F Temperature 97.3 F - Labs CBC & Chem 7: 01/13/19 04:13 01/13/19 04:13 Labs: Abnormal lab results 01/12/19 01/12/19 01/12/19 Range/Units 13:04 16:45 21:46 MCHC (32-34) % Sodium (137-145) mmol/L Chloride (98-107) mmol/L Carbon Dioxide (22-30) mmol/L BUN (9-20) mg/dL POC Glucose 160 H 170 H 142 H (70-105) 01/13/19 01/13/19 Range/Units 04:13 04:13 MCHC 35 H (32-34) % Sodium 126 L (137-145) mmol/L Chloride 93.1 L (98-107) mmol/L Carbon Dioxide 20 L (22-30) mmol/L BUN 31 H (9-20) mg/dL POC Glucose (70-105)
--- NOTE | 2019-01-13 11:07 | XRay Report ---
CHEST 1 VIEW INDICATION: Hypoxemia. COMPARISON: 01/08/2019 FINDINGS: Support devices: None. Heart: Within normal limits. Pulmonary vessels: More distinct than on the last exam. Lungs/Pleura: Prominent bilateral reticular interstitial opacities but some improvement since the las t exam. No pulmonary consolidation. Additional findings: No pleural effusion. IMPRESSION: Persistent predominantly bibasal interstitial opacities but some improvement compared to previous exa ms. Signer Name: Kranthi Abraham MD Signed: 01/13/2019 11:02 AM Workstation Name: [id number]
--- NOTE | 2019-01-13 11:22 | Progress Note ---
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 Objective - Vital Signs Vital signs: Vital Signs - 12hr 01/13/19 01/13/19 01/13/19 00:07 05:38 07:21 Temperature 98.2 F 98.2 F 98.3 F Pulse Rate 89 85 87 Respiratory 18 18 18 Rate Blood Pressure 152/100 140/90 138/84 O2 Sat by Pulse 95 94 99 Oximetry - General Appearance General appearance: well-developed, well-nourished EENT: ATNC Respiratory: Present: Other (faint inspiratory crackles) Cardiology: regular, S1S2 Gastrointestinal: normal, no tenderness, no distended Integumentary: no rash Neurologic: no focal deficit Musculoskeletal: other (no peripheral edema) Psychiatric: cooperative - Lab 01/13/19 04:13 01/13/19 04:13 Most recent lab results Calcium 9.4 mg/dL (8.4-10.2) 01/13/19 04:13 Medications & Allergies - Medications Allergies/Adverse Reactions: Allergies No Known Allergies Allergy (Verified 09/24/15 12:37) Home Medications: Home Medications Medication Instructions Recorded Confirmed Last Taken Type Acetaminophen [Acetaminophen TAB] 650 mg PO Q4H PRN #30 tablet 09/30/15 01/07/19 Unknown Rx Sulfamethoxazole/Trimethoprim 1 each PO DAILY #30 tablet 09/30/15 01/07/19 Unk nown Rx [Bactrim DS TAB] Warfarin [Coumadin] 5 mg PO QHS #30 tablet 10/01/15 01/07/19 Unknown Rx Active Medications: Generic Name Dose Route Start Last Admin Trade Name Freq PRN Reason Stop Dose Admin Acetaminophen 650 mg 01/06/19 10:07 Tylenol PO Q4H PRN Pain MILD(1-3)/Fever >100.5/BOOTHE Acetaminophen/Hydrocodone Bitart 2 each 01/06/19 10:07 01/12/19 05:34 [place] 5/325 PO 2 each Q6H PRN Administration Pain, Moderate (4-6) Albuterol 2.5 mg 01/12/19 01:23 Proventil IH Q3HRT PRN Shortness Of Breath Enoxaparin Sodium 40 mg 01/06/19 22:00 01/12/19 22:49 Lovenox SUB-Q 40 mg QDAY@2200 DIOGENES Administration Famotidine 10 mg 01/06/19 22:00 01/13/19 09:53 Pepcid PO 10 mg BID DIOGENES Administration Fluconazole 200 mg 01/06/19 14:00 01/13/19 09:54 Diflucan PO 200 mg QDAY DIOGENES Administration Guaifenesin 1,200 mg 01/07/19 10:00 01/13/19 09:54 Mucinex Er PO 1,200 mg BID DIOGENES Administration Hydralazine HCl 5 mg 01/06/19 10:07 Apresoline IV Q30MIN PRN Hypertension Insulin Human Regular 0 units 01/09/19 22:00 01/13/19 08:09 Humulin R SUB-Q Not Given ACHS [facility] Protocol Methylprednisolone Sodium Succinate 40 mg 01/08/19 13:00 01/13/19 09:54 Solu-Medrol IV 40 mg Q24HR DIOGENES Administration Ondansetron HCl 4 mg 01/06/19 10:07 01/12/19 05:34 Zofran IV 4 mg Q8H PRN Administration N/V unrelieved by James Senna 8.6 mg 01/06/19 22:00 01/13/19 09:54 Senokot PO 8.6 mg Q12HR DIOGENES Administration Sodium Bicarbonate 1,300 mg 01/12/19 22:00 01/13/19 09:54 Sodium Bicarbonate PO 1,300 mg BID DIOGENES Administration Trimethoprim/Sulfamethoxazole 2 each 01/06/19 14:00 01/13/19 06:10 Bactrim Ds PO 2 each Q8HR DIOGENES Administration
--- NOTE | 2019-01-13 12:33 | Progress Note ---
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 Acute hypoxic respiratory failure due to pneumonia - monitor patient - Will provide scheduled nebulizer breathing treatment and as needed - follow sputum culture, chest x-ray showed bilateral pneumonia - Provide supplemental oxygen to keep oxygen saturation above 92% - less shortness of breath - Now on Oxygen by NC at 2l/min with Oxygen sat of 98% B/L PNA with sepsis - Obtained blood culture, sputum culture - ID consulted,following cont iv abx per ID recommendation h/o HIV dx on Jun 2015, not on ARV since then - ID Physician following follow-up CD4, VL, HIV genotype, cryptococcal serum antigen, HBV and HCV serology, RPR -HIV RNA copies/ml 1,720,000 Hyponatremia, Improving after Tolvaptan 15mg po x 1 dose given on 01/10 Na 126 today Consulted Nephrology, following Repeat Tolvaptan today Noncompliance, counseled Oral candidiasis, started on fluconazole DVT prophylaxis, Lovenox Discussed with case management. May need home Oxygen History Interval history: Less shortness of breath No fever Hospitalist Physical - Physical exam Narrative exam: Gen: Not in acute distress, lying in bed, On Oxygen by NC HEENT: Normocephalic, atraumatic Neck: supple, no JVD Heart: S1 and S2 reg, no murmurs, rubs or gallop Lungs: Crackles left base, no wheeze Abd: soft, non tender, non distended, normal BS Ext: No edema, no clubbing, no cyanosis, Neuro: Awake,alert, moves all ext, non focal Psych:Normal mood - Constitutional Vitals: Temp Pulse Resp BP Pulse Ox 98.3 F 85 20 138/84 98 01/13/19 07:21 01/13/19 10:00 01/13/19 10:00 01/13/19 07:21 01/13/19 10:00 Results - Labs CBC & Chem 7: 01/13/19 04:13 01/13/19 04:13 Labs: Laboratory Last Values WBC 6.6 K/mm3 (4.5-11.0) 01/13/19 04:13 RBC 4.19 M/mm3 (3.65-5.03) 01/13/19 04:13 Hgb 12.7 gm/dl (11.8-15.2) 01/13/19 04:13 Hct 36.7 % (35.5-45.6) 01/13/19 04:13 MCV 88 fl (84-94) 01/13/19 04:13 MCH 30 pg (28-32) 01/13/19 04:13 MCHC 35 % (32-34) H 01/13/19 04:13 RDW 13.8 % (13.2-15.2) 01/13/19 04:13 Plt Count 380 K/mm3 (140-440) 01/13/19 04:13 Lymph % (Auto) 2.7 % (13.4-35.0) L 01/06/19 06:56 [place] % (Auto) 8.0 % (0.0-7.3) H 01/06/19 06:56 Eos % (Auto) 2.3 % (0.0-4.3) 01/06/19 06:56 Baso % (Auto) 0.3 % (0.0-1.8) 01/06/19 06:56 Lymph # 0.3 K/mm3 (1.2-5.4) L 01/06/19 06:56 [place] # 0.9 K/mm3 (0.0-0.8) H 01/06/19 06:56 Eos # 0.3 K/mm3 (0.0-0.4) 01/06/19 06:56 Baso # 0.0 K/mm3 (0.0-0.1) 01/06/19 06:56 Add Manual Diff Complete 01/10/19 00:18 Total Counted 100 01/10/19 00:18 Seg Neutrophils % Utility Spray Operator 01/10/19 00:18 Seg Neuts % (Manual) 96.0 % (40.0-70.0) H 01/10/19 00:18 0 % 01/10/19 00:18 2.0 % (13.4-35.0) L 01/10/19 00:18 Reactive Lymphs % (Man) 0 % 01/10/19 00:18 2.0 % (0.0-7.3) 01/10/19 00:18 0 % (0.0-4.3) 01/10/19 00:18 0 % (0.0-1.8) 01/10/19 00:18 0 % 01/10/19 00:18 0 % 01/10/19 00:18 0 % 01/10/19 00:18 0 % 01/10/19 00:18 Nucleated RBC % Not Reportable 01/10/19 00:18 Seg Neutrophils # 9.7 K/mm3 (1.8-7.7) H 01/06/19 06:56 Seg Neutrophils # Man 13.2 K/mm3 (1.8-7.7) H 01/10/19 00:18 Band Neutrophils # 0.0 K/mm3 01/10/19 00:18 0.3 K/mm3 (1.2-5.4) L 01/10/19 00:18 Abs React Lymphs (Man) 0.0 K/mm3 01/10/19 00:18 0.3 K/mm3 (0.0-0.8) 01/10/19 00:18 0.0 K/mm3 (0.0-0.4) 01/10/19 00:18 0.0 K/mm3 (0.0-0.1) 01/10/19 00:18 0.0 K/mm3 01/10/19 00:18 0.0 K/mm3 01/10/19 00:18 0.0 K/mm3 01/10/19 00:18 Blast Cells # 0.0 K/mm3 01/10/19 00:18 WBC Morphology Not Reportable 01/10/19 00:18 Hypersegmented Neuts Not Reportable 01/10/19 00:18 Hyposegmented Neuts Not Reportable 01/10/19 00:18 Hypogranular Neuts Not Reportable 01/10/19 00:18 Not Reportable 01/10/19 00:18 Not Reportable 01/10/19 00:18 Not Reportable 01/10/19 00:18 Not Reportable 01/10/19 00:18 Not Reportable 01/10/19 00:18 Not Reportable 01/10/19 00:18 Consistent w auto 01/10/19 00:18 Not Reportable 01/10/19 00:18 Plt Clumps, EDTA Not Reportable 01/10/19 00:18 Not Reportable 01/10/19 00:18 Not Reportable 01/10/19 00:18 Not Reportable 01/10/19 00:18 Plt Morphology Comment Not Reportable 01/10/19 00:18 RBC Morphology Normal 01/10/19 00:18 Dimorphic RBCs Not Reportable 01/10/19 00:18 Not Reportable 01/10/19 00:18 Not Reportable 01/10/19 00:18 Not Reportable 01/10/19 00:18 Not Reportable 01/10/19 00:18 Not Reportable 01/10/19 00:18 Not Reportable 01/10/19 00:18 Not Reportable 01/10/19 00:18 Not Reportable 01/10/19 00:18 Not Reportable 01/10/19 00:18 Not Reportable 01/10/19 00:18 Not Reportable 01/10/19 00:18 Not Reportable 01/10/19 00:18 Not Reportable 01/10/19 00:18 Not Reportable 01/10/19 00:18 Not Reportable 01/10/19 00:18 Not Reportable 01/10/19 00:18 Not Reportable 01/10/19 00:18 Not Reportable 01/10/19 00:18 Not Reportable 01/10/19 00:18 Acanthocytes (Spur) Not Reportable 01/10/19 00:18 Rouleaux Not Reportable 01/10/19 00:18 Not Reportable 01/10/19 00:18 Not Reportable 01/10/19 00:18 Not Reportable 01/10/19 00:18 Not Reportable 01/10/19 00:18 Hem Pathologist Commnt No 01/10/19 00:18 PT 13.9 Sec. (12.2-14.9) 01/06/19 06:56 INR 1.10 (0.87-1.13) 01/06/19 06:56 APTT 34.9 Sec. (24.2-36.6) 01/06/19 06:56 POC ABG pH 7.415 (7.35-7.45) 01/08/19 17:36 POC ABG pO2 61 (80-105) L 01/08/19 17:36 POC ABG HCO3 15.0 (22-26 mml/L) 01/08/19 17:36 POC ABG Total CO2 16 (23-27mmol/L) 01/08/19 17:36 POC ABG O2 Sat 92 01/08/19 17:36 POC ABG Base Excess -10 ((-2) - (+3)mmol/L) 01/08/19 17:36 VBG pH 7.459 (7.320-7.420) H 01/06/19 06:56 40 % 01/08/19 17:36 Sodium 126 mmol/L (137-145) L 01/13/19 04:13 Potassium 4.8 mmol/L (3.6-5.0) 01/13/19 04:13 Chloride 93.1 mmol/L (98-107) L 01/13/19 04:13 Carbon Dioxide 20 mmol/L (22-30) L 01/13/19 04:13 18 mmol/L 01/13/19 04:13 BUN 31 mg/dL (9-20) H 01/13/19 04:13 1.2 mg/dL (0.8-1.5) 01/13/19 04:13 Estimated GFR > 60 ml/min 01/13/19 04:13 26 % 01/13/19 04:13 Glucose 89 mg/dL (75-100) 01/13/19 04:13 POC Glucose 93 (70-105) 01/13/19 11:26 288 Mosm/kg 01/12/19 14:57 Lactic Acid 1.10 mmol/L (0.7-2.0) 01/06/19 09:43 Calcium 9.4 mg/dL (8.4-10.2) 01/13/19 04:13 0.40 mg/dL (0.1-1.2) 01/06/19 06:56 < 0.2 mg/dL (0-0.2) 01/06/19 06:56 AST 27 units/L (5-40) 01/06/19 06:56 ALT 14 units/L (7-56) 01/06/19 06:56 65 units/L (35-129) 01/06/19 06:56 < 0.010 ng/mL (0.00-0.029) 01/06/19 12:15 NT-Pro-B Natriuret Pep 1357 pg/mL (0-900) H 01/08/19 06:50 7.2 g/dL (6.3-8.2) 01/06/19 06:56 2.4 g/dL (3.9-5) L 01/06/19 06:56 0.5 % 01/06/19 06:56 TSH 0.118 mlU/mL (0.270-4.200) L 01/10/19 10:36 Free T4 1.39 ng/dL (0.76-1.46) 01/10/19 21:44 11.7 mcg/dL () 01/10/19 10:36 Yellow (Yellow) 01/10/19 Unknown Cloudy (Clear) 01/10/19 Unknown 7.0 (5.0-7.0) 01/10/19 Unknown Ur Specific [place] 1.016 (1.003-1.030) 01/10/19 Unknown <15 mg/dl mg/dL (Negative) 01/10/19 Unknown Neg mg/dL (Negative) 01/10/19 Unknown Neg mg/dL (Negative) 01/10/19 Unknown Neg (Negative) 01/10/19 Unknown Neg (Negative) 01/10/19 Unknown Neg (Negative) 01/10/19 Unknown < 2.0 mg/dL (<2.0) 01/10/19 Unknown Ur Leukocyte Esterase Neg (Negative) 01/10/19 Unknown 4.0 /HPF (0.0-6.0) 01/10/19 Unknown 1.0 /HPF (0.0-6.0) 01/10/19 Unknown 1+ /HPF (Negative) 01/10/19 Unknown Few /HPF 01/06/19 08:09 500 Mosm/kg 01/12/19 19:30 13.43 mmol/L 01/12/19 19:30 RPR Nonreactive (Nonreactive) 01/06/19 13:32 Hepatitis A IgM Ab Non-reactive (NonReactive) 01/06/19 13:32 Hep Bs Antigen Non-reactive (Negative) 01/06/19 13:32 Hep B Core IgM Ab Non-reactive (NonReactive) 01/06/19 13:32 Non-reactive (NonReactive) 01/06/19 13:32 HIV-1 RNA PCR copies/ml [id number] Copies/mL H 01/06/19 13:32 6.24 Log cps/mL H 01/06/19 13:32 Active Medications - Current Medications Current Medications: Generic Name Dose Route Start Last Admin Trade Name Freq PRN Reason Stop Dose Admin Acetaminophen 650 mg 01/06/19 10:07 Tylenol PO Q4H PRN Pain MILD(1-3)/Fever >100.5/BOOTHE Acetaminophen/Hydrocodone Bitart 2 each 01/06/19 10:07 01/12/19 05:34 [place] 5/325 PO 2 each Q6H PRN Administration Pain, Moderate (4-6) Albuterol 2.5 mg 01/12/19 01:23 Proventil IH Q3HRT PRN Shortness Of Breath Enoxaparin Sodium 40 mg 01/06/19 22:00 01/12/19 22:49 Lovenox SUB-Q 40 mg QDAY@2200 DIOGENES Administration Famotidine 10 mg 01/06/19 22:00 01/13/19 09:53 Pepcid PO 10 mg BID DIOGENES Administration Fluconazole 200 mg 01/06/19 14:00 01/13/19 09:54 Diflucan PO 200 mg QDAY DIOGENES Administration Guaifenesin 1,200 mg 01/07/19 10:00 01/13/19 09:54 Mucinex Er PO 1,200 mg BID DIOGENES Administration Hydralazine HCl 5 mg 01/06/19 10:07 Apresoline IV Q30MIN PRN Hypertension Insulin Human Regular 0 units 01/09/19 22:00 01/13/19 12:06 Humulin R SUB-Q Not Given ACHS [facility] Protocol Methylprednisolone Sodium Succinate 40 mg 01/08/19 13:00 01/13/19 09:54 Solu-Medrol IV 40 mg Q24HR DIOGENES Administration Ondansetron HCl 4 mg 01/06/19 10:07 01/12/19 05:34 Zofran IV 4 mg Q8H PRN Administration N/V unrelieved by James Noe 8.6 mg 01/06/19 22:00 01/13/19 09:54 Senokot PO 8.6 mg Q12HR DIOGENES Administration Sodium Bicarbonate 1,300 mg 01/12/19 22:00 01/13/19 09:54 Sodium Bicarbonate PO 1,300 mg BID DIOGENES Administration Trimethoprim/Sulfamethoxazole 2 each 01/06/19 14:00 01/13/19 06:10 Bactrim Ds PO 2 each Q8HR DIOGENES Administration Nutrition/Malnutrition Assess - Dietary Evaluation Nutrition/Malnutrition Findings: Nutrition Notes Start: 01/07/19 12:44 Freq: Status: Active Protocol: Document 01/12/19 14:26 RM (Rec: 01/12/19 14:35 RM [id number]) Nutrition Notes Initial or Follow up Reassessment Current Diagnosis Sepsis Other Pertinent Diagnosis Abdominal pain, Bilat pneu, HIV, Hyponatremia, Noncompliance Current Diet Regular Labs/Tests Reviewed Pertinent Medications Lasix, Solu-Medrol Height 5 ft 6 in Weight 59.6 kg [place] Body Weight (kg) 64.54 BMI 21.2 Subjective/Other Information Pt stated that he has been eating bites of [place] food that has been brought in and drinks the Ensure Enlive. Noted various partially eaten foods and half drunk Ensure Enlive on bedside table. Denied N/V. Percent of energy/protein needs met: 10%/15% Burn Absent Trauma Absent #2 Nutrition Diagnosis Inadequate oral intake Diagnosis Progress(for reassessment Continues documentation) Is patient on ventilator? No Is Patient Ambulatory and/or Out of Bed Yes REE-([facility]-ambulatory/OOB) [ [id number] [id number]] Calculation Used for Recommendations [facility] Additional Notes Pro needs 1-1.2g/k-77g/ day Fluid needs 1ml/kcal Nutrition Intervention Change Diet Order: Continue Add Supplement/Snack (indicate name/kcal Ensure Enlive Chocolate 1 /protein ) daily Provides kCal: 350 Provides Protein (gm) 20 Goal #1 PO intake of meals plus ONS to meet at least 75% energy and pro needs Anticipated Discharge Needs: Unable to determine at this time Follow-Up By: 01/15/19 Additional Comments Follow for PO and ONS intakes
[2019-01-13] MEDS ORDERED: SAMSCA PO ONE (13:20)
[2019-01-13] MEDS: LOVENOX SUB-Q SCH (22:35)
[2019-01-14] MEDS: BACTRIM DS PO SCH ×3 (05:39→21:19)
[2019-01-14 05:55] LABS: Hematocrit 37.9 % (35.5-45.6); Hemoglobin 12.9 gm/dl (11.8-15.2); Mean Corpuscular HGB Conc 34 % (32-34); Mean Corpuscular Volume 88 fl (84-94); Platelet Count 388 K/mm3 (140-440); Red Blood Count 4.29 M/mm3 (3.65-5.03); Red Cell Distribution Width 13.8 % (13.2-15.2)
[2019-01-14 06:10] LABS: BUN/Creatinine Ratio 30; Blood Urea Nitrogen 36 mg/dL (9-20); Calcium 9.6 mg/dL (8.4-10.2); Hemolysis Index 10
[2019-01-14] MEDS: HumuLIN R SUB-Q SCH ×4 (07:59→21:25)
[2019-01-14] MEDS: SODIUM BICARBONATE PO SCH ×2 (09:12→21:19)
[2019-01-14] MEDS: DIFLUCAN PO SCH (09:12)
[2019-01-14] MEDS: MUCINEX ER PO SCH ×2 (09:12→21:18)
[2019-01-14] MEDS: SENOKOT PO SCH ×2 (09:12→21:18)
[2019-01-14] MEDS: PEPCID PO SCH ×2 (09:12→21:18)
[2019-01-14] MEDS: SOLU-Medrol IV SCH (09:13)
--- NOTE | 2019-01-14 09:45 | Progress Note ---
Subjective Interval history: Patient was seen today for follow-up on multiple renal related issues Resting comfortably in bed He has large amount of fluid on his desk Patient Danish speaking son is at the bedside Trans tubular potassium gradient only 2 Vitals labs intake output medications were reviewed Social history: Reviewed Allergies: Reviewed Family history: Reviewed Physical examination HEENT: Oral mucosa moist no pallor or icterus Neck: Supple no JVD Chest: Clear to auscultation anteriorly CVS: Regular rate and rhythm S1 and S2 heard Abdomen: Soft nontender no suprapubic masses no organomegaly appreciable Extremity: Dry skin less than 1+ peripheral edema Musculoskeletal: No joint effusion noted in knees and ankle Neurological: Alert awake Dermatology: No petechial rashes Psychiatry: No evidence of any agitation and aggression noted Assessment and plan; Hyponatremia with hyperkalemia, patient trans tubular potassium gradient is only 2, and hence a cautious trial of fludrocortisone can be given with close monitoring of sodium level Patient has large amount of fluid on the table discussed with his son to restrict her fluid Ejection fraction normal mild diastolic dysfunction Hold diuretic especially avoid hydrochlorothiazide Avoid PPI due to hyponatremia Pepcid is okay We'll continue to follow and make recommendation from renal standpoint Objective - Vital Signs Vital signs: Vital Signs - 12hr 01/13/19 01/13/19 01/14/19 22:47 23:09 03:33 Temperature 98.3 F 97.9 F Pulse Rate 77 82 Respiratory 18 20 Rate Blood Pressure 134/88 132/89 O2 Sat by Pulse 99 99 95 Oximetry 01/14/19 07:48 Temperature Pulse Rate 84 Respiratory Rate Blood Pressure 130/85 O2 Sat by Pulse 97 Oximetry - Lab 01/14/19 04:24 01/15/19 05:30 Most recent lab results Calcium 9.6 mg/dL (8.4-10.2) 01/14/19 04:24 Medications & Allergies - Medications Allergies/Adverse Reactions: Allergies No Known Allergies Allergy (Verified 09/24/15 12:37) Home Medications: Home Medications Medication Instructions Recorded Confirmed Last Taken Type Acetaminophen [Acetaminophen TAB] 650 mg PO Q4H PRN #30 tablet 09/30/15 01/07/19 Unknown Rx Sulfamethoxazole/Trimethoprim 1 each PO DAILY #30 tablet 09/30/15 01/07/19 Unknown Rx [Bactrim DS TAB] Warfarin [Coumadin] 5 mg PO QHS #30 tablet 10/01/15 01/07/19 Unknown Rx Sulfamethoxazole/Trimethoprim 1 each PO QDAY 30 Days #30 tablet 01/13/19 Unknown Rx [Bactrim DS TAB] Sulfamethoxazole/Trimethoprim 2 each PO Q8H 14 Days #84 tablet 01/13/19 Unknown Rx [Bactrim DS TAB] Active Medications: Generic Name Dose Route Start Last Admin Trade Name Freq PRN Reason Stop Dose Admin Acetaminophen 650 mg 01/06/19 10:07 Tylenol PO Q4H PRN Pain MILD(1-3)/Fever >100.5/BOOTHE Acetaminophen/Hydrocodone Bitart 2 each 01/06/19 10:07 01/12/19 05:34 [place] 5/325 PO 2 each Q6H PRN Administration Pain, Moderate (4-6) Albuterol 2.5 mg 01/12/19 01:23 Proventil IH Q3HRT PRN Shortness Of Breath Enoxaparin Sodium 40 mg 01/06/19 22:00 01/13/19 22:35 Lovenox SUB-Q 40 mg QDAY@2200 DIOGENES Administration Famotidine 10 mg 01/06/19 22:00 01/14/19 09:12 Pepcid PO 10 mg BID DIOGENES Administration Fluconazole 200 mg 01/06/19 14:00 01/14/19 09:12 Diflucan PO 200 mg QDAY DIOGENES Administration Guaifenesin 1,200 mg 01/07/19 10:00 01/14/19 09:12 Mucinex Er PO 1,200 mg BID DIOGENES Administration Hydralazine HCl 5 mg 01/06/19 10:07 Apresoline IV Q30MIN PRN Hypertension Insulin Human Regular 0 units 01/09/19 22:00 01/14/19 07:59 Humulin R SUB-Q Not Given ACHS DIOGENES Protocol Methylprednisolone Sodium Succinate 40 mg 01/08/19 13:00 01/14/19 09:13 Solu-Medrol IV 40 mg Q24HR DIOGENES Administration Ondansetron HCl 4 mg 01/06/19 10:07 01/12/19 05:34 Zofran IV 4 mg Q8H PRN Administration N/V unrelieved by James Senna 8.6 mg 01/06/19 22:00 01/14/19 09:12 Senokot PO 8.6 mg Q12HR DIOGENES Administration Sodium Bicarbonate 1,300 mg 01/12/19 22:00 01/14/19 09:12 Sodium Bicarbonate PO 1,300 mg BID DIOGENES Administration Trimethoprim/Sulfamethoxazole 2 each 01/06/19 14:00 01/14/19 05:39 Bactrim Ds PO 2 each Q8HR DIOGNEES Administration
[2019-01-14] MEDS: FLORINEF PO SCH (11:19)
--- NOTE | 2019-01-14 11:19 | Progress Note ---
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 Acute hypoxic respiratory failure due to pneumonia - monitor patient - Will provide scheduled nebulizer breathing treatment and as needed - follow sputum culture, chest x-ray showed bilateral pneumonia - Provide supplemental oxygen to keep oxygen saturation above 92% - less shortness of breath - Now on Oxygen by NC at 2l/min with Oxygen sat of 98% B/L PNA with sepsis - Obtained blood culture, sputum culture - ID consulted,following cont iv abx per ID recommendation h/o HIV dx on Jun 2015, not on ARV since then - ID Physician following follow-up CD4, VL, HIV genotype, cryptococcal serum antigen, HBV and HCV serology, RPR -HIV RNA copies/ml 1,720,000 Hyponatremia, Improving after Tolvaptan 15mg po x 2 doses given on 01/10 and 01/13 Na 127 today Nephrology following Noncompliance, counseled Oral candidiasis, started on fluconazole DVT prophylaxis, Lovenox Discussed with case management. May need home Oxygen History Interval history: Less shortness of breath No fever Hospitalist Physical - Physical exam Narrative exam: Gen: Not in acute distress, lying in bed, On Oxygen by NC HEENT: Normocephalic, atraumatic Neck: supple, no JVD Heart: S1 and S2 reg, no murmurs, rubs or gallop Lungs: Crackles left base, no wheeze Abd: soft, non tender, non distended, normal BS Ext: No edema, no clubbing, no cyanosis, Neuro: Awake,alert, moves all ext, non focal Psych:Normal mood - Constitutional Vitals: Temp Pulse Resp BP Pulse Ox 97.9 F 84 20 130/85 97 01/14/19 03:33 01/14/19 07:48 01/14/19 09:45 01/14/19 07:48 01/14/19 07:48 Results - Labs CBC & Chem 7: 01/14/19 04:24 01/14/19 04:24 Labs: Laboratory Last Values WBC 10.3 K/mm3 (4.5-11.0) 01/14/19 04:24 RBC 4.29 M/mm3 (3.65-5.03) 01/14/19 04:24 Hgb 12.9 gm/dl (11.8-15.2) 01/14/19 04:24 Hct 37.9 % (35.5-45.6) 01/14/19 04:24 MCV 88 fl (84-94) 01/14/19 04:24 MCH 30 pg (28-32) 01/14/19 04:24 MCHC 34 % (32-34) 01/14/19 04:24 RDW 13.8 % (13.2-15.2) 01/14/19 04:24 Plt Count 388 K/mm3 (140-440) 01/14/19 04:24 Lymph % (Auto) 2.7 % (13.4-35.0) L 01/06/19 06:56 Nash % (Auto) 8.0 % (0.0-7.3) H 01/06/19 06:56 Eos % (Auto) 2.3 % (0.0-4.3) 01/06/19 06:56 Baso % (Auto) 0.3 % (0.0-1.8) 01/06/19 06:56 Lymph # 0.3 K/mm3 (1.2-5.4) L 01/06/19 06:56 Nash # 0.9 K/mm3 (0.0-0.8) H 01/06/19 06:56 Eos # 0.3 K/mm3 (0.0-0.4) 01/06/19 06:56 Baso # 0.0 K/mm3 (0.0-0.1) 01/06/19 06:56 Add Manual Diff Complete 01/10/19 00:18 Total Counted 100 01/10/19 00:18 Seg Neutrophils % Label Sewer 01/10/19 00:18 Seg Neuts % (Manual) 96.0 % (40.0-70.0) H 01/10/19 00:18 0 % 01/10/19 00:18 2.0 % (13.4-35.0) L 01/10/19 00:18 Reactive Lymphs % (Man) 0 % 01/10/19 00:18 2.0 % (0.0-7.3) 01/10/19 00:18 0 % (0.0-4.3) 01/10/19 00:18 0 % (0.0-1.8) 01/10/19 00:18 0 % 01/10/19 00:18 0 % 01/10/19 00:18 0 % 01/10/19 00:18 0 % 01/10/19 00:18 Nucleated RBC % Not Reportable 01/10/19 00:18 Seg Neutrophils # 9.7 K/mm3 (1.8-7.7) H 01/06/19 06:56 Seg Neutrophils # Man 13.2 K/mm3 (1.8-7.7) H 01/10/19 00:18 Band Neutrophils # 0.0 K/mm3 01/10/19 00:18 0.3 K/mm3 (1.2-5.4) L 01/10/19 00:18 Abs React Lymphs (Man) 0.0 K/mm3 01/10/19 00:18 0.3 K/mm3 (0.0-0.8) 01/10/19 00:18 0.0 K/mm3 (0.0-0.4) 01/10/19 00:18 0.0 K/mm3 (0.0-0.1) 01/10/19 00:18 0.0 K/mm3 01/10/19 00:18 0.0 K/mm3 01/10/19 00:18 0.0 K/mm3 01/10/19 00:18 Blast Cells # 0.0 K/mm3 01/10/19 00:18 WBC Morphology Not Reportable 01/10/19 00:18 Hypersegmented Neuts Not Reportable 01/10/19 00:18 Hyposegmented Neuts Not Reportable 01/10/19 00:18 Hypogranular Neuts Not Reportable 01/10/19 00:18 Not Reportable 01/10/19 00:18 Not Reportable 01/10/19 00:18 Not Reportable 01/10/19 00:18 Not Reportable 01/10/19 00:18 Not Reportable 01/10/19 00:18 Not Reportable 01/10/19 00:18 Consistent w auto 01/10/19 00:18 Not Reportable 01/10/19 00:18 Plt Clumps, EDTA Not Reportable 01/10/19 00:18 Not Reportable 01/10/19 00:18 Not Reportable 01/10/19 00:18 Not Reportable 01/10/19 00:18 Plt Morphology Comment Not Reportable 01/10/19 00:18 RBC Morphology Normal 01/10/19 00:18 Dimorphic RBCs Not Reportable 01/10/19 00:18 Not Reportable 01/10/19 00:18 Not Reportable 01/10/19 00:18 Not Reportable 01/10/19 00:18 Not Reportable 01/10/19 00:18 Not Reportable 01/10/19 00:18 Not Reportable 01/10/19 00:18 Not Reportable 01/10/19 00:18 Not Reportable 01/10/19 00:18 Not Reportable 01/10/19 00:18 Not Reportable 01/10/19 00:18 Not Reportable 01/10/19 00:18 Not Reportable 01/10/19 00:18 Not Reportable 01/10/19 00:18 Not Reportable 01/10/19 00:18 Not Reportable 01/10/19 00:18 Not Reportable 01/10/19 00:18 Not Reportable 01/10/19 00:18 Not Reportable 01/10/19 00:18 Not Reportable 01/10/19 00:18 Acanthocytes (Spur) Not Reportable 01/10/19 00:18 Rouleaux Not Reportable 01/10/19 00:18 Not Reportable 01/10/19 00:18 Not Reportable 01/10/19 00:18 Not Reportable 01/10/19 00:18 Not Reportable 01/10/19 00:18 Hem Pathologist Commnt No 01/10/19 00:18 PT 13.9 Sec. (12.2-14.9) 01/06/19 06:56 INR 1.10 (0.87-1.13) 01/06/19 06:56 APTT 34.9 Sec. (24.2-36.6) 01/06/19 06:56 POC ABG pH 7.415 (7.35-7.45) 01/08/19 17:36 POC ABG pO2 61 (80-105) L 01/08/19 17:36 POC ABG HCO3 15.0 (22-26 mml/L) 01/08/19 17:36 POC ABG Total CO2 16 (23-27mmol/L) 01/08/19 17:36 POC ABG O2 Sat 92 01/08/19 17:36 POC ABG Base Excess -10 ((-2) - (+3)mmol/L) 01/08/19 17:36 VBG pH 7.459 (7.320-7.420) H 01/06/19 06:56 40 % 01/08/19 17:36 Sodium 127 mmol/L (137-145) L 01/14/19 04:24 Potassium 5.0 mmol/L (3.6-5.0) 01/14/19 04:24 Chloride 95.4 mmol/L (98-107) L 01/14/19 04:24 Carbon Dioxide 19 mmol/L (22-30) L 01/14/19 04:24 18 mmol/L 01/14/19 04:24 BUN 36 mg/dL (9-20) H 01/14/19 04:24 1.2 mg/dL (0.8-1.5) 01/14/19 04:24 Estimated GFR > 60 ml/min 01/14/19 04:24 30 % 01/14/19 04:24 Glucose 89 mg/dL (75-100) 01/14/19 04:24 POC Glucose 89 (70-105) 01/14/19 07:54 288 Mosm/kg 01/12/19 14:57 Lactic Acid 1.10 mmol/L (0.7-2.0) 01/06/19 09:43 Calcium 9.6 mg/dL (8.4-10.2) 01/14/19 04:24 0.40 mg/dL (0.1-1.2) 01/06/19 06:56 < 0.2 mg/dL (0-0.2) 01/06/19 06:56 AST 27 units/L (5-40) 01/06/19 06:56 ALT 14 units/L (7-56) 01/06/19 06:56 65 units/L (35-129) 01/06/19 06:56 < 0.010 ng/mL (0.00-0.029) 01/06/19 12:15 NT-Pro-B Natriuret Pep 1357 pg/mL (0-900) H 01/08/19 06:50 7.2 g/dL (6.3-8.2) 01/06/19 06:56 2.4 g/dL (3.9-5) L 01/06/19 06:56 0.5 % 01/06/19 06:56 TSH 0.118 mlU/mL (0.270-4.200) L 01/10/19 10:36 Free T4 1.39 ng/dL (0.76-1.46) 01/10/19 21:44 11.7 mcg/dL () 01/10/19 10:36 Yellow (Yellow) 01/10/19 Unknown Cloudy (Clear) 01/10/19 Unknown 7.0 (5.0-7.0) 01/10/19 Unknown Ur Specific [place] 1.016 (1.003-1.030) 01/10/19 Unknown <15 mg/dl mg/dL (Negative) 01/10/19 Unknown Neg mg/dL (Negative) 01/10/19 Unknown Neg mg/dL (Negative) 01/10/19 Unknown Neg (Negative) 01/10/19 Unknown Neg (Negative) 01/10/19 Unknown Neg (Negative) 01/10/19 Unknown < 2.0 mg/dL (<2.0) 01/10/19 Unknown Ur Leukocyte Esterase Neg (Negative) 01/10/19 Unknown 4.0 /HPF (0.0-6.0) 01/10/19 Unknown 1.0 /HPF (0.0-6.0) 01/10/19 Unknown 1+ /HPF (Negative) 01/10/19 Unknown Few /HPF 01/06/19 08:09 500 Mosm/kg 01/12/19 19:30 13.43 mmol/L 01/12/19 19:30 RPR Nonreactive (Nonreactive) 01/06/19 13:32 Hepatitis A IgM Ab Non-reactive (NonReactive) 01/06/19 13:32 Hep Bs Antigen Non-reactive (Negative) 01/06/19 13:32 Hep B Core IgM Ab Non-reactive (NonReactive) 01/06/19 13:32 Non-reactive (NonReactive) 01/06/19 13:32 HIV-1 RNA PCR copies/ml [id number] Copies/mL H 01/06/19 13:32 6.24 Log cps/mL H 01/06/19 13:32 Active Medications - Current Medications Current Medications: Generic Name Dose Route Start Last Admin Trade Name Freq PRN Reason Stop Dose Admin Acetaminophen 650 mg 01/06/19 10:07 Tylenol PO Q4H PRN Pain MILD(1-3)/Fever >100.5/BOOTHE Acetaminophen/Hydrocodone Bitart 2 each 01/06/19 10:07 01/12/19 05:34 [place] 5/325 PO 2 each Q6H PRN Administration Pain, Moderate (4-6) Albuterol 2.5 mg 01/12/19 01:23 Proventil IH Q3HRT PRN Shortness Of Breath Enoxaparin Sodium 40 mg 01/06/19 22:00 01/13/19 22:35 Lovenox SUB-Q 40 mg QDAY@2200 DIOGENES Administration Famotidine 10 mg 01/06/19 22:00 01/14/19 09:12 Pepcid PO 10 mg BID DIOGENES Administration Fluconazole 200 mg 01/06/19 14:00 01/14/19 09:12 Diflucan PO 200 mg QDAY DIOGENES Administration Fludrocortisone Acetate 0.1 mg 01/14/19 11:00 Florinef PO QDAY DIOGENES Guaifenesin 1,200 mg 01/07/19 10:00 01/14/19 09:12 Mucinex Er PO 1,200 mg BID DIOGENES Administration Hydralazine HCl 5 mg 01/06/19 10:07 Apresoline IV Q30MIN PRN Hypertension Insulin Human Regular 0 units 01/09/19 22:00 01/14/19 07:59 Humulin R SUB-Q Not Given ACHS [facility] Protocol Methylprednisolone Sodium Succinate 40 mg 01/08/19 13:00 01/14/19 09:13 Solu-Medrol IV 40 mg Q24HR DIOGENES Administration Ondansetron HCl 4 mg 01/06/19 10:07 01/12/19 05:34 Zofran IV 4 mg Q8H PRN Administration N/V unrelieved by James Senna 8.6 mg 01/06/19 22:00 01/14/19 09:12 Senokot PO 8.6 mg Q12HR DIOGENES Administration Sodium Bicarbonate 1,300 mg 01/12/19 22:00 01/14/19 09:12 Sodium Bicarbonate PO 1,300 mg BID DIOGENES Administration Trimethoprim/Sulfamethoxazole 2 each 01/06/19 14:00 01/14/19 05:39 Bactrim Ds PO 2 each Q8HR DIOGENES Administration Nutrition/Malnutrition Assess - Dietary Evaluation Nutrition/Malnutrition Findings: Nutrition Notes Start: 01/07/19 12:44 Freq: Status: Active Protocol: Document 01/12/19 14:26 RM (Rec: 01/12/19 14:35 RM [id number]) Nutrition Notes Initial or Follow up Reassessment Current Diagnosis Sepsis Other Pertinent Diagnosis Abdominal pain, Bilat pneu, HIV, Hyponatremia, Noncompliance Current Diet Regular Labs/Tests Reviewed Pertinent Medications Lasverónica Solu-Medrol Height 5 ft 6 in Weight 59.6 kg [place] Body Weight (kg) 64.54 BMI 21.2 Subjective/Other Information Pt stated that he has been eating bites of [place] food that has been brought in and drinks the Ensure Enlive. Noted various partially eaten foods and half drunk Ensure Enlive on bedside table. Denied N/V. Percent of energy/protein needs met: 10%/15% Burn Absent Trauma Absent #2 Nutrition Diagnosis Inadequate oral intake Diagnosis Progress(for reassessment Continues documentation) Is patient on ventilator? No Is Patient Ambulatory and/or Out of Bed Yes REE-([facility]-ambulatory/OOB) [ 1792.375 [id number]] Calculation Used for Recommendations [facility] Additional Notes Pro needs 1-1.2g/k-77g/ day Fluid needs 1ml/kcal Nutrition Intervention Change Diet Order: Continue Add Supplement/Snack (indicate name/kcal Ensure Enlive Chocolate 1 /protein ) daily Provides kCal: 350 Provides Protein (gm) 20 Goal #1 PO intake of meals plus ONS to meet at least 75% energy and pro needs Anticipated Discharge Needs: Unable to determine at this time Follow-Up By: 01/15/19 Additional Comments Follow for PO and ONS intakes
--- NOTE | 2019-01-14 11:20 | Progress Note ---
Assessment and Plan - Patient Problems (1) Bilateral pneumonia Current Visit: Yes Status: Acute (2) HIV (human immunodeficiency virus infection) Current Visit: Yes Status: Acute (3) Hyponatremia Current Visit: Yes Status: Acute (4) Hypoxia Current Visit: Yes Status: Acute (5) Acute liver failure without hepatic coma Current Visit: No Status: Acute (6) DVT (deep venous thrombosis) Current Visit: No Status: Acute Qualifiers: DVT location: non-extremity vein Chronicity: acute Qualified Code(s): I82.90 - Acute embolism and thrombosis of unspecified vein (7) Fever Current Visit: No Status: Acute Qualifiers: Fever type: unspecified Qualified Code(s): R50.9 - Fever, unspecified Subjective Interval history: less sob Objective Vital Signs - 12hr 01/14/19 01/14/19 01/14/19 03:33 07:48 09:45 Temperature 97.9 F Pulse Rate 82 84 Respiratory 20 20 Rate Blood Pressure 132/89 130/85 O2 Sat by Pulse 95 97 Oximetry Constitutional: alert, appears uncomfortable Eyes: non-icteric ENT: oropharynx moist Neck: supple, no JVD Effort: very labored Ascultation: Bilateral: rales Percussion: Bilateral: not dull Cardiovascular: regular rate and rhythm (sinus tach) Gastrointestinal: normoactive bowel sounds, soft, non-tender Neurologic: normal mental status, non-focal exam CBC and BMP: 01/14/19 04:24 01/14/19 04:24 ABG, PT/INR, D-dimer: ABG POC ABG pH 7.415 (7.35-7.45) 01/08/19 17:36 POC ABG pO2 61 (80-105) L 01/08/19 17:36 POC ABG HCO3 15.0 (22-26 mml/L) 01/08/19 17:36 POC ABG Total CO2 16 (23-27mmol/L) 01/08/19 17:36 POC ABG O2 Sat 92 01/08/19 17:36 PT/INR, D-dimer PT 13.9 Sec. (12.2-14.9) 01/06/19 06:56 INR 1.10 (0.87-1.13) 01/06/19 06:56 Abnormal lab findings: Abnormal Labs 06/01/06/19 01/06/19 06:56 06:56 06:56 WBC 11.2 H RBC 3.50 L Hgb 10.5 L Hct 30.8 L MCHC Lymph % (Auto) 2.7 L Burt % (Auto) 8.0 H Lymph # 0.3 L Burt # 0.9 H Seg Neutrophils % 86.7 H Seg Neuts % (Manual) Lymphocytes % (Manual) Seg Neutrophils # 9.7 H Seg Neutrophils # Man Lymphocytes # (Manual) POC ABG pH POC ABG pO2 VBG pH 7.459 H Sodium 130 L Potassium Chloride Carbon Dioxide 18 L BUN Creatinine 0.7 L Glucose 119 H POC Glucose Calcium 8.1 L NT-Pro-B Natriuret Pep Albumin 2.4 L TSH HIV-1 RNA PCR copies/ml HIV-1 RNA (PCR) log 01/06/19 01/06/19 01/07/19 06:59 13:32 08:39 WBC RBC Hgb Hct MCHC Lymph % (Auto) Burt % (Auto) Lymph # Burt # Seg Neutrophils % Seg Neuts % (Manual) Lymphocytes % (Manual) Seg Neutrophils # Seg Neutrophils # Man Lymphocytes # (Manual) POC ABG pH 7.474 H POC ABG pO2 58 L VBG pH Sodium Potassium Chloride Carbon Dioxide BUN Creatinine Glucose POC Glucose 132 H Calcium NT-Pro-B Natriuret Pep Albumin TSH HIV-1 RNA PCR copies/ml [id number] H HIV-1 RNA (PCR) log 6.24 H 01/07/19 01/07/19 01/08/19 11:17 16:12 06:50 WBC 19.2 H RBC Hgb 11.2 L Hct 33.1 L MCHC Lymph % (Auto) Burt % (Auto) Lymph # Burt # Seg Neutrophils % Seg Neuts % (Manual) 98.0 H Lymphocytes % (Manual) 1.0 L Seg Neutrophils # Seg Neutrophils # Man 18.8 H Lymphocytes # (Manual) 0.2 L POC ABG pH POC ABG pO2 VBG pH Sodium Potassium Chloride Carbon Dioxide BUN Creatinine Glucose POC Glucose 219 H 148 H Calcium NT-Pro-B Natriuret Pep Albumin TSH HIV-1 RNA PCR copies/ml HIV-1 RNA (PCR) log 01/08/19 01/08/19 01/08/19 06:50 06:50 17:36 WBC RBC Hgb Hct MCHC Lymph % (Auto) Burt % (Auto) Lymph # Burt # Seg Neutrophils % Seg Neuts % (Manual) Lymphocytes % (Manual) Seg Neutrophils # Seg Neutrophils # Man Lymphocytes # (Manual) POC ABG pH POC ABG pO2 61 L VBG pH Sodium 134 L Potassium Chloride Carbon Dioxide 15 L BUN Creatinine Glucose POC Glucose Calcium 7.8 L NT-Pro-B Natriuret Pep 1357 H Albumin TSH HIV-1 RNA PCR copies/ml HIV-1 RNA (PCR) log 01/08/19 01/09/19 01/09/19 21:34 07:34 12:03 WBC RBC Hgb Hct MCHC Lymph % (Auto) Burt % (Auto) Lymph # Burt # Seg Neutrophils % Seg Neuts % (Manual) Lymphocytes % (Manual) Seg Neutrophils # Seg Neutrophils # Man Lymphocytes # (Manual) POC ABG pH POC ABG pO2 VBG pH Sodium Potassium Chloride Carbon Dioxide BUN Creatinine Glucose POC Glucose 208 H 168 H 176 H Calcium NT-Pro-B Natriuret Pep Albumin TSH HIV-1 RNA PCR copies/ml HIV-1 RNA (PCR) log 01/09/19 01/09/19 01/10/19 16:08 20:58 00:18 WBC 13.8 H RBC Hgb 11.6 L Hct 34.7 L MCHC Lymph % (Auto) Burt % (Auto) Lymph # Burt # Seg Neutrophils % Seg Neuts % (Manual) 96.0 H Lymphocytes % (Manual) 2.0 L Seg Neutrophils # Seg Neutrophils # Man 13.2 H Lymphocytes # (Manual) 0.3 L POC ABG pH POC ABG pO2 VBG pH Sodium Potassium Chloride Carbon Dioxide BUN Creatinine Glucose POC Glucose 232 H 174 H Calcium NT-Pro-B Natriuret Pep Albumin TSH HIV-1 RNA PCR copies/ml HIV-1 RNA (PCR) log 01/10/19 01/10/19 01/10/19 04:44 07:34 10:36 WBC RBC Hgb Hct MCHC Lymph % (Auto) Burt % (Auto) Lymph # Burt # Seg Neutrophils % Seg Neuts % (Manual) Lymphocytes % (Manual) Seg Neutrophils # Seg Neutrophils # Man Lymphocytes # (Manual) POC ABG pH POC ABG pO2 VBG pH Sodium 125 L D Potassium Chloride 91.9 L Carbon Dioxide 16 L BUN 26 H Creatinine Glucose 168 H POC Glucose 143 H Calcium NT-Pro-B Natriuret Pep Albumin TSH 0.118 L HIV-1 RNA PCR copies/ml HIV-1 RNA (PCR) log 01/10/19 01/10/19 01/10/19 11:22 15:15 17:28 WBC RBC Hgb Hct MCHC Lymph % (Auto) Burt % (Auto) Lymph # Burt # Seg Neutrophils % Seg Neuts % (Manual) Lymphocytes % (Manual) Seg Neutrophils # Seg Neutrophils # Man Lymphocytes # (Manual) POC ABG pH POC ABG pO2 VBG pH Sodium 120 L Potassium 5.1 H D Chloride 89.6 L Carbon Dioxide 14 L BUN 22 H Creatinine Glucose 171 H POC Glucose 170 H 168 H Calcium NT-Pro-B Natriuret Pep Albumin TSH HIV-1 RNA PCR copies/ml HIV-1 RNA (PCR) log 01/10/19 01/11/19 01/11/19 21:01 04:27 04:27 WBC 13.6 H RBC Hgb Hct 34.6 L MCHC 35 H Lymph % (Auto) Burt % (Auto) Lymph # Burt # Seg Neutrophils % Seg Neuts % (Manual) Lymphocytes % (Manual) Seg Neutrophils # Seg Neutrophils # Man Lymphocytes # (Manual) POC ABG pH POC ABG pO2 VBG pH Sodium 134 L D Potassium Chloride Carbon Dioxide 20 L BUN 21 H Creatinine Glucose 115 H POC Glucose 165 H Calcium NT-Pro-B Natriuret Pep Albumin TSH HIV-1 RNA PCR copies/ml HIV-1 RNA (PCR) log 01/11/19 01/11/19 01/11/19 08:32 11:33 17:21 WBC RBC Hgb Hct MCHC Lymph % (Auto) Burt % (Auto) Lymph # Burt # Seg Neutrophils % Seg Neuts % (Manual) Lymphocytes % (Manual) Seg Neutrophils # Seg Neutrophils # Man Lymphocytes # (Manual) POC ABG pH POC ABG pO2 VBG pH Sodium Potassium Chloride Carbon Dioxide BUN Creatinine Glucose POC Glucose 106 H 188 H 173 H Calcium NT-Pro-B Natriuret Pep Albumin TSH HIV-1 RNA PCR copies/ml HIV-1 RNA (PCR) log 01/11/19 01/12/19 01/12/19 20:50 04:23 04:23 WBC RBC Hgb 11.7 L Hct 34.6 L MCHC Lymph % (Auto) Burt % (Auto) Lymph # Burt # Seg Neutrophils % Seg Neuts % (Manual) Lymphocytes % (Manual) Seg Neutrophils # Seg Neutrophils # Man Lymphocytes # (Manual) POC ABG pH POC ABG pO2 VBG pH Sodium 130 L Potassium Chloride Carbon Dioxide 17 L BUN 23 H Creatinine Glucose 104 H POC Glucose 124 H Calcium NT-Pro-B Natriuret Pep Albumin TSH HIV-1 RNA PCR copies/ml HIV-1 RNA (PCR) log 01/12/19 01/12/19 01/12/19 13:04 16:45 21:46 WBC RBC Hgb Hct MCHC Lymph % (Auto) Burt % (Auto) Lymph # Burt # Seg Neutrophils % Seg Neuts % (Manual) Lymphocytes % (Manual) Seg Neutrophils # Seg Neutrophils # Man Lymphocytes # (Manual) POC ABG pH POC ABG pO2 VBG pH Sodium Potassium Chloride Carbon Dioxide BUN Creatinine Glucose POC Glucose 160 H 170 H 142 H Calcium NT-Pro-B Natriuret Pep Albumin TSH HIV-1 RNA PCR copies/ml HIV-1 RNA (PCR) log 01/13/19 01/13/19 01/13/19 04:13 04:13 16:02 WBC RBC Hgb Hct MCHC 35 H Lymph % (Auto) Burt % (Auto) Lymph # Burt # Seg Neutrophils % Seg Neuts % (Manual) Lymphocytes % (Manual) Seg Neutrophils # Seg Neutrophils # Man Lymphocytes # (Manual) POC ABG pH POC ABG pO2 VBG pH Sodium 126 L Potassium Chloride 93.1 L Carbon Dioxide 20 L BUN 31 H Creatinine Glucose POC Glucose 143 H Calcium NT-Pro-B Natriuret Pep Albumin TSH HIV-1 RNA PCR copies/ml HIV-1 RNA (PCR) log 01/13/19 01/14/19 20:11 04:24 WBC RBC Hgb Hct MCHC Lymph % (Auto) Burt % (Auto) Lymph # Burt # Seg Neutrophils % Seg Neuts % (Manual) Lymphocytes % (Manual) Seg Neutrophils # Seg Neutrophils # Man Lymphocytes # (Manual) POC ABG pH POC ABG pO2 VBG pH Sodium 127 L Potassium Chloride 95.4 L Carbon Dioxide 19 L BUN 36 H Creatinine Glucose POC Glucose 176 H Calcium NT-Pro-B Natriuret Pep Albumin TSH HIV-1 RNA PCR copies/ml HIV-1 RNA (PCR) log
[2019-01-14] MEDS: LOVENOX SUB-Q SCH (21:18)
[2019-01-15] MEDS: BACTRIM DS PO SCH ×3 (05:06→22:05)
[2019-01-15 06:11] LABS: BUN/Creatinine Ratio 35; Blood Urea Nitrogen 42 mg/dL (9-20); Calcium 9.4 mg/dL (8.4-10.2); Hemolysis Index 7
[2019-01-15] MEDS: HumuLIN R SUB-Q SCH ×4 (07:52→22:06)
[2019-01-15] MEDS ORDERED: KIONEX PO ONE (08:22)
[2019-01-15] MEDS: PEPCID PO SCH ×2 (09:29→22:05)
[2019-01-15] MEDS: SOLU-Medrol IV SCH (09:29)
[2019-01-15] MEDS: SODIUM BICARBONATE PO SCH ×2 (09:29→22:05)
[2019-01-15] MEDS: MUCINEX ER PO SCH ×2 (09:30→22:05)
[2019-01-15] MEDS: DIFLUCAN PO SCH (09:30)
[2019-01-15] MEDS: SENOKOT PO SCH ×2 (09:30→22:05)
[2019-01-15] MEDS: FLORINEF PO SCH (09:30)
--- NOTE | 2019-01-15 09:42 | Progress Note ---
Assessment and Plan - Patient Problems (1) Bilateral pneumonia Current Visit: Yes Status: Acute (2) HIV (human immunodeficiency virus infection) Current Visit: Yes Status: Acute (3) Hyponatremia Current Visit: Yes Status: Acute (4) Hypoxia Current Visit: Yes Status: Acute (5) Acute liver failure without hepatic coma Current Visit: No Status: Acute (6) DVT (deep venous thrombosis) Current Visit: No Status: Acute Qualifiers: DVT location: non-extremity vein Chronicity: acute Qualified Code(s): I82.90 - Acute embolism and thrombosis of unspecified vein (7) Fever Current Visit: No Status: Acute Qualifiers: Fever type: unspecified Qualified Code(s): R50.9 - Fever, unspecified Subjective Interval history: no sob spoke w son PRATIK Objective Vital Signs - 12hr 01/15/19 01/15/19 01/15/19 00:39 01:06 04:00 Temperature 98.2 F Pulse Rate 78 80 Respiratory 18 Rate Blood Pressure 146/95 O2 Sat by Pulse 97 98 Oximetry 01/15/19 01/15/19 05:18 07:33 Temperature 98.0 F 99.0 F Pulse Rate 81 Respiratory 18 18 Rate Blood Pressure 140/94 138/91 O2 Sat by Pulse 99 Oximetry Constitutional: alert, appears uncomfortable Eyes: non-icteric ENT: oropharynx moist Neck: supple, no JVD Effort: very labored Ascultation: Bilateral: rales Percussion: Bilateral: not dull Cardiovascular: regular rate and rhythm (sinus tach) Gastrointestinal: normoactive bowel sounds, soft, non-tender Neurologic: normal mental status, non-focal exam CBC and BMP: 01/14/19 04:24 01/15/19 05:30 ABG, PT/INR, D-dimer: ABG POC ABG pH 7.415 (7.35-7.45) 01/08/19 17:36 POC ABG pO2 61 (80-105) L 01/08/19 17:36 POC ABG HCO3 15.0 (22-26 mml/L) 01/08/19 17:36 POC ABG Total CO2 16 (23-27mmol/L) 01/08/19 17:36 POC ABG O2 Sat 92 01/08/19 17:36 PT/INR, D-dimer PT 13.9 Sec. (12.2-14.9) 01/06/19 06:56 INR 1.10 (0.87-1.13) 01/06/19 06:56 Abnormal lab findings: Abnormal Labs 01/06/19 01/06/19 01/06/19 06:56 06:56 06:56 WBC 11.2 H RBC 3.50 L Hgb 10.5 L Hct 30.8 L MCHC Lymph % (Auto) 2.7 L [place] % (Auto) 8.0 H Lymph # 0.3 L [place] # 0.9 H Seg Neutrophils % 86.7 H Seg Neuts % (Manual) Lymphocytes % (Manual) Seg Neutrophils # 9.7 H Seg Neutrophils # Man Lymphocytes # (Manual) POC ABG pH POC ABG pO2 VBG pH 7.459 H Sodium 130 L Potassium Chloride Carbon Dioxide 18 L BUN Creatinine 0.7 L Glucose 119 H POC Glucose Calcium 8.1 L NT-Pro-B Natriuret Pep Albumin 2.4 L TSH HIV-1 RNA PCR copies/ml HIV-1 RNA (PCR) log 01/06/19 01/06/19 01/07/19 06:59 13:32 08:39 WBC RBC Hgb Hct MCHC Lymph % (Auto) [place] % (Auto) Lymph # [place] # Seg Neutrophils % Seg Neuts % (Manual) Lymphocytes % (Manual) Seg Neutrophils # Seg Neutrophils # Man Lymphocytes # (Manual) POC ABG pH 7.474 H POC ABG pO2 58 L VBG pH Sodium Potassium Chloride Carbon Dioxide BUN Creatinine Glucose POC Glucose 132 H Calcium NT-Pro-B Natriuret Pep Albumin TSH HIV-1 RNA PCR copies/ml 2643276 H HIV-1 RNA (PCR) log 6.24 H 01/07/19 01/07/19 01/08/19 11:17 16:12 06:50 WBC 19.2 H RBC Hgb 11.2 L Hct 33.1 L MCHC Lymph % (Auto) [place] % (Auto) Lymph # [place] # Seg Neutrophils % Seg Neuts % (Manual) 98.0 H Lymphocytes % (Manual) 1.0 L Seg Neutrophils # Seg Neutrophils # Man 18.8 H Lymphocytes # (Manual) 0.2 L POC ABG pH POC ABG pO2 VBG pH Sodium Potassium Chloride Carbon Dioxide BUN Creatinine Glucose POC Glucose 219 H 148 H Calcium NT-Pro-B Natriuret Pep Albumin TSH HIV-1 RNA PCR copies/ml HIV-1 RNA (PCR) log 01/08/19 01/08/19 01/08/19 06:50 06:50 17:36 WBC RBC Hgb Hct MCHC Lymph % (Auto) [place] % (Auto) Lymph # [place] # Seg Neutrophils % Seg Neuts % (Manual) Lymphocytes % (Manual) Seg Neutrophils # Seg Neutrophils # Man Lymphocytes # (Manual) POC ABG pH POC ABG pO2 61 L VBG pH Sodium 134 L Potassium Chloride Carbon Dioxide 15 L BUN Creatinine Glucose POC Glucose Calcium 7.8 L NT-Pro-B Natriuret Pep 1357 H Albumin TSH HIV-1 RNA PCR copies/ml HIV-1 RNA (PCR) log 01/08/19 01/09/19 01/09/19 21:34 07:34 12:03 WBC RBC Hgb Hct MCHC Lymph % (Auto) [place] % (Auto) Lymph # [place] # Seg Neutrophils % Seg Neuts % (Manual) Lymphocytes % (Manual) Seg Neutrophils # Seg Neutrophils # Man Lymphocytes # (Manual) POC ABG pH POC ABG pO2 VBG pH Sodium Potassium Chloride Carbon Dioxide BUN Creatinine Glucose POC Glucose 208 H 168 H 176 H Calcium NT-Pro-B Natriuret Pep Albumin TSH HIV-1 RNA PCR copies/ml HIV-1 RNA (PCR) log 01/09/19 01/09/19 01/10/19 16:08 20:58 00:18 WBC 13.8 H RBC Hgb 11.6 L Hct 34.7 L MCHC Lymph % (Auto) [place] % (Auto) Lymph # [place] # Seg Neutrophils % Seg Neuts % (Manual) 96.0 H Lymphocytes % (Manual) 2.0 L Seg Neutrophils # Seg Neutrophils # Man 13.2 H Lymphocytes # (Manual) 0.3 L POC ABG pH POC ABG pO2 VBG pH Sodium Potassium Chloride Carbon Dioxide BUN Creatinine Glucose POC Glucose 232 H 174 H Calcium NT-Pro-B Natriuret Pep Albumin TSH HIV-1 RNA PCR copies/ml HIV-1 RNA (PCR) log 01/10/19 01/10/19 01/10/19 04:44 07:34 10:36 WBC RBC Hgb Hct MCHC Lymph % (Auto) [place] % (Auto) Lymph # [place] # Seg Neutrophils % Seg Neuts % (Manual) Lymphocytes % (Manual) Seg Neutrophils # Seg Neutrophils # Man Lymphocytes # (Manual) POC ABG pH POC ABG pO2 VBG pH Sodium 125 L D Potassium Chloride 91.9 L Carbon Dioxide 16 L BUN 26 H Creatinine Glucose 168 H POC Glucose 143 H Calcium NT-Pro-B Natriuret Pep Albumin TSH 0.118 L HIV-1 RNA PCR copies/ml HIV-1 RNA (PCR) log 01/10/19 01/10/19 01/10/19 11:22 15:15 17:28 WBC RBC Hgb Hct MCHC Lymph % (Auto) [place] % (Auto) Lymph # [place] # Seg Neutrophils % Seg Neuts % (Manual) Lymphocytes % (Manual) Seg Neutrophils # Seg Neutrophils # Man Lymphocytes # (Manual) POC ABG pH POC ABG pO2 VBG pH Sodium 120 L Potassium 5.1 H D Chloride 89.6 L Carbon Dioxide 14 L BUN 22 H Creatinine Glucose 171 H POC Glucose 170 H 168 H Calcium NT-Pro-B Natriuret Pep Albumin TSH HIV-1 RNA PCR copies/ml HIV-1 RNA (PCR) log 01/10/19 01/11/19 01/11/19 21:01 04:27 04:27 WBC 13.6 H RBC Hgb Hct 34.6 L MCHC 35 H Lymph % (Auto) [place] % (Auto) Lymph # [place] # Seg Neutrophils % Seg Neuts % (Manual) Lymphocytes % (Manual) Seg Neutrophils # Seg Neutrophils # Man Lymphocytes # (Manual) POC ABG pH POC ABG pO2 VBG pH Sodium 134 L D Potassium Chloride Carbon Dioxide 20 L BUN 21 H Creatinine Glucose 115 H POC Glucose 165 H Calcium NT-Pro-B Natriuret Pep Albumin TSH HIV-1 RNA PCR copies/ml HIV-1 RNA (PCR) log 01/11/19 01/11/19 01/11/19 08:32 11:33 17:21 WBC RBC Hgb Hct MCHC Lymph % (Auto) [place] % (Auto) Lymph # [place] # Seg Neutrophils % Seg Neuts % (Manual) Lymphocytes % (Manual) Seg Neutrophils # Seg Neutrophils # Man Lymphocytes # (Manual) POC ABG pH POC ABG pO2 VBG pH Sodium Potassium Chloride Carbon Dioxide BUN Creatinine Glucose POC Glucose 106 H 188 H 173 H Calcium NT-Pro-B Natriuret Pep Albumin TSH HIV-1 RNA PCR copies/ml HIV-1 RNA (PCR) log 01/11/19 01/12/19 01/12/19 20:50 04:23 04:23 WBC RBC Hgb 11.7 L Hct 34.6 L MCHC Lymph % (Auto) [place] % (Auto) Lymph # [place] # Seg Neutrophils % Seg Neuts % (Manual) Lymphocytes % (Manual) Seg Neutrophils # Seg Neutrophils # Man Lymphocytes # (Manual) POC ABG pH POC ABG pO2 VBG pH Sodium 130 L Potassium Chloride Carbon Dioxide 17 L BUN 23 H Creatinine Glucose 104 H POC Glucose 124 H Calcium NT-Pro-B Natriuret Pep Albumin TSH HIV-1 RNA PCR copies/ml HIV-1 RNA (PCR) log 01/12/19 01/12/19 01/12/19 13:04 16:45 21:46 WBC RBC Hgb Hct MCHC Lymph % (Auto) [place] % (Auto) Lymph # [place] # Seg Neutrophils % Seg Neuts % (Manual) Lymphocytes % (Manual) Seg Neutrophils # Seg Neutrophils # Man Lymphocytes # (Manual) POC ABG pH POC ABG pO2 VBG pH Sodium Potassium Chloride Carbon Dioxide BUN Creatinine Glucose POC Glucose 160 H 170 H 142 H Calcium NT-Pro-B Natriuret Pep Albumin TSH HIV-1 RNA PCR copies/ml HIV-1 RNA (PCR) log 01/13/19 01/13/19 01/13/19 04:13 04:13 16:02 WBC RBC Hgb Hct MCHC 35 H Lymph % (Auto) [place] % (Auto) Lymph # [place] # Seg Neutrophils % Seg Neuts % (Manual) Lymphocytes % (Manual) Seg Neutrophils # Seg Neutrophils # Man Lymphocytes # (Manual) POC ABG pH POC ABG pO2 VBG pH Sodium 126 L Potassium Chloride 93.1 L Carbon Dioxide 20 L BUN 31 H Creatinine Glucose POC Glucose 143 H Calcium NT-Pro-B Natriuret Pep Albumin TSH HIV-1 RNA PCR copies/ml HIV-1 RNA (PCR) log 01/13/19 01/14/19 01/14/19 20:11 04:24 12:05 WBC RBC Hgb Hct MCHC Lymph % (Auto) [place] % (Auto) Lymph # [place] # Seg Neutrophils % Seg Neuts % (Manual) Lymphocytes % (Manual) Seg Neutrophils # Seg Neutrophils # Man Lymphocytes # (Manual) POC ABG pH POC ABG pO2 VBG pH Sodium 127 L Potassium Chloride 95.4 L Carbon Dioxide 19 L BUN 36 H Creatinine Glucose POC Glucose 176 H 174 H Calcium NT-Pro-B Natriuret Pep Albumin TSH HIV-1 RNA PCR copies/ml HIV-1 RNA (PCR) log 01/14/19 01/14/19 01/15/19 16:47 21:28 05:30 WBC RBC Hgb Hct MCHC Lymph % (Auto) [place] % (Auto) Lymph # [place] # Seg Neutrophils % Seg Neuts % (Manual) Lymphocytes % (Manual) Seg Neutrophils # Seg Neutrophils # Man Lymphocytes # (Manual) POC ABG pH POC ABG pO2 VBG pH Sodium 125 L Potassium 5.2 H Chloride 93.2 L Carbon Dioxide 19 L BUN 42 H Creatinine Glucose POC Glucose 235 H 170 H Calcium NT-Pro-B Natriuret Pep Albumin TSH HIV-1 RNA PCR copies/ml HIV-1 RNA (PCR) log
--- NOTE | 2019-01-15 09:46 | Progress Note ---
Subjective Interval history: Patient was seen today for follow-up on multiple renal related issues Resting comfortably in bed Has been drinking more fluid than required Contrast tubular potassium gradient only to Vitals labs intake output medications were reviewed Social history: Reviewed Allergies: Reviewed Family history: Reviewed Physical examination HEENT: Oral mucosa moist no pallor or icterus Neck: Supple no JVD Chest: Clear to auscultation anteriorly CVS: Regular rate and rhythm S1 and S2 heard Abdomen: Soft nontender no suprapubic masses no organomegaly appreciable Extremity: Dry skin less than 1+ peripheral edema Musculoskeletal: No joint effusion noted in knees and ankle Neurological: Alert awake Dermatology: No petechial rashes Psychiatry: No evidence of any agitation and aggression noted Assessment and plan; Patient has been drinking large amount of fluid, He needs to be maintained on strict fluid restriction no more than 800 mL per day Will start him on sodium tablets continue with fludrocortisone for now His osmolality was normal, thyroid function was normal Will order for urine sodium, as well as cortisol level Being treated for pneumonia, has HIV, liver disease Hyponatremia with hyperkalemia, patient trans tubular potassium gradient is only 2, and hence a cautious trial of fludrocortisone can be given with close monitoring of sodium level Ejection fraction normal mild diastolic dysfunction Hold diuretic especially avoid hydrochlorothiazide Avoid PPI due to hyponatremia Pepcid is okay We'll continue to follow and make recommendation from renal standpoint Objective - Vital Signs Vital signs: Vital Signs - 12hr 01/15/19 01/15/19 01/15/19 00:39 01:06 04:00 Temperature 98.2 F Pulse Rate 78 80 Respiratory 18 Rate Blood Pressure 146/95 O2 Sat by Pulse 97 98 Oximetry 01/15/19 01/15/19 05:18 07:33 Temperature 98.0 F 99.0 F Pulse Rate 81 Respiratory 18 18 Rate Blood Pressure 140/94 138/91 O2 Sat by Pulse 99 Oximetry - Lab 01/14/19 04:24 01/15/19 05:30 Most recent lab results Calcium 9.4 mg/dL (8.4-10.2) 01/15/19 05:30 Medications & Allergies - Medications Allergies/Adverse Reactions: Allergies No Known Allergies Allergy (Verified 09/24/15 12:37) Home Medications: Home Medications Medication Instructions Recorded Confirmed Last Taken Type Acetaminophen [Acetaminophen TAB] 650 mg PO Q4H PRN #30 tablet 09/30/15 01/07/19 Unknown Rx Sulfamethoxazole/Trimethoprim 1 each PO DAILY #30 tablet 09/30/15 01/07/19 Unknown Rx [Bactrim DS TAB] Warfarin [Coumadin] 5 mg PO QHS #30 tablet 10/01/15 01/07/19 Unknown Rx Sulfamethoxazole/Trimethoprim 1 each PO QDAY 30 Days #30 tablet 01/13/19 Unknown Rx [Bactrim DS TAB] Sulfamethoxazole/Trimethoprim 2 each PO Q8H 14 Days #84 tablet 01/13/19 Unknown Rx [Bactrim DS TAB] Active Medications: Generic Name Dose Route Start Last Admin Trade Name Freq PRN Reason Stop Dose Admin Acetaminophen 650 mg 01/06/19 10:07 Tylenol PO Q4H PRN Pain MILD(1-3)/Fever >100.5/BOOTHE Acetaminophen/Hydrocodone Bitart 2 each 01/06/19 10:07 01/12/19 05:34 [place] 5/325 PO 2 each Q6H PRN Administration Pain, Moderate (4-6) Albuterol 2.5 mg 01/12/19 01:23 Proventil IH Q3HRT PRN Shortness Of Breath Enoxaparin Sodium 40 mg 01/06/19 22:00 01/14/19 21:18 Lovenox SUB-Q 40 mg QDAY@2200 DIOGENES Administration Famotidine 10 mg 01/06/19 22:00 01/15/19 09:29 Pepcid PO 10 mg BID DIOGENES Administration Fluconazole 200 mg 01/06/19 14:00 01/15/19 09:30 Diflucan PO 200 mg QDAY DIOGENES Administration Fludrocortisone Acetate 0.1 mg 01/14/19 11:00 01/15/19 09:30 Florinef PO 0.1 mg QDAY DIOGENES Administration Guaifenesin 1,200 mg 01/07/19 10:00 01/15/19 09:30 Mucinex Er PO 1,200 mg BID DIOGENES Administration Hydralazine HCl 5 mg 01/06/19 10:07 Apresoline IV Q30MIN PRN Hypertension Insulin Human Regular 0 units 01/09/19 22:00 01/15/19 07:52 Humulin R SUB-Q Not Given ACHS DIOGENES Protocol Methylprednisolone Sodium Succinate 40 mg 01/08/19 13:00 01/15/19 09:29 Solu-Medrol IV 40 mg Q24HR DIOGENES Administration Ondansetron HCl 4 mg 01/06/19 10:07 01/12/19 05:34 Zofran IV 4 mg Q8H PRN Administration N/V unrelieved by James Noe 8.6 mg 01/06/19 22:00 01/15/19 09:30 Senokot PO 8.6 mg Q12HR DIOGENES Administration Sodium Bicarbonate 1,300 mg 01/12/19 22:00 01/15/19 09:29 Sodium Bicarbonate PO 1,300 mg BID DIOGENES Administration Trimethoprim/Sulfamethoxazole 2 each 01/06/19 14:00 01/15/19 05:06 Bactrim Ds PO 2 each Q8HR DIOGENES Administration
--- NOTE | 2019-01-15 12:01 | Progress Note ---
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 Acute hypoxic respiratory failure due to pneumonia - monitor patient - Will provide scheduled nebulizer breathing treatment and as needed - follow sputum culture, chest x-ray showed bilateral pneumonia - Provide supplemental oxygen to keep oxygen saturation above 92% - less shortness of breath - Now on Oxygen by NC at 2l/min with Oxygen sat of 98% B/L PNA with sepsis - Obtained blood culture, sputum culture - ID consulted,following cont iv abx per ID recommendation h/o HIV dx on Jun 2015, not on ARV since then - ID Physician following follow-up CD4, VL, HIV genotype, cryptococcal serum antigen, HBV and HCV serology, RPR -HIV RNA copies/ml 1,720,000 Hyponatremia, Improving after Tolvaptan 15mg po x 2 doses given on 01/10 and 01/13 Na 125 today Nephrology following Fluid restriction Hyperkalemia Give kayexalate 30g po x 1 dose Noncompliance, counseled Oral candidiasis, started on fluconazole DVT prophylaxis, Lovenox Discussed with case management. May need home Oxygen History Interval history: Less shortness of breath Coughing No fever Hospitalist Physical - Physical exam Narrative exam: Gen: Not in acute distress, lying in bed, On Oxygen by NC HEENT: Normocephalic, atraumatic Neck: supple, no JVD Heart: S1 and S2 reg, no murmurs, rubs or gallop Lungs: Crackles left base, no wheeze Abd: soft, non tender, non distended, normal BS Ext: No edema, no clubbing, no cyanosis, Neuro: Awake,alert, moves all extremities, non focal Psych:Normal mood - Constitutional Vitals: Temp Pulse Resp BP Pulse Ox 99.0 F 81 18 138/91 99 01/15/19 07:33 01/15/19 05:18 01/15/19 07:33 01/15/19 07:33 01/15/19 05:18 Results - Labs CBC & Chem 7: 01/14/19 04:24 01/15/19 05:30 Labs: Laboratory Last Values WBC 10.3 K/mm3 (4.5-11.0) 01/14/19 04:24 RBC 4.29 M/mm3 (3.65-5.03) 01/14/19 04:24 Hgb 12.9 gm/dl (11.8-15.2) 01/14/19 04:24 Hct 37.9 % (35.5-45.6) 01/14/19 04:24 MCV 88 fl (84-94) 01/14/19 04:24 MCH 30 pg (28-32) 01/14/19 04:24 MCHC 34 % (32-34) 01/14/19 04:24 RDW 13.8 % (13.2-15.2) 01/14/19 04:24 Plt Count 388 K/mm3 (140-440) 01/14/19 04:24 Lymph % (Auto) 2.7 % (13.4-35.0) L 01/06/19 06:56 [place] % (Auto) 8.0 % (0.0-7.3) H 01/06/19 06:56 Eos % (Auto) 2.3 % (0.0-4.3) 01/06/19 06:56 Baso % (Auto) 0.3 % (0.0-1.8) 01/06/19 06:56 Lymph # 0.3 K/mm3 (1.2-5.4) L 01/06/19 06:56 [place] # 0.9 K/mm3 (0.0-0.8) H 01/06/19 06:56 Eos # 0.3 K/mm3 (0.0-0.4) 01/06/19 06:56 Baso # 0.0 K/mm3 (0.0-0.1) 01/06/19 06:56 Add Manual Diff Complete 01/10/19 00:18 Total Counted 100 01/10/19 00:18 Seg Neutrophils % Communications Senior Associate 01/10/19 00:18 Seg Neuts % (Manual) 96.0 % (40.0-70.0) H 01/10/19 00:18 0 % 01/10/19 00:18 2.0 % (13.4-35.0) L 01/10/19 00:18 Reactive Lymphs % (Man) 0 % 01/10/19 00:18 2.0 % (0.0-7.3) 01/10/19 00:18 0 % (0.0-4.3) 01/10/19 00:18 0 % (0.0-1.8) 01/10/19 00:18 0 % 01/10/19 00:18 0 % 01/10/19 00:18 0 % 01/10/19 00:18 0 % 01/10/19 00:18 Nucleated RBC % Not Reportable 01/10/19 00:18 Seg Neutrophils # 9.7 K/mm3 (1.8-7.7) H 01/06/19 06:56 Seg Neutrophils # Man 13.2 K/mm3 (1.8-7.7) H 01/10/19 00:18 Band Neutrophils # 0.0 K/mm3 01/10/19 00:18 0.3 K/mm3 (1.2-5.4) L 01/10/19 00:18 Abs React Lymphs (Man) 0.0 K/mm3 01/10/19 00:18 0.3 K/mm3 (0.0-0.8) 01/10/19 00:18 0.0 K/mm3 (0.0-0.4) 01/10/19 00:18 0.0 K/mm3 (0.0-0.1) 01/10/19 00:18 0.0 K/mm3 01/10/19 00:18 0.0 K/mm3 01/10/19 00:18 0.0 K/mm3 01/10/19 00:18 Blast Cells # 0.0 K/mm3 01/10/19 00:18 WBC Morphology Not Reportable 01/10/19 00:18 Hypersegmented Neuts Not Reportable 01/10/19 00:18 Hyposegmented Neuts Not Reportable 01/10/19 00:18 Hypogranular Neuts Not Reportable 01/10/19 00:18 Not Reportable 01/10/19 00:18 Not Reportable 01/10/19 00:18 Not Reportable 01/10/19 00:18 Not Reportable 01/10/19 00:18 Not Reportable 01/10/19 00:18 Not Reportable 01/10/19 00:18 Consistent w auto 01/10/19 00:18 Not Reportable 01/10/19 00:18 Plt Clumps, EDTA Not Reportable 01/10/19 00:18 Not Reportable 01/10/19 00:18 Not Reportable 01/10/19 00:18 Not Reportable 01/10/19 00:18 Plt Morphology Comment Not Reportable 01/10/19 00:18 RBC Morphology Normal 01/10/19 00:18 Dimorphic RBCs Not Reportable 01/10/19 00:18 Not Reportable 01/10/19 00:18 Not Reportable 01/10/19 00:18 Not Reportable 01/10/19 00:18 Not Reportable 01/10/19 00:18 Not Reportable 01/10/19 00:18 Not Reportable 01/10/19 00:18 Not Reportable 01/10/19 00:18 Not Reportable 01/10/19 00:18 Not Reportable 01/10/19 00:18 Not Reportable 01/10/19 00:18 Not Reportable 01/10/19 00:18 Not Reportable 01/10/19 00:18 Not Reportable 01/10/19 00:18 Not Reportable 01/10/19 00:18 Not Reportable 01/10/19 00:18 Not Reportable 01/10/19 00:18 Not Reportable 01/10/19 00:18 Not Reportable 01/10/19 00:18 Not Reportable 01/10/19 00:18 Acanthocytes (Spur) Not Reportable 01/10/19 00:18 Rouleaux Not Reportable 01/10/19 00:18 Not Reportable 01/10/19 00:18 Not Reportable 01/10/19 00:18 Not Reportable 01/10/19 00:18 Not Reportable 01/10/19 00:18 Hem Pathologist Commnt No 01/10/19 00:18 PT 13.9 Sec. (12.2-14.9) 01/06/19 06:56 INR 1.10 (0.87-1.13) 01/06/19 06:56 APTT 34.9 Sec. (24.2-36.6) 01/06/19 06:56 POC ABG pH 7.415 (7.35-7.45) 01/08/19 17:36 POC ABG pO2 61 (80-105) L 01/08/19 17:36 POC ABG HCO3 15.0 (22-26 mml/L) 01/08/19 17:36 POC ABG Total CO2 16 (23-27mmol/L) 01/08/19 17:36 POC ABG O2 Sat 92 01/08/19 17:36 POC ABG Base Excess -10 ((-2) - (+3)mmol/L) 01/08/19 17:36 VBG pH 7.459 (7.320-7.420) H 01/06/19 06:56 40 % 01/08/19 17:36 Sodium 125 mmol/L (137-145) L 01/15/19 05:30 Potassium 5.2 mmol/L (3.6-5.0) H 01/15/19 05:30 Chloride 93.2 mmol/L (98-107) L 01/15/19 05:30 Carbon Dioxide 19 mmol/L (22-30) L 01/15/19 05:30 18 mmol/L 01/15/19 05:30 BUN 42 mg/dL (9-20) H 01/15/19 05:30 1.2 mg/dL (0.8-1.5) 01/15/19 05:30 Estimated GFR > 60 ml/min 01/15/19 05:30 35 % 01/15/19 05:30 Glucose 96 mg/dL (75-100) 01/15/19 05:30 POC Glucose 86 (70-105) 01/15/19 07:37 288 Mosm/kg 01/12/19 14:57 Lactic Acid 1.10 mmol/L (0.7-2.0) 01/06/19 09:43 3.2 mg/dL (3.5-7.6) L 01/15/19 10:31 Calcium 9.4 mg/dL (8.4-10.2) 01/15/19 05:30 0.40 mg/dL (0.1-1.2) 01/06/19 06:56 < 0.2 mg/dL (0-0.2) 01/06/19 06:56 AST 27 units/L (5-40) 01/06/19 06:56 ALT 14 units/L (7-56) 01/06/19 06:56 65 units/L (35-129) 01/06/19 06:56 < 0.010 ng/mL (0.00-0.029) 01/06/19 12:15 NT-Pro-B Natriuret Pep 1357 pg/mL (0-900) H 01/08/19 06:50 7.2 g/dL (6.3-8.2) 01/06/19 06:56 2.4 g/dL (3.9-5) L 01/06/19 06:56 0.5 % 01/06/19 06:56 TSH 0.118 mlU/mL (0.270-4.200) L 01/10/19 10:36 Free T4 1.39 ng/dL (0.76-1.46) 01/10/19 21:44 11.7 mcg/dL () 01/10/19 10:36 Yellow (Yellow) 01/10/19 Unknown Cloudy (Clear) 01/10/19 Unknown 7.0 (5.0-7.0) 01/10/19 Unknown Ur Specific [place] 1.016 (1.003-1.030) 01/10/19 Unknown <15 mg/dl mg/dL (Negative) 01/10/19 Unknown Neg mg/dL (Negative) 01/10/19 Unknown Neg mg/dL (Negative) 01/10/19 Unknown Neg (Negative) 01/10/19 Unknown Neg (Negative) 01/10/19 Unknown Neg (Negative) 01/10/19 Unknown < 2.0 mg/dL (<2.0) 01/10/19 Unknown Ur Leukocyte Esterase Neg (Negative) 01/10/19 Unknown 4.0 /HPF (0.0-6.0) 01/10/19 Unknown 1.0 /HPF (0.0-6.0) 01/10/19 Unknown 1+ /HPF (Negative) 01/10/19 Unknown Few /HPF 01/06/19 08:09 500 Mosm/kg 01/12/19 19:30 13.43 mmol/L 01/12/19 19:30 RPR Nonreactive (Nonreactive) 01/06/19 13:32 Hepatitis A IgM Ab Non-reactive (NonReactive) 01/06/19 13:32 Hep Bs Antigen Non-reactive (Negative) 01/06/19 13:32 Hep B Core IgM Ab Non-reactive (NonReactive) 01/06/19 13:32 Non-reactive (NonReactive) 01/06/19 13:32 HIV-1 RNA PCR copies/ml [id number] Copies/mL H 01/06/19 13:32 6.24 Log cps/mL H 01/06/19 13:32 Active Medications - Current Medications Current Medications: Generic Name Dose Route Start Last Admin Trade Name Freq PRN Reason Stop Dose Admin Acetaminophen 650 mg 01/06/19 10:07 Tylenol PO Q4H PRN Pain MILD(1-3)/Fever >100.5/BOOTHE Acetaminophen/Hydrocodone Bitart 2 each 01/06/19 10:07 01/12/19 05:34 [place] 5/325 PO 2 each Q6H PRN Administration Pain, Moderate (4-6) Albuterol 2.5 mg 01/12/19 01:23 Proventil IH Q3HRT PRN Shortness Of Breath Enoxaparin Sodium 40 mg 01/06/19 22:00 01/14/19 21:18 Lovenox SUB-Q 40 mg QDAY@2200 DIOGENES Administration Famotidine 10 mg 01/06/19 22:00 01/15/19 09:29 Pepcid PO 10 mg BID DIOGENES Administration Fluconazole 200 mg 01/06/19 14:00 01/15/19 09:30 Diflucan PO 200 mg QDAY DIOGENES Administration Fludrocortisone Acetate 0.1 mg 01/14/19 11:00 01/15/19 09:30 Florinef PO 0.1 mg QDAY DIOGENES Administration Guaifenesin 1,200 mg 01/07/19 10:00 01/15/19 09:30 Mucinex Er PO 1,200 mg BID DIOGENES Administration Hydralazine HCl 5 mg 01/06/19 10:07 Apresoline IV Q30MIN PRN Hypertension Insulin Human Regular 0 units 01/09/19 22:00 01/15/19 07:52 Humulin R SUB-Q Not Given ACHS [facility] Protocol Methylprednisolone Sodium Succinate 40 mg 01/08/19 13:00 01/15/19 09:29 Solu-Medrol IV 40 mg Q24HR DIOGENES Administration Ondansetron HCl 4 mg 01/06/19 10:07 01/12/19 05:34 Zofran IV 4 mg Q8H PRN Administration N/V unrelieved by James Senna 8.6 mg 01/06/19 22:00 01/15/19 09:30 Senokot PO 8.6 mg Q12HR DIOGENES Administration Sodium Bicarbonate 1,300 mg 01/12/19 22:00 01/15/19 09:29 Sodium Bicarbonate PO 1,300 mg BID DIOGENES Administration Trimethoprim/Sulfamethoxazole 2 each 01/06/19 14:00 01/15/19 05:06 Bactrim Ds PO 2 each Q8HR DIOGENES Administration Nutrition/Malnutrition Assess - Dietary Evaluation Nutrition/Malnutrition Findings: Nutrition Notes Start: 01/07/19 12:44 Freq: Status: Active Protocol: Document 01/12/19 14:26 RM (Rec: 01/12/19 14:35 RM [id number]) Nutrition Notes Initial or Follow up Reassessment Current Diagnosis Sepsis Other Pertinent Diagnosis Abdominal pain, Bilat pneu, HIV, Hyponatremia, Noncompliance Current Diet Regular Labs/Tests Reviewed Pertinent Medications Toshia Garciau-Medrol Height 5 ft 6 in Weight 59.6 kg [place] Body Weight (kg) 64.54 BMI 21.2 Subjective/Other Information Pt stated that he has been eating bites of [place] food that has been brought in and drinks the Ensure Enlive. Noted various partially eaten foods and half drunk Ensure Enlive on bedside table. Denied N/V. Percent of energy/protein needs met: 10%/15% Burn Absent Trauma Absent #2 Nutrition Diagnosis Inadequate oral intake Diagnosis Progress(for reassessment Continues documentation) Is patient on ventilator? No Is Patient Ambulatory and/or Out of Bed Yes REE-([facility]-ambulatory/OOB) [ 1792.375 [id number]] Calculation Used for Recommendations [facility] Additional Notes Pro needs 1-1.2g/k-77g/ day Fluid needs 1ml/kcal Nutrition Intervention Change Diet Order: Continue Add Supplement/Snack (indicate name/kcal Ensure Enlive Chocolate 1 /protein ) daily Provides kCal: 350 Provides Protein (gm) 20 Goal #1 PO intake of meals plus ONS to meet at least 75% energy and pro needs Anticipated Discharge Needs: Unable to determine at this time Follow-Up By: 01/15/19 Additional Comments Follow for PO and ONS intakes
[2019-01-15 20:36] LABS: Chloride, Urine 40.9 mmolL (110-250); Creatinine,Urine 101.7 mg/dL (0.1-20.0)
[2019-01-15] MEDS: LOVENOX SUB-Q SCH (22:04)
[2019-01-16 05:12] LABS: BUN/Creatinine Ratio 36; Blood Urea Nitrogen 40 mg/dL (9-20); Calcium 9.1 mg/dL (8.4-10.2); Hemolysis Index 3
[2019-01-16] MEDS: BACTRIM DS PO SCH ×3 (06:38→22:32)
[2019-01-16] MEDS: HumuLIN R SUB-Q SCH ×4 (09:00→22:36)
[2019-01-16] MEDS: SENOKOT PO SCH ×2 (09:59→22:32)
[2019-01-16] MEDS: PEPCID PO SCH ×2 (09:59→22:32)
[2019-01-16] MEDS: SODIUM BICARBONATE PO SCH ×2 (09:59→22:32)
[2019-01-16] MEDS: MUCINEX ER PO SCH ×2 (09:59→22:32)
[2019-01-16] MEDS: SOLU-Medrol IV SCH (09:59)
[2019-01-16] MEDS: DIFLUCAN PO SCH (09:59)
[2019-01-16] MEDS: FLORINEF PO SCH (10:00)
--- NOTE | 2019-01-16 11:03 | Progress Note ---
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 Etiology most likely pneumonia.HBC and HCV serology nonreactive. RPR nonreactive. 2) Bilateral pneumonia: likely PJP +/- CAP. Patient with HIV not on ART, likely AIDS. CXR showed patchy left greater than right basilar opacity with left basilar air bronchograms. 02 weaned down to 2L. 3) Oral candidiasis: Improved 4) HIV/AIDS: noncompliant with ART therapy. Viral load 1.7 mil. Recommendations: - continue Bactrim DS 2 tab po TID to treat empirically PJP for total 21 days, Then Bactrim DS 1 tab po q day (prescriptions on the chart) - discontinue fluconazole - completed antibiotic course - follow-up CD4, HIV genotype - needs education about consistent HIV management -discussed with case management and patient. Information will be provided to follow-up with [email or web address]] to start ART therapy [employer] [employer] M: [phone] O:[phone] Subjective Date of service: 01/16/19 Interval history: Patient seen and examined. Primary language Polish. Conversation via interp retation line. states that he is feeling better today. No fever or SOB. Son at bedside. Objective - Exam Narrative Exam: General appearance: Awake. Alert. No acute distress. Eyes: anicteric sclerae, moist conjunctivae; no lid-lag; PERRLA HENT: Atraumatic; oropharynx clear with moist mucous membranes and +mild oral thrush; normal hard and soft palate. Normal external ears. Neck: Trachea midline; supple, no thyromegaly or lymphadenopathy Lungs: fine crackles LLL, 02/2L CV: RRR Abdomen: Soft, diffuse tenderness and pain. Extremities: no edema, cyanosis Skin: Normal temperature, turgor and texture; no rash, ulcers or subcutaneous nodules Psych: Appropriate affect, alert and oriented to person, place and time. Neuro: alert and oriented x 3. Moving all extremities - Constitutional Vitals: Vital Signs Temp Pulse Resp BP Pulse Ox 98.4 F 92 H 18 125/78 100 01/16/19 08:13 01/16/19 08:13 01/16/19 08:13 01/16/19 08:13 01/16/19 08:13 Temperature -Last 24 Hours Temperature 98.4 F Temperature 98.9 F Temperature 97.5 F Temperature 98.5 F Temperature 97.4 F Temperature 97.5 F - Labs CBC & Chem 7: 01/14/19 04:24 01/16/19 03:44 Labs: Abnormal lab results 01/15/19 01/15/19 01/15/19 Range/Units 10:31 11:19 15:44 Sodium (137-145) mmol/L Chloride (98-107) mmol/L Carbon Dioxide (22-30) mmol/L BUN (9-20) mg/dL Glucose (75-100) mg/dL POC Glucose 158 H 230 H (70-105) Uric Acid 3.2 L (3.5-7.6) mg/dL Urine Creatinine (0.1-20.0) mg/dL Urine Chloride (110-250) mmolL 01/15/19 01/15/19 01/16/19 Range/Units 19:45 21:08 03:44 Sodium 128 L (137-145) mmol/L Chloride 96.4 L (98-107) mmol/L Carbon Dioxide 21 L (22-30) mmol/L BUN 40 H (9-20) mg/dL Glucose 111 H (75-100) mg/dL POC Glucose 188 H (70-105) Uric Acid (3.5-7.6) mg/dL Urine Creatinine 101.7 H (0.1-20.0) mg/dL Urine Chloride 40.9 L (110-250) mmolL
--- NOTE | 2019-01-16 11:33 | Progress Note ---
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 * Acute hypoxic respiratory failure secondary to infectious process vs pulmonary edema * HIV * Hyperkalemia - resolved; secondary to Bactrim vs ?type IV RTA * Metabolic acidosis Plan: * Salt tabs tid * TTE reviewed - LVEF 50-55%, nml diastolic function as well * Continue to hold diuretics * Pulmonary following * Avoid excessive fluid intake * Strict I/O Subjective Date of service: 01/16/19 Principal diagnosis: hyponatrema Interval history: resting well in bed today Objective - Exam Narrative Exam: General appearance: well-developed, well-nourished EENT: ATNC Respiratory: Present: Other (faint inspiratory crackles) Cardiology: regular, S1S2 Gastrointestinal: normal, no tenderness, no distended Integumentary: no rash Neurologic: no focal deficit Musculoskeletal: other (no peripheral edema) Psychiatric: cooperative - Vital Signs Vital signs: Vital Signs - 12hr 01/16/19 01/16/19 03:16 08:13 Temperature 98.9 F 98.4 F Pulse Rate 93 H 92 H Respiratory 18 18 Rate Blood Pressure 145/102 125/78 O2 Sat by Pulse 95 100 Oximetry - Lab 01/14/19 04:24 01/16/19 03:44 Most recent lab results Calcium 9.1 mg/dL (8.4-10.2) 01/16/19 03:44 101.7 mg/dL (0.1-20.0) H 01/15/19 19:45 82 mmol/L 01/15/19 19:45 Medications & Allergies - Medications Allergies/Adverse Reactions: Allergies No Known Allergies Allergy (Verified 09/24/15 12:37) Home Medications: Home Medications Medication Instructions Recorded Confirmed Last Taken Type Acetaminophen [Acetaminophen TAB] 650 mg PO Q4H PRN #30 tablet 09/30/15 01/07/19 Unknown Rx Sulfamethoxazole/Trimethoprim 1 each PO DAILY #30 tablet 09/30/15 01/07/19 Unknown Rx [Bactrim DS TAB] Warfarin [Coumadin] 5 mg PO QHS #30 tablet 10/01/15 01/07/19 Unknown Rx Sulfamethoxazole/Trimethoprim 1 each PO QDAY 30 Days #30 tablet 01/13/19 Unknown Rx [Bactrim DS TAB] Sulfamethoxazole/Trimethoprim 2 each PO Q8H 14 Days #84 tablet 01/13/19 Unknown Rx [Bactrim DS TAB] Active Medications: Generic Name Dose Route Start Last Admin Trade Name Freq PRN Reason Stop Dose Admin Acetaminophen 650 mg 01/06/19 10:07 Tylenol PO Q4H PRN Pain MILD(1-3)/Fever >100.5/BOOTHE Acetaminophen/Hydrocodone Bitart 2 each 01/06/19 10:07 01/12/19 05:34 [place] 5/325 PO 2 each Q6H PRN Administration Pain, Moderate (4-6) Albuterol 2.5 mg 01/12/19 01:23 Proventil IH Q3HRT PRN Shortness Of Breath Enoxaparin Sodium 40 mg 01/06/19 22:00 01/15/19 22:04 Lovenox SUB-Q 40 mg QDAY@2200 DIOGENES Administration Famotidine 10 mg 01/06/19 22:00 01/16/19 09:59 Pepcid PO 10 mg BID DIOGENES Administration Fludrocortisone Acetate 0.1 mg 01/14/19 11:00 01/16/19 10:00 Florinef PO 0.1 mg QDAY DIOGENES Administration Guaifenesin 1,200 mg 01/07/19 10:00 01/16/19 09:59 Mucinex Er PO 1,200 mg BID DIOGENES Administration Hydralazine HCl 5 mg 01/06/19 10:07 Apresoline IV Q30MIN PRN Hypertension Insulin Human Regular 0 units 01/09/19 22:00 01/16/19 09:00 Humulin R SUB-Q Not Given ACHS [facility] Protocol Methylprednisolone Sodium Succinate 40 mg 01/08/19 13:00 01/16/19 09:59 Solu-Medrol IV 40 mg Q24HR DIOGENES Administration Ondansetron HCl 4 mg 01/06/19 10:07 01/12/19 05:34 Zofran IV 4 mg Q8H PRN Administration N/V unrelieved by James Senna 8.6 mg 01/06/19 22:00 01/16/19 09:59 Senokot PO 8.6 mg Q12HR DIOGENES Administration Sodium Bicarbonate 1,300 mg 01/12/19 22:00 01/16/19 09:59 Sodium Bicarbonate PO 1,300 mg BID DIOGENES Administration Trimethoprim/Sulfamethoxazole 2 each 01/06/19 14:00 01/16/19 06:38 Bactrim Ds PO 2 each Q8HR DIOGENES Administration
--- NOTE | 2019-01-16 14:29 | Progress Note ---
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 He was diagnosed with acute respiratory failure, bilateral pneumonia with sepsis. patient was admitted, evaluated by Pulmonology and ID Physician. He was treated for probable PCP with Bactrim. He was on Oxygen by high flow , now on 3l/min with Oxygen sat 98%. Also had hyponatremia, seen by Nephrology and given multiple doses of Samsca.. Today 01/16 sodium 128. may dc home on home Oxygen when Sodium > 130 Acute hypoxic respiratory failure due to pneumonia - monitor patient - Will provide scheduled nebulizer breathing treatment and as needed - follow sputum culture, chest x-ray showed bilateral pneumonia - Provide supplemental oxygen to keep oxygen saturation above 92% - less shortness of breath - Now on Oxygen by NC at 3l/min with Oxygen sat of 98% B/L PNA with sepsis - Obtained blood culture, sputum culture - ID consulted,following cont iv abx per ID recommendation h/o HIV dx on Jun 2015, not on ARV since then - ID Physician following follow-up CD4, VL, HIV genotype, cryptococcal serum antigen, HBV and HCV serology, RPR -HIV RNA copies/ml 1,720,000 Hyponatremia, Improving after Tolvaptan 15mg po x 2 doses given on 01/10 and 01/13 Na 128 today Nephrology following Fluid restriction Discussed with Nephrology. may dc home when Sodium>130 Hyperkalemia, Resolved after Gave kayexalate 30g po x 1 dose Noncompliance, counseled Oral candidiasis, started on fluconazole DVT prophylaxis, Lovenox Discussed with case management. Home oxygen being arranged. may dc home when Sodium > 130 To dc home on Bactrim DS 2pills Q 8h total 21 days then 1 pill po daily afterwa rds - prescription ordered by ID, on chart. History Interval history: Less shortness of breath Coughing No fever Hospitalist Physical - Physical exam Narrative exam: Gen: Not in acute distress, lying in bed, On Oxygen by NC HEENT: Normocephalic, atraumatic Neck: supple, no JVD Heart: S1 and S2 reg, no murmurs, rubs or gallop Lungs: Crackles left base, no wheeze Abd: soft, non tender, non distended, normal BS Ext: No edema, no clubbing, no cyanosis, Neuro: Awake,alert, moves all extremities, non focal Psych:Normal mood - Constitutional Vitals: Temp Pulse Resp BP Pulse Ox 98.4 F 92 H 18 125/78 100 01/16/19 08:13 01/16/19 08:13 01/16/19 08:13 01/16/19 08:13 01/16/19 08:13 Results - Labs CBC & Chem 7: 01/14/19 04:24 01/16/19 03:44 Labs: Laboratory Last Values WBC 10.3 K/mm3 (4.5-11.0) 01/14/19 04:24 RBC 4.29 M/mm3 (3.65-5.03) 01/14/19 04:24 Hgb 12.9 gm/dl (11.8-15.2) 01/14/19 04:24 Hct 37.9 % (35.5-45.6) 01/14/19 04:24 MCV 88 fl (84-94) 01/14/19 04:24 MCH 30 pg (28-32) 01/14/19 04:24 MCHC 34 % (32-34) 01/14/19 04:24 RDW 13.8 % (13.2-15.2) 01/14/19 04:24 Plt Count 388 K/mm3 (140-440) 01/14/19 04:24 Lymph % (Auto) 2.7 % (13.4-35.0) L 01/06/19 06:56 Bailey % (Auto) 8.0 % (0.0-7.3) H 01/06/19 06:56 Eos % (Auto) 2.3 % (0.0-4.3) 01/06/19 06:56 Baso % (Auto) 0.3 % (0.0-1.8) 01/06/19 06:56 Lymph # 0.3 K/mm3 (1.2-5.4) L 01/06/19 06:56 Bailey # 0.9 K/mm3 (0.0-0.8) H 01/06/19 06:56 Eos # 0.3 K/mm3 (0.0-0.4) 01/06/19 06:56 Baso # 0.0 K/mm3 (0.0-0.1) 01/06/19 06:56 Add Manual Diff Complete 01/10/19 00:18 Total Counted 100 01/10/19 00:18 Seg Neutrophils % Process Area Supervisor 01/10/19 00:18 Seg Neuts % (Manual) 96.0 % (40.0-70.0) H 01/10/19 00:18 0 % 01/10/19 00:18 2.0 % (13.4-35.0) L 01/10/19 00:18 Reactive Lymphs % (Man) 0 % 01/10/19 00:18 2.0 % (0.0-7.3) 01/10/19 00:18 0 % (0.0-4.3) 01/10/19 00:18 0 % (0.0-1.8) 01/10/19 00:18 0 % 01/10/19 00:18 0 % 01/10/19 00:18 0 % 01/10/19 00:18 0 % 01/10/19 00:18 Nucleated RBC % Not Reportable 01/10/19 00:18 Seg Neutrophils # 9.7 K/mm3 (1.8-7.7) H 01/06/19 06:56 Seg Neutrophils # Man 13.2 K/mm3 (1.8-7.7) H 01/10/19 00:18 Band Neutrophils # 0.0 K/mm3 01/10/19 00:18 0.3 K/mm3 (1.2-5.4) L 01/10/19 00:18 Abs React Lymphs (Man) 0.0 K/mm3 01/10/19 00:18 0.3 K/mm3 (0.0-0.8) 01/10/19 00:18 0.0 K/mm3 (0.0-0.4) 01/10/19 00:18 0.0 K/mm3 (0.0-0.1) 01/10/19 00:18 0.0 K/mm3 01/10/19 00:18 0.0 K/mm3 01/10/19 00:18 0.0 K/mm3 01/10/19 00:18 Blast Cells # 0.0 K/mm3 01/10/19 00:18 WBC Morphology Not Reportable 01/10/19 00:18 Hypersegmented Neuts Not Reportable 01/10/19 00:18 Hyposegmented Neuts Not Reportable 01/10/19 00:18 Hypogranular Neuts Not Reportable 01/10/19 00:18 Not Reportable 01/10/19 00:18 Not Reportable 01/10/19 00:18 Not Reportable 01/10/19 00:18 Not Reportable 01/10/19 00:18 Not Reportable 01/10/19 00:18 Not Reportable 01/10/19 00:18 Consistent w auto 01/10/19 00:18 Not Reportable 01/10/19 00:18 Plt Clumps, EDTA Not Reportable 01/10/19 00:18 Not Reportable 01/10/19 00:18 Not Reportable 01/10/19 00:18 Not Reportable 01/10/19 00:18 Plt Morphology Comment Not Reportable 01/10/19 00:18 RBC Morphology Normal 01/10/19 00:18 Dimorphic RBCs Not Reportable 01/10/19 00:18 Not Reportable 01/10/19 00:18 Not Reportable 01/10/19 00:18 Not Reportable 01/10/19 00:18 Not Reportable 01/10/19 00:18 Not Reportable 01/10/19 00:18 Not Reportable 01/10/19 00:18 Not Reportable 01/10/19 00:18 Not Reportable 01/10/19 00:18 Not Reportable 01/10/19 00:18 Not Reportable 01/10/19 00:18 Not Reportable 01/10/19 00:18 Not Reportable 01/10/19 00:18 Not Reportable 01/10/19 00:18 Not Reportable 01/10/19 00:18 Not Reportable 01/10/19 00:18 Not Reportable 01/10/19 00:18 Not Reportable 01/10/19 00:18 Not Reportable 01/10/19 00:18 Not Reportable 01/10/19 00:18 Acanthocytes (Spur) Not Reportable 01/10/19 00:18 Rouleaux Not Reportable 01/10/19 00:18 Not Reportable 01/10/19 00:18 Not Reportable 01/10/19 00:18 Not Reportable 01/10/19 00:18 Not Reportable 01/10/19 00:18 Hem Pathologist Commnt No 01/10/19 00:18 PT 13.9 Sec. (12.2-14.9) 01/06/19 06:56 INR 1.10 (0.87-1.13) 01/06/19 06:56 APTT 34.9 Sec. (24.2-36.6) 01/06/19 06:56 POC ABG pH 7.415 (7.35-7.45) 01/08/19 17:36 POC ABG pO2 61 (80-105) L 01/08/19 17:36 POC ABG HCO3 15.0 (22-26 mml/L) 01/08/19 17:36 POC ABG Total CO2 16 (23-27mmol/L) 01/08/19 17:36 POC ABG O2 Sat 92 01/08/19 17:36 POC ABG Base Excess -10 ((-2) - (+3)mmol/L) 01/08/19 17:36 VBG pH 7.459 (7.320-7.420) H 01/06/19 06:56 40 % 01/08/19 17:36 Sodium 128 mmol/L (137-145) L 01/16/19 03:44 Potassium 4.6 mmol/L (3.6-5.0) 01/16/19 03:44 Chloride 96.4 mmol/L (98-107) L 01/16/19 03:44 Carbon Dioxide 21 mmol/L (22-30) L 01/16/19 03:44 15 mmol/L 01/16/19 03:44 BUN 40 mg/dL (9-20) H 01/16/19 03:44 1.1 mg/dL (0.8-1.5) 01/16/19 03:44 Estimated GFR > 60 ml/min 01/16/19 03:44 36 % 01/16/19 03:44 Glucose 111 mg/dL (75-100) H 01/16/19 03:44 POC Glucose 155 (70-105) H 01/16/19 11:20 288 Mosm/kg 01/12/19 14:57 Lactic Acid 1.10 mmol/L (0.7-2.0) 01/06/19 09:43 3.2 mg/dL (3.5-7.6) L 01/15/19 10:31 Calcium 9.1 mg/dL (8.4-10.2) 01/16/19 03:44 0.40 mg/dL (0.1-1.2) 01/06/19 06:56 < 0.2 mg/dL (0-0.2) 01/06/19 06:56 AST 27 units/L (5-40) 01/06/19 06:56 ALT 14 units/L (7-56) 01/06/19 06:56 65 units/L (35-129) 01/06/19 06:56 < 0.010 ng/mL (0.00-0.029) 01/06/19 12:15 NT-Pro-B Natriuret Pep 1357 pg/mL (0-900) H 01/08/19 06:50 7.2 g/dL (6.3-8.2) 01/06/19 06:56 2.4 g/dL (3.9-5) L 01/06/19 06:56 0.5 % 01/06/19 06:56 TSH 0.118 mlU/mL (0.270-4.200) L 01/10/19 10:36 Free T4 1.39 ng/dL (0.76-1.46) 01/10/19 21:44 11.7 mcg/dL () 01/10/19 10:36 Yellow (Yellow) 01/10/19 Unknown Cloudy (Clear) 01/10/19 Unknown 7.0 (5.0-7.0) 01/10/19 Unknown Ur Specific [place] 1.016 (1.003-1.030) 01/10/19 Unknown <15 mg/dl mg/dL (Negative) 01/10/19 Unknown Neg mg/dL (Negative) 01/10/19 Unknown Neg mg/dL (Negative) 01/10/19 Unknown Neg (Negative) 01/10/19 Unknown Neg (Negative) 01/10/19 Unknown Neg (Negative) 01/10/19 Unknown < 2.0 mg/dL (<2.0) 01/10/19 Unknown Ur Leukocyte Esterase Neg (Negative) 01/10/19 Unknown 4.0 /HPF (0.0-6.0) 01/10/19 Unknown 1.0 /HPF (0.0-6.0) 01/10/19 Unknown 1+ /HPF (Negative) 01/10/19 Unknown Few /HPF 01/06/19 08:09 886 Mosm/kg 01/15/19 19:45 101.7 mg/dL (0.1-20.0) H 01/15/19 19:45 82 mmol/L 01/15/19 19:45 13.43 mmol/L 01/12/19 19:30 40.9 mmolL (110-250) L 01/15/19 19:45 RPR Nonreactive (Nonreactive) 01/06/19 13:32 Hepatitis A IgM Ab Non-reactive (NonReactive) 01/06/19 13:32 Hep Bs Antigen Non-reactive (Negative) 01/06/19 13:32 Hep B Core IgM Ab Non-reactive (NonReactive) 01/06/19 13:32 Non-reactive (NonReactive) 01/06/19 13:32 HIV-1 RNA PCR copies/ml [id number] Copies/mL H 01/06/19 13:32 6.24 Log cps/mL H 01/06/19 13:32 Active Medications - Current Medications Current Medications: Generic Name Dose Route Start Last Admin Trade Name Freq PRN Reason Stop Dose Admin Acetaminophen 650 mg 01/06/19 10:07 Tylenol PO Q4H PRN Pain MILD(1-3)/Fever >100.5/BOOTHE Acetaminophen/Hydrocodone Bitart 2 each 01/06/19 10:07 01/12/19 05:34 Mchenry 5/325 PO 2 each Q6H PRN Administration Pain, Moderate (4-6) Albuterol 2.5 mg 01/12/19 01:23 Proventil IH Q3HRT PRN Shortness Of Breath Enoxaparin Sodium 40 mg 01/06/19 22:00 01/15/19 22:04 Lovenox SUB-Q 40 mg QDAY@2200 DIOGENES Administration Famotidine 10 mg 01/06/19 22:00 01/16/19 09:59 Pepcid PO 10 mg BID DIOGENES Administration Fludrocortisone Acetate 0.1 mg 01/14/19 11:00 01/16/19 10:00 Florinef PO 0.1 mg QDAY DIOGENES Administration Guaifenesin 1,200 mg 01/07/19 10:00 01/16/19 09:59 Mucinex Er PO 1,200 mg BID DIOGENES Administration Hydralazine HCl 5 mg 01/06/19 10:07 Apresoline IV Q30MIN PRN Hypertension Insulin Human Regular 0 units 01/09/19 22:00 01/16/19 09:00 Humulin R SUB-Q Not Given ACHS [facility] Protocol Methylprednisolone Sodium Succinate 40 mg 01/08/19 13:00 01/16/19 09:59 Solu-Medrol IV 40 mg Q24HR DIOGENES Administration Ondansetron HCl 4 mg 01/06/19 10:07 01/12/19 05:34 Zofran IV 4 mg Q8H PRN Administration N/V unrelieved by James Noe 8.6 mg 01/06/19 22:00 01/16/19 09:59 Senokot PO 8.6 mg Q12HR DIOGENES Administration Sodium Bicarbonate 1,300 mg 01/12/19 22:00 01/16/19 09:59 Sodium Bicarbonate PO 1,300 mg BID DIOGENES Administration Sodium Chloride 1 gm 01/16/19 14:00 Sodium Chloride PO TID DIOGENES Trimethoprim/Sulfamethoxazole 2 each 01/06/19 14:00 01/16/19 06:38 Bactrim Ds PO 2 each Q8HR DIOGENES Administration Nutrition/Malnutrition Assess - Dietary Evaluation Nutrition/Malnutrition Findings: Nutrition Notes Start: 01/07/19 12:44 Freq: Status: Active Protocol: Document 01/15/19 14:24 RM (Rec: 01/15/19 14:26 RM [id number]) Nutrition Notes Initial or Follow up Reassessment Current Diagnosis Sepsis Other Pertinent Diagnosis Abdominal pain, Bilat pneu, HIV, Hyponatremia, Noncompliance Current Diet Regular w/Ensure Enlive Chocolate 1 daily Labs/Tests Reviewed Pertinent Medications Reviewed Height 5 ft 6 in Weight 58.2 kg [place] Body Weight (kg) 64.54 BMI 20.7 Subjective/Other Information Pt stated that his appetite is good. Stated that he is eating 25% of his outside food and some of the facility meals. Stated he is also drinking the Ensure Enlive. Noted half drunk Ensure Enlive on bedside table. Denied vomiting. Burn Absent Trauma Absent #2 Nutrition Diagnosis Inadequate oral intake Diagnosis Progress(for reassessment Continues documentation) Is patient on ventilator? No Is Patient Ambulatory and/or Out of Bed Yes REE-([facility]-ambulatory/OOB) [ [id number] [id number]] Calculation Used for Recommendations [facility] Additional Notes Pro needs 1-1.2g/k-77g/ day Fluid needs 1ml/kcal Nutrition Intervention Change Diet Order: Continue Add Supplement/Snack (indicate name/kcal Ensure Enlive Chocolate 1 /protein ) daily Provides kCal: 350 Provides Protein (gm) 20 Goal #1 PO intake of meals plus ONS to meet at least 75% energy and pro needs Anticipated Discharge Needs: Regular diet Follow-Up By: 01/18/19 Additional Comments Follow for PO and ONS intakes
[2019-01-16] MEDS: SODIUM CHLORIDE PO SCH ×2 (14:57→22:39)
--- NOTE | 2019-01-16 17:23 | Progress Note ---
Assessment and Plan Imp: 1. PJP Pneumonia 2. HIV/AIDS 3. Acute respiratory failure, hypoxia 4. Hyponatremia/Hyperkalemia Rec: 1. He has clinically and radiographically improved on current therapy; thus, decision made per prior ID notes/Dr. Mcintyre to hold off on bronchoscopy, and this seems reasonable; will repeat another CXR in AM 2. Finish 21 days of Bactrim, and should take Prednisone 20mg daily for the remaining PJP course as well 3. Home O2 has been arranged 4. K and Na per renal 5. Needs close outpatient f/u, they expressed understanding Plan of care reviewed w/ patient/son, they understand/agree Subjective Date of service: 01/16/19 Principal diagnosis: hyponatrema Interval history: Continues to improve with decreased SOB. Cough is better, not resolved yet. On 2L NC. No new complaints. Active Medications Acetaminophen (Tylenol) 650 mg PO Q4H PRN PRN Reason: Pain MILD(1-3)/Fever >100.5/BOOTHE Acetaminophen/Hydrocodone Bitart ([place] 5/325) 2 each PO Q6H PRN PRN Reason: Pain, Moderate (4-6) Last Admin: 01/12/19 05:34 Dose: 2 each Documented by: Albuterol (Proventil) 2.5 mg IH Q3HRT PRN PRN Reason: Shortness Of Breath Enoxaparin Sodium (Lovenox) 40 mg SUB-Q QDAY@2200 [facility] Last Admin: 01/15/19 22:04 Dose: 40 mg Documented by: Famotidine (Pepcid) 10 mg PO BID [facility] Last Admin: 01/16/19 09:59 Dose: 10 mg Documented by: Fludrocortisone Acetate (Florinef) 0.1 mg PO QDAY [facility] Last Admin: 01/16/19 10:00 Dose: 0.1 mg Documented by: Guaifenesin (Mucinex Er) 1,200 mg PO BID [facility] Last Admin: 01/16/19 09:59 Dose: 1,200 mg Documented by: Hydralazine HCl (Apresoline) 5 mg IV Q30MIN PRN PRN Reason: Hypertension Insulin Human Regular (Humulin R) 0 units SUB-Q [facility]; Protocol Last Admin: 01/16/19 12:00 Dose: 1 units Documented by: Methylprednisolone Sodium Succinate (Solu-Medrol) 40 mg IV Q24HR [facility] Last Admin: 01/16/19 09:59 Dose: 40 mg Documented by: Ondansetron HCl (Zofran) 4 mg IV Q8H PRN PRN Reason: N/V unrelieved by James Last Admin: 01/12/19 05:34 Dose: 4 mg Documented by: Hasmukh (Senokot) 8.6 mg PO Q12HR [facility] Last Admin: 01/16/19 09:59 Dose: 8.6 mg Documented by: Sodium Bicarbonate (Sodium Bicarbonate) 1,300 mg PO BID [facility] Last Admin: 01/16/19 09:59 Dose: 1,300 mg Documented by: Sodium Chloride (Sodium Chloride) 1 gm PO TID [facility] Last Admin: 01/16/19 14:57 Dose: 1 gm Documented by: Trimethoprim/Sulfamethoxazole (Bactrim Ds) 2 each PO Q8HR [facility] Last Admin: 01/16/19 14:57 Dose: 2 each Documented by: Objective Vital Signs - 12hr 01/16/19 01/16/19 01/16/19 08:13 11:16 14:41 Temperature 98.4 F 98.4 F Pulse Rate 92 H 96 H Respiratory 18 18 Rate Blood Pressure 125/78 122/82 O2 Sat by Pulse 100 99 99 Oximetry 01/16/19 15:58 Temperature 97.9 F Pulse Rate 89 Respiratory 18 Rate Blood Pressure 131/83 O2 Sat by Pulse 99 Oximetry Constitutional: no acute distress, alert Eyes: non-icteric ENT: oropharynx moist Neck: supple, no JVD Effort: normal Ascultation: Bilateral: rales (few in bases) Cardiovascular: regular rate and rhythm (no mrg) Gastrointestinal: normoactive bowel sounds, soft, non-tender Integumentary: normal Extremities: no cyanosis, no edema, pink and warm Neurologic: normal mental status, non-focal exam, pupils equal and round, CN II- XII normal Psychiatric: mood appropriate, affect normal CBC and BMP: 01/14/19 04:24 01/16/19 03:44 ABG, PT/INR, D-dimer: ABG POC ABG pH 7.415 (7.35-7.45) 01/08/19 17:36 POC ABG pO2 61 (80-105) L 01/08/19 17:36 POC ABG HCO3 15.0 (22-26 mml/L) 01/08/19 17:36 POC ABG Total CO2 16 (23-27mmol/L) 01/08/19 17:36 POC ABG O2 Sat 92 01/08/19 17:36 PT/INR, D-dimer PT 13.9 Sec. (12.2-14.9) 01/06/19 06:56 INR 1.10 (0.87-1.13) 01/06/19 06:56 Abnormal lab findings: Abnormal Labs 01/06/19 01/06/19 01/06/19 06:56 06:56 06:56 WBC 11.2 H RBC 3.50 L Hgb 10.5 L Hct 30.8 L MCHC Lymph % (Auto) 2.7 L [place] % (Auto) 8.0 H Lymph # 0.3 L [place] # 0.9 H Seg Neutrophils % 86.7 H Seg Neuts % (Manual) Lymphocytes % (Manual) Seg Neutrophils # 9.7 H Seg Neutrophils # Man Lymphocytes # (Manual) POC ABG pH POC ABG pO2 VBG pH 7.459 H Sodium 130 L Potassium Chloride Carbon Dioxide 18 L BUN Creatinine 0.7 L Glucose 119 H POC Glucose Uric Acid Calcium 8.1 L NT-Pro-B Natriuret Pep Albumin 2.4 L TSH Urine Creatinine Urine Chloride HIV-1 RNA PCR copies/ml HIV-1 RNA (PCR) log 01/06/19 01/06/19 01/07/19 06:59 13:32 08:39 WBC RBC Hgb Hct MCHC Lymph % (Auto) [place] % (Auto) Lymph # [place] # Seg Neutrophils % Seg Neuts % (Manual) Lymphocytes % (Manual) Seg Neutrophils # Seg Neutrophils # Man Lymphocytes # (Manual) POC ABG pH 7.474 H POC ABG pO2 58 L VBG pH Sodium Potassium Chloride Carbon Dioxide BUN Creatinine Glucose POC Glucose 132 H Uric Acid Calcium NT-Pro-B Natriuret Pep Albumin TSH Urine Creatinine Urine Chloride HIV-1 RNA PCR copies/ml 4418314 H HIV-1 RNA (PCR) log 6.24 H 01/07/19 01/07/19 01/08/19 11:17 16:12 06:50 WBC 19.2 H RBC Hgb 11.2 L Hct 33.1 L MCHC Lymph % (Auto) [place] % (Auto) Lymph # [place] # Seg Neutrophils % Seg Neuts % (Manual) 98.0 H Lymphocytes % (Manual) 1.0 L Seg Neutrophils # Seg Neutrophils # Man 18.8 H Lymphocytes # (Manual) 0.2 L POC ABG pH POC ABG pO2 VBG pH Sodium Potassium Chloride Carbon Dioxide BUN Creatinine Glucose POC Glucose 219 H 148 H Uric Acid Calcium NT-Pro-B Natriuret Pep Albumin TSH Urine Creatinine Urine Chloride HIV-1 RNA PCR copies/ml HIV-1 RNA (PCR) log 01/08/19 01/08/19 01/08/19 06:50 06:50 17:36 WBC RBC Hgb Hct MCHC Lymph % (Auto) [place] % (Auto) Lymph # [place] # Seg Neutrophils % Seg Neuts % (Manual) Lymphocytes % (Manual) Seg Neutrophils # Seg Neutrophils # Man Lymphocytes # (Manual) POC ABG pH POC ABG pO2 61 L VBG pH Sodium 134 L Potassium Chloride Carbon Dioxide 15 L BUN Creatinine Glucose POC Glucose Uric Acid Calcium 7.8 L NT-Pro-B Natriuret Pep 1357 H Albumin TSH Urine Creatinine Urine Chloride HIV-1 RNA PCR copies/ml HIV-1 RNA (PCR) log 01/08/19 01/09/19 01/09/19 21:34 07:34 12:03 WBC RBC Hgb Hct MCHC Lymph % (Auto) [place] % (Auto) Lymph # [place] # Seg Neutrophils % Seg Neuts % (Manual) Lymphocytes % (Manual) Seg Neutrophils # Seg Neutrophils # Man Lymphocytes # (Manual) POC ABG pH POC ABG pO2 VBG pH Sodium Potassium Chloride Carbon Dioxide BUN Creatinine Glucose POC Glucose 208 H 168 H 176 H Uric Acid Calcium NT-Pro-B Natriuret Pep Albumin TSH Urine Creatinine Urine Chloride HIV-1 RNA PCR copies/ml HIV-1 RNA (PCR) log 01/09/19 01/09/19 01/10/19 16:08 20:58 00:18 WBC 13.8 H RBC Hgb 11.6 L Hct 34.7 L MCHC Lymph % (Auto) [place] % (Auto) Lymph # [place] # Seg Neutrophils % Seg Neuts % (Manual) 96.0 H Lymphocytes % (Manual) 2.0 L Seg Neutrophils # Seg Neutrophils # Man 13.2 H Lymphocytes # (Manual) 0.3 L POC ABG pH POC ABG pO2 VBG pH Sodium Potassium Chloride Carbon Dioxide BUN Creatinine Glucose POC Glucose 232 H 174 H Uric Acid Calcium NT-Pro-B Natriuret Pep Albumin TSH Urine Creatinine Urine Chloride HIV-1 RNA PCR copies/ml HIV-1 RNA (PCR) log 01/10/19 01/10/19 01/10/19 04:44 07:34 10:36 WBC RBC Hgb Hct MCHC Lymph % (Auto) [place] % (Auto) Lymph # [place] # Seg Neutrophils % Seg Neuts % (Manual) Lymphocytes % (Manual) Seg Neutrophils # Seg Neutrophils # Man Lymphocytes # (Manual) POC ABG pH POC ABG pO2 VBG pH Sodium 125 L D Potassium Chloride 91.9 L Carbon Dioxide 16 L BUN 26 H Creatinine Glucose 168 H POC Glucose 143 H Uric Acid Calcium NT-Pro-B Natriuret Pep Albumin TSH 0.118 L Urine Creatinine Urine Chloride HIV-1 RNA PCR copies/ml HIV-1 RNA (PCR) log 01/10/19 01/10/19 01/10/19 11:22 15:15 17:28 WBC RBC Hgb Hct MCHC Lymph % (Auto) [place] % (Auto) Lymph # [place] # Seg Neutrophils % Seg Neuts % (Manual) Lymphocytes % (Manual) Seg Neutrophils # Seg Neutrophils # Man Lymphocytes # (Manual) POC ABG pH POC ABG pO2 VBG pH Sodium 120 L Potassium 5.1 H D Chloride 89.6 L Carbon Dioxide 14 L BUN 22 H Creatinine Glucose 171 H POC Glucose 170 H 168 H Uric Acid Calcium NT-Pro-B Natriuret Pep Albumin TSH Urine Creatinine Urine Chloride HIV-1 RNA PCR copies/ml HIV-1 RNA (PCR) log 01/10/19 01/11/19 01/11/19 21:01 04:27 04:27 WBC 13.6 H RBC Hgb Hct 34.6 L MCHC 35 H Lymph % (Auto) [place] % (Auto) Lymph # [place] # Seg Neutrophils % Seg Neuts % (Manual) Lymphocytes % (Manual) Seg Neutrophils # Seg Neutrophils # Man Lymphocytes # (Manual) POC ABG pH POC ABG pO2 VBG pH Sodium 134 L D Potassium Chloride Carbon Dioxide 20 L BUN 21 H Creatinine Glucose 115 H POC Glucose 165 H Uric Acid Calcium NT-Pro-B Natriuret Pep Albumin TSH Urine Creatinine Urine Chloride HIV-1 RNA PCR copies/ml HIV-1 RNA (PCR) log 01/11/19 01/11/19 01/11/19 08:32 11:33 17:21 WBC RBC Hgb Hct MCHC Lymph % (Auto) [place] % (Auto) Lymph # [place] # Seg Neutrophils % Seg Neuts % (Manual) Lymphocytes % (Manual) Seg Neutrophils # Seg Neutrophils # Man Lymphocytes # (Manual) POC ABG pH POC ABG pO2 VBG pH Sodium Potassium Chloride Carbon Dioxide BUN Creatinine Glucose POC Glucose 106 H 188 H 173 H Uric Acid Calcium NT-Pro-B Natriuret Pep Albumin TSH Urine Creatinine Urine Chloride HIV-1 RNA PCR copies/ml HIV-1 RNA (PCR) log 01/11/19 01/12/19 01/12/19 20:50 04:23 04:23 WBC RBC Hgb 11.7 L Hct 34.6 L MCHC Lymph % (Auto) [place] % (Auto) Lymph # [place] # Seg Neutrophils % Seg Neuts % (Manual) Lymphocytes % (Manual) Seg Neutrophils # Seg Neutrophils # Man Lymphocytes # (Manual) POC ABG pH POC ABG pO2 VBG pH Sodium 130 L Potassium Chloride Carbon Dioxide 17 L BUN 23 H Creatinine Glucose 104 H POC Glucose 124 H Uric Acid Calcium NT-Pro-B Natriuret Pep Albumin TSH Urine Creatinine Urine Chloride HIV-1 RNA PCR copies/ml HIV-1 RNA (PCR) log 01/12/19 01/12/19 01/12/19 13:04 16:45 21:46 WBC RBC Hgb Hct MCHC Lymph % (Auto) [place] % (Auto) Lymph # [place] # Seg Neutrophils % Seg Neuts % (Manual) Lymphocytes % (Manual) Seg Neutrophils # Seg Neutrophils # Man Lymphocytes # (Manual) POC ABG pH POC ABG pO2 VBG pH Sodium Potassium Chloride Carbon Dioxide BUN Creatinine Glucose POC Glucose 160 H 170 H 142 H Uric Acid Calcium NT-Pro-B Natriuret Pep Albumin TSH Urine Creatinine Urine Chloride HIV-1 RNA PCR copies/ml HIV-1 RNA (PCR) log 01/13/19 01/13/19 01/13/19 04:13 04:13 16:02 WBC RBC Hgb Hct MCHC 35 H Lymph % (Auto) [place] % (Auto) Lymph # [place] # Seg Neutrophils % Seg Neuts % (Manual) Lymphocytes % (Manual) Seg Neutrophils # Seg Neutrophils # Man Lymphocytes # (Manual) POC ABG pH POC ABG pO2 VBG pH Sodium 126 L Potassium Chloride 93.1 L Carbon Dioxide 20 L BUN 31 H Creatinine Glucose POC Glucose 143 H Uric Acid Calcium NT-Pro-B Natriuret Pep Albumin TSH Urine Creatinine Urine Chloride HIV-1 RNA PCR copies/ml HIV-1 RNA (PCR) log 01/13/19 01/14/19 01/14/19 20:11 04:24 12:05 WBC RBC Hgb Hct MCHC Lymph % (Auto) [place] % (Auto) Lymph # [place] # Seg Neutrophils % Seg Neuts % (Manual) Lymphocytes % (Manual) Seg Neutrophils # Seg Neutrophils # Man Lymphocytes # (Manual) POC ABG pH POC ABG pO2 VBG pH Sodium 127 L Potassium Chloride 95.4 L Carbon Dioxide 19 L BUN 36 H Creatinine Glucose POC Glucose 176 H 174 H Uric Acid Calcium NT-Pro-B Natriuret Pep Albumin TSH Urine Creatinine Urine Chloride HIV-1 RNA PCR copies/ml HIV-1 RNA (PCR) log 01/14/19 01/14/19 01/15/19 16:47 21:28 05:30 WBC RBC Hgb Hct MCHC Lymph % (Auto) [place] % (Auto) Lymph # [place] # Seg Neutrophils % Seg Neuts % (Manual) Lymphocytes % (Manual) Seg Neutrophils # Seg Neutrophils # Man Lymphocytes # (Manual) POC ABG pH POC ABG pO2 VBG pH Sodium 125 L Potassium 5.2 H Chloride 93.2 L Carbon Dioxide 19 L BUN 42 H Creatinine Glucose POC Glucose 235 H 170 H Uric Acid Calcium NT-Pro-B Natriuret Pep Albumin TSH Urine Creatinine Urine Chloride HIV-1 RNA PCR copies/ml HIV-1 RNA (PCR) log 01/15/19 01/15/19 01/15/19 10:31 11:19 15:44 WBC RBC Hgb Hct MCHC Lymph % (Auto) [place] % (Auto) Lymph # [place] # Seg Neutrophils % Seg Neuts % (Manual) Lymphocytes % (Manual) Seg Neutrophils # Seg Neutrophils # Man Lymphocytes # (Manual) POC ABG pH POC ABG pO2 VBG pH Sodium Potassium Chloride Carbon Dioxide BUN Creatinine Glucose POC Glucose 158 H 230 H Uric Acid 3.2 L Calcium NT-Pro-B Natriuret Pep Albumin TSH Urine Creatinine Urine Chloride HIV-1 RNA PCR copies/ml HIV-1 RNA (PCR) log 01/15/19 01/15/19 01/16/19 19:45 21:08 03:44 WBC RBC Hgb Hct MCHC Lymph % (Auto) [place] % (Auto) Lymph # [place] # Seg Neutrophils % Seg Neuts % (Manual) Lymphocytes % (Manual) Seg Neutrophils # Seg Neutrophils # Man Lymphocytes # (Manual) POC ABG pH POC ABG pO2 VBG pH Sodium 128 L Potassium Chloride 96.4 L Carbon Dioxide 21 L BUN 40 H Creatinine Glucose 111 H POC Glucose 188 H Uric Acid Calcium NT-Pro-B Natriuret Pep Albumin TSH Urine Creatinine 101.7 H Urine Chloride 40.9 L HIV-1 RNA PCR copies/ml HIV-1 RNA (PCR) log 01/16/19 01/16/19 11:20 16:02 WBC RBC Hgb Hct MCHC Lymph % (Auto) [place] % (Auto) Lymph # [place] # Seg Neutrophils % Seg Neuts % (Manual) Lymphocytes % (Manual) Seg Neutrophils # Seg Neutrophils # Man Lymphocytes # (Manual) POC ABG pH POC ABG pO2 VBG pH Sodium Potassium Chloride Carbon Dioxide BUN Creatinine Glucose POC Glucose 155 H 329 H Uric Acid Calcium NT-Pro-B Natriuret Pep Albumin TSH Urine Creatinine Urine Chloride HIV-1 RNA PCR copies/ml HIV-1 RNA (PCR) log Chest x-ray: report reviewed, image reviewed (improving infiltrates)
[2019-01-16] MEDS: LOVENOX SUB-Q SCH (22:31)
[2019-01-17] MEDS: BACTRIM DS PO SCH ×3 (05:21→21:42)
[2019-01-17 06:02] LABS: BUN/Creatinine Ratio 38; Blood Urea Nitrogen 42 mg/dL (9-20); Calcium 9.1 mg/dL (8.4-10.2); Hemolysis Index 53
--- NOTE | 2019-01-17 09:30 | XRay Report ---
CHEST 2 VIEWS INDICATION: Follow-up pneumonia, hypoxemia. COMPARISON: 01/13/2019 FINDINGS: Support devices: None. Heart: Within normal limits. Lungs/pleura: Subtle infiltration at the right lung base has resolved. Patchy infiltrate at the left lung base has decreased by 25-50%. The remainder of the lungs are clear. No pleural fluid. No pneumo thorax. Additional findings: None. IMPRESSION: Improvement in the bibasilar opacities as described. Signer Name: Stiven Hall Jr, MD Signed: 01/17/2019 9:26 AM Workstation Name: [id number]
--- NOTE | 2019-01-17 09:38 | Progress Note ---
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 * Urine sodium is 82 and urine osmolality is 500. Serum uric acid level was also low at 3.2. The ulcer seemed to be consistent with SIADH * Serum cortisol is also normal. TSH however noted to be low. * TTE reviewed - LVEF 50-55%, nml diastolic function as well * Continue to hold diuretics * Pulmonary following * Avoid excessive fluid intake * Strict I/O Subjective Date of service: 01/17/19 Principal diagnosis: hyponatrema Interval history: Patient is comfortable today. Denies any nausea or vomiting or diarrhea Objective - Vital Signs Vital signs: Vital Signs - 12hr 01/16/19 01/17/19 01/17/19 23:27 03:01 08:13 Temperature 98.5 F 98.2 F 98.4 F Pulse Rate 75 71 81 Respiratory 20 18 14 Rate Blood Pressure 142/94 130/83 131/83 O2 Sat by Pulse 100 99 100 Oximetry - General Appearance General appearance: well-developed, well-nourished, appears stated age EENT: PERRL, mucous membranes moist Neck: no JVD, no thyromegaly, no carotid bruit, supple Respiratory: Present: Clear to Ascultation Cardiology: regular, normal heart rate, S1S2, no murmurs Gastrointestinal: normal, normoactive bowel sounds Integumentary: no rash, other (no edema) - Lab 01/14/19 04:24 01/17/19 05:20 Most recent lab results Calcium 9.1 mg/dL (8.4-10.2) 01/17/19 05:20 101.7 mg/dL (0.1-20.0) H 01/15/19 19:45 82 mmol/L 01/15/19 19:45 Medications & Allergies - Medications Allergies/Adverse Reactions: Allergies No Known Allergies Allergy (Verified 09/24/15 12:37) Home Medications: Home Medications Medication Instructions Recorded Confirmed Last Taken Type Acetaminophen [Acetaminophen TAB] 650 mg PO Q4H PRN #30 tablet 09/30/15 01/07/19 Unknown Rx Sulfamethoxazole/Trimethoprim 1 each PO DAILY #30 tablet 09/30/15 01/07/19 Unknown Rx [Bactrim DS TAB] Warfarin [Coumadin] 5 mg PO QHS #30 tablet 10/01/15 01/07/19 Unknown Rx Sulfamethoxazole/Trimethoprim 1 each PO QDAY 30 Days #30 tablet 01/13/19 Unknown Rx [Bactrim DS TAB] Sulfamethoxazole/Trimethoprim 2 each PO Q8H 14 Days #84 tablet 01/13/19 Unknown Rx [Bactrim DS TAB] Active Medications: Generic Name Dose Route Start Last Admin Trade Name Freq PRN Reason Stop Dose Admin Acetaminophen 650 mg 01/06/19 10:07 Tylenol PO Q4H PRN Pain MILD(1-3)/Fever >100.5/BOOTHE Acetaminophen/Hydrocodone Bitart 2 each 01/06/19 10:07 01/12/19 05:34 [place] 5/325 PO 2 each Q6H PRN Administration Pain, Moderate (4-6) Albuterol 2.5 mg 01/12/19 01:23 Proventil IH Q3HRT PRN Shortness Of Breath Enoxaparin Sodium 40 mg 01/06/19 22:00 01/16/19 22:31 Lovenox SUB-Q 40 mg QDAY@2200 [facility] Administration Famotidine 10 mg 01/06/19 22:00 01/16/19 22:32 Pepcid PO 10 mg BID [facility] Administration Fludrocortisone Acetate 0.1 mg 01/14/19 11:00 01/16/19 10:00 Florinef PO 0.1 mg QDAY [facility] Administration Guaifenesin 1,200 mg 01/07/19 10:00 01/16/19 22:32 Mucinex Er PO 1,200 mg BID [facility] Administration Hydralazine HCl 5 mg 01/06/19 10:07 Apresoline IV Q30MIN PRN Hypertension Insulin Human Regular 0 units 01/09/19 22:00 01/16/19 22:36 Humulin R SUB-Q 1 units ACHS [facility] Administration Protocol Methylprednisolone Sodium Succinate 40 mg 01/08/19 13:00 01/16/19 09:59 Solu-Medrol IV 40 mg Q24HR [facility] Administration Ondansetron HCl 4 mg 01/06/19 10:07 01/12/19 05:34 Zofran IV 4 mg Q8H PRN Administration N/V unrelieved by James Noe 8.6 mg 01/06/19 22:00 01/16/19 22:32 Senokot PO 8.6 mg Q12HR [facility] Administration Sodium Bicarbonate 1,300 mg 01/12/19 22:00 01/16/19 22:32 Sodium Bicarbonate PO 1,300 mg BID [facility] Administration Sodium Chloride 1 gm 01/16/19 14:00 01/16/19 22:39 Sodium Chloride PO 1 gm TID [facility] Administration Trimethoprim/Sulfamethoxazole 2 each 01/06/19 14:00 01/17/19 05:21 Bactrim Ds PO 2 each Q8HR [facility] Administration
--- NOTE | 2019-01-17 10:28 | Progress Note ---
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 Etiology most likely pneumonia.HBC and HCV serology nonreactive. RPR nonreactive. 2) Bilateral pneumonia: likely PJP +/- CAP. Patient with HIV not on ART, likely AIDS. CXR showed patchy left greater than right basilar opacity with left basilar air bronchograms. 02 weaned down to 2L. 3) Oral candidiasis: Improved 4) HIV/AIDS: noncompliant with ART therapy. Viral load 1.7 mil. Recommendations: - continue Bactrim DS 2 tab po TID to treat empirically PJP for total 21 days, Then Bactrim DS 1 tab po q day (prescriptions on the chart) - follow-up CD4, HIV genotype - needs education about consistent HIV management -discussed with case management and patient. Information will be provided to follow-up with [facility] to start ART therapy -Clinically stable. ID is signing off. [facility] M: [phone] O:[phone] Subjective Date of service: 01/17/19 Principal diagnosis: hyponatrema Interval history: Patient seen and examined. Primary language Setswana. Conversation via interpretation line. states that he is feeling better today. No fever or SOB. Objective - Exam Narrative Exam: General appearance: Awake. Alert. No acute distress. Eyes: anicteric sclerae, moist conjunctivae; no lid-lag; PERRLA HENT: Atraumatic; oropharynx clear with moist mucous membranes and +mild oral thrush; normal hard and soft palate. Normal external ears. Neck: Trachea midline; supple, no thyromegaly or lymphadenopathy Lungs: fine crackles LLL, 02/2L CV: RRR Abdomen: Soft, diffuse tenderness and pain. Extremities: no edema, cyanosis Skin: Normal temperature, turgor and texture; no rash, ulcers or subcutaneous nodules Psych: Appropriate affect, alert and oriented to person, place and time. Neuro: alert and oriented x 3. Moving all extremities - Constitutional Vitals: Vital Signs Temp Pulse Resp BP Pulse Ox 98.4 F 81 14 131/83 100 01/17/19 08:13 01/17/19 08:13 01/17/19 08:13 01/17/19 08:13 01/17/19 08:13 Temperature -Last 24 Hours Temperature 98.4 F Temperature 98.2 F Temperature 98.5 F Temperature 98.3 F Temperature 97.9 F Temperature 98.4 F - Labs CBC & Chem 7: 01/14/19 04:24 01/17/19 05:20 Labs: Abnormal lab results 01/16/19 01/16/19 01/16/19 Range/Units 11:20 16:02 20:47 Sodium (137-145) mmol/L Carbon Dioxide (22-30) mmol/L BUN (9-20) mg/dL POC Glucose 155 H 329 H 163 H (70-105) 01/17/19 Range/Units 05:20 Sodium 133 L (137-145) mmol/L Carbon Dioxide 20 L (22-30) mmol/L BUN 42 H (9-20) mg/dL POC Glucose (70-105)
[2019-01-17] MEDS: HumuLIN R SUB-Q SCH ×4 (11:00→21:47)
[2019-01-17] MEDS: SOLU-Medrol IV SCH (11:01)
[2019-01-17] MEDS: SENOKOT PO SCH ×2 (11:01→21:42)
[2019-01-17] MEDS: SODIUM BICARBONATE PO SCH ×2 (11:01→21:42)
[2019-01-17] MEDS: PEPCID PO SCH ×2 (11:02→21:42)
[2019-01-17] MEDS: SODIUM CHLORIDE PO SCH ×3 (11:02→21:43)
[2019-01-17] MEDS: MUCINEX ER PO SCH ×2 (11:02→21:42)
[2019-01-17] MEDS: FLORINEF PO SCH (11:02)
--- NOTE | 2019-01-17 13:03 | Discharge Summary ---
Providers - Providers Date of Admission: 01/06/19 07:59 Date of discharge: 01/17/19 Attending physician: ZURI NEELY 01/06/19 10:01 Consult to Physician [CONS] Routine Comment: Consulting Provider: ASH OROZCO Physician Instructions: Reason For Exam: b/l PNA with HIV 01/08/19 12:48 Consult to Physician [CONS] Routine Comment: Consulting Provider: ERIN MONDRAGON Physician Instructions: Reason For Exam: acute respiratory failure 01/10/19 07:46 Consult to Physician [CONS] Routine Comment: Consulting Provider: SWAPNA SWEET Physician Instructions: Reason For Exam: Hyponatremia Primary care physician: MARY CARMEN SWEET Hospitalization Condition: Stable Pertinent studies: CXR Hospital course: 53 y/o male with history of HIV since 2016 not taking ART (for unclear reasons), 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 He was diagnosed with acute respiratory failure, bilateral pneumonia with sepsis. patient was admitted, evaluated by Pulmonology and ID Physician. He was treated for probable PCP with Bactrim. He was on Oxygen by high flow , now on 3l/min with Oxygen sat 98%. Also had hyponatremia, seen by Nephrology and given multiple doses of Samsca.. His Na level improved and was discharged home on home Oxygen in stable condition. Discharge diagnosis: Acute hypoxic respiratory failure due to pneumonia, required home O2 on d/c B/L PNA with sepsis, treated with abx - To dc home on Bactrim DS 2pills Q 8h total 21 days then 1 pill po daily afterwards - prescription ordered by ID, on chart. h/o HIV dx on Jun 2015, not on ARV since then -HIV RNA copies/ml 1,720,000 Hyponatremia, Improved after Tolvaptan 15mg po x 2 doses given on 01/10 and 01/13, Na 133 today Hyperkalemia, , Resolved after kayexalate 30g po x 1 dose Noncompliance, counseled Oral candidiasis, started on fluconazole DVT prophylaxis, [facility] Hospitalist Physical Gen: Not in acute distress, lying in bed, On Oxygen by NC HEENT: Normocephalic, atraumatic Neck: supple, no JVD Heart: S1 and S2 reg, no murmurs, rubs or gallop Lungs: Crackles left base, no wheeze Abd: soft, non tender, non distended, normal BS Ext: No edema, no clubbing, no cyanosis, Neuro: Awake,alert, moves all extremities, non focal Psych:Normal mood Disposition: DC-01 TO HOME OR SELFCARE Time spent for discharge: 34 minutes Core Measure Documentation - Palliative Care Palliative Care/ Comfort Measures: Not Applicable - Core Measures Any of the following diagnoses?: history only Exam - Constitutional Vitals: Temp Pulse Resp BP Pulse Ox 98.4 F 81 14 131/83 97 01/17/19 08:13 01/17/19 08:13 01/17/19 08:13 01/17/19 08:13 01/17/19 10:00 Plan Activity: advance as tolerated Weight Bearing Status: Weight Bear as Tolerated Diet: regular Special Instructions: home oxygen via (n/c) Follow up with: MARY CARMEN SWEET MD [Primary Care Provider] - 7 Days ROSEANNA GUEVARA MD [Staff Physician] - 7 Days Prescriptions: Sulfamethoxazole/Trimethoprim [Bactrim DS TAB] 2 each PO Q8H 14 Days #84 tablet Sulfamethoxazole/Trimethoprim [Bactrim DS TAB] 1 each PO QDAY 30 Days #30 tablet
--- NOTE | 2019-01-17 13:12 | Progress Note ---
Assessment and Plan Imp: 1. PJP Pneumonia 2. HIV/AIDS 3. Acute respiratory failure, hypoxia 4. Hyponatremia/Hyperkalemia Rec: 1. He has clinically and radiographically improved on current therapy; no need for bronch 2. Finish 21 days of Bactrim, and should take Prednisone 20mg daily for the remaining PJP course as well 3. Home O2 has been arranged 4. K and Na per renal 5. Needs close outpatient f/u, they expressed understanding; he can see us in a few weeks for repeat CXR and 6MWT on RA to see if he still requires O2; can go home [id number] Plan of care reviewed w/ patient/son, they understand/agree Subjective Date of service: 01/17/19 Principal diagnosis: hyponatrema Interval history: Continues to improve with decreased SOB. Cough is better, not resolved yet. On 2L NC. No new complaints. Active Medications Acetaminophen (Tylenol) 650 mg PO Q4H PRN PRN Reason: Pain MILD(1-3)/Fever >100.5/BOOTHE Acetaminophen/Hydrocodone Bitart ([place] 5/325) 2 each PO Q6H PRN PRN Reason: Pain, Moderate (4-6) Last Admin: 01/12/19 05:34 Dose: 2 each Documented by: Albuterol (Proventil) 2.5 mg IH Q3HRT PRN PRN Reason: Shortness Of Breath Enoxaparin Sodium (Lovenox) 40 mg SUB-Q QDAY@2200 [facility] Last Admin: 01/16/19 22:31 Dose: 40 mg Documented by: Famotidine (Pepcid) 10 mg PO BID [facility] Last Admin: 01/17/19 11:02 Dose: 10 mg Documented by: Fludrocortisone Acetate (Florinef) 0.1 mg PO QDAY [facility] Last Admin: 01/17/19 11:02 Dose: 0.1 mg Documented by: Guaifenesin (Mucinex Er) 1,200 mg PO BID [facility] Last Admin: 01/17/19 11:02 Dose: 1,200 mg Documented by: Hydralazine HCl (Apresoline) 5 mg IV Q30MIN PRN PRN Reason: Hypertension Insulin Human Regular (Humulin R) 0 units SUB-Q [facility]; Protocol Last Admin: 01/17/19 12:37 Dose: Not Given Documented by: Methylprednisolone Sodium Succinate (Solu-Medrol) 40 mg IV Q24HR [facility] Last Admin: 01/17/19 11:01 Dose: 40 mg Documented by: Ondansetron HCl (Zofran) 4 mg IV Q8H PRN PRN Reason: N/V unrelieved by James Last Admin: 01/12/19 05:34 Dose: 4 mg Documented by: Senna (Senokot) 8.6 mg PO Q12HR [facility] Last Admin: 01/17/19 11:01 Dose: 8.6 mg Documented by: Sodium Bicarbonate (Sodium Bicarbonate) 1,300 mg PO BID [facility] Last Admin: 01/17/19 11:01 Dose: 1,300 mg Documented by: Sodium Chloride (Sodium Chloride) 1 gm PO TID [facility] Last Admin: 01/17/19 11:02 Dose: 1 gm Documented by: Trimethoprim/Sulfamethoxazole (Bactrim Ds) 2 each PO Q8HR [facility] Last Admin: 01/17/19 05:21 Dose: 2 each Documented by: Objective Vital Signs - 12hr 01/17/19 01/17/19 01/17/19 03:01 08:13 10:00 Temperature 98.2 F 98.4 F Pulse Rate 71 81 Respiratory 18 14 Rate Blood Pressure 130/83 131/83 O2 Sat by Pulse 99 100 97 Oximetry Constitutional: no acute distress, alert Eyes: non-icteric ENT: oropharynx moist Neck: supple Effort: normal Ascultation: Bilateral: rales (few in bases) Percussion: Bilateral: not dull Cardiovascular: regular rate and rhythm (no mrg) Gastrointestinal: normoactive bowel sounds, soft, non-tender Integumentary: normal Extremities: no cyanosis, no edema, pink and warm Neurologic: normal mental status, non-focal exam, pupils equal and round, CN II- XII normal Psychiatric: mood appropriate, affect normal CBC and BMP: 01/14/19 04:24 01/17/19 05:20 ABG, PT/INR, D-dimer: ABG POC ABG pH 7.415 (7.35-7.45) 01/08/19 17:36 POC ABG pO2 61 (80-105) L 01/08/19 17:36 POC ABG HCO3 15.0 (22-26 mml/L) 01/08/19 17:36 POC ABG Total CO2 16 (23-27mmol/L) 01/08/19 17:36 POC ABG O2 Sat 92 01/08/19 17:36 PT/INR, D-dimer PT 13.9 Sec. (12.2-14.9) 01/06/19 06:56 INR 1.10 (0.87-1.13) 01/06/19 06:56 Abnormal lab findings: Abnormal Labs 01/06/19 01/06/19 01/06/19 06:56 06:56 06:56 WBC 11.2 H RBC 3.50 L Hgb 10.5 L Hct 30.8 L MCHC Lymph % (Auto) 2.7 L [place] % (Auto) 8.0 H Lymph # 0.3 L [place] # 0.9 H Seg Neutrophils % 86.7 H Seg Neuts % (Manual) Lymphocytes % (Manual) Seg Neutrophils # 9.7 H Seg Neutrophils # Man Lymphocytes # (Manual) POC ABG pH POC ABG pO2 VBG pH 7.459 H Sodium 130 L Potassium Chloride Carbon Dioxide 18 L BUN Creatinine 0.7 L Glucose 119 H POC Glucose Uric Acid Calcium 8.1 L NT-Pro-B Natriuret Pep Albumin 2.4 L TSH Urine Creatinine Urine Chloride HIV-1 RNA PCR copies/ml HIV-1 RNA (PCR) log 01/06/19 01/06/19 01/07/19 06:59 13:32 08:39 WBC RBC Hgb Hct MCHC Lymph % (Auto) [place] % (Auto) Lymph # [place] # Seg Neutrophils % Seg Neuts % (Manual) Lymphocytes % (Manual) Seg Neutrophils # Seg Neutrophils # Man Lymphocytes # (Manual) POC ABG pH 7.474 H POC ABG pO2 58 L VBG pH Sodium Potassium Chloride Carbon Dioxide BUN Creatinine Glucose POC Glucose 132 H Uric Acid Calcium NT-Pro-B Natriuret Pep Albumin TSH Urine Creatinine Urine Chloride HIV-1 RNA PCR copies/ml 1324774 H HIV-1 RNA (PCR) log 6.24 H 01/07/19 01/07/19 01/08/19 11:17 16:12 06:50 WBC 19.2 H RBC Hgb 11.2 L Hct 33.1 L MCHC Lymph % (Auto) [place] % (Auto) Lymph # [place] # Seg Neutrophils % Seg Neuts % (Manual) 98.0 H Lymphocytes % (Manual) 1.0 L Seg Neutrophils # Seg Neutrophils # Man 18.8 H Lymphocytes # (Manual) 0.2 L POC ABG pH POC ABG pO2 VBG pH Sodium Potassium Chloride Carbon Dioxide BUN Creatinine Glucose POC Glucose 219 H 148 H Uric Acid Calcium NT-Pro-B Natriuret Pep Albumin TSH Urine Creatinine Urine Chloride HIV-1 RNA PCR copies/ml HIV-1 RNA (PCR) log 01/08/19 01/08/19 01/08/19 06:50 06:50 17:36 WBC RBC Hgb Hct MCHC Lymph % (Auto) [place] % (Auto) Lymph # [place] # Seg Neutrophils % Seg Neuts % (Manual) Lymphocytes % (Manual) Seg Neutrophils # Seg Neutrophils # Man Lymphocytes # (Manual) POC ABG pH POC ABG pO2 61 L VBG pH Sodium 134 L Potassium Chloride Carbon Dioxide 15 L BUN Creatinine Glucose POC Glucose Uric Acid Calcium 7.8 L NT-Pro-B Natriuret Pep 1357 H Albumin TSH Urine Creatinine Urine Chloride HIV-1 RNA PCR copies/ml HIV-1 RNA (PCR) log 01/08/19 01/09/19 01/09/19 21:34 07:34 12:03 WBC RBC Hgb Hct MCHC Lymph % (Auto) [place] % (Auto) Lymph # [place] # Seg Neutrophils % Seg Neuts % (Manual) Lymphocytes % (Manual) Seg Neutrophils # Seg Neutrophils # Man Lymphocytes # (Manual) POC ABG pH POC ABG pO2 VBG pH Sodium Potassium Chloride Carbon Dioxide BUN Creatinine Glucose POC Glucose 208 H 168 H 176 H Uric Acid Calcium NT-Pro-B Natriuret Pep Albumin TSH Urine Creatinine Urine Chloride HIV-1 RNA PCR copies/ml HIV-1 RNA (PCR) log 01/09/19 01/09/19 01/10/19 16:08 20:58 00:18 WBC 13.8 H RBC Hgb 11.6 L Hct 34.7 L MCHC Lymph % (Auto) [place] % (Auto) Lymph # [place] # Seg Neutrophils % Seg Neuts % (Manual) 96.0 H Lymphocytes % (Manual) 2.0 L Seg Neutrophils # Seg Neutrophils # Man 13.2 H Lymphocytes # (Manual) 0.3 L POC ABG pH POC ABG pO2 VBG pH Sodium Potassium Chloride Carbon Dioxide BUN Creatinine Glucose POC Glucose 232 H 174 H Uric Acid Calcium NT-Pro-B Natriuret Pep Albumin TSH Urine Creatinine Urine Chloride HIV-1 RNA PCR copies/ml HIV-1 RNA (PCR) log 01/10/19 01/10/19 01/10/19 04:44 07:34 10:36 WBC RBC Hgb Hct MCHC Lymph % (Auto) [place] % (Auto) Lymph # [place] # Seg Neutrophils % Seg Neuts % (Manual) Lymphocytes % (Manual) Seg Neutrophils # Seg Neutrophils # Man Lymphocytes # (Manual) POC ABG pH POC ABG pO2 VBG pH Sodium 125 L D Potassium Chloride 91.9 L Carbon Dioxide 16 L BUN 26 H Creatinine Glucose 168 H POC Glucose 143 H Uric Acid Calcium NT-Pro-B Natriuret Pep Albumin TSH 0.118 L Urine Creatinine Urine Chloride HIV-1 RNA PCR copies/ml HIV-1 RNA (PCR) log 01/10/19 01/10/19 01/10/19 11:22 15:15 17:28 WBC RBC Hgb Hct MCHC Lymph % (Auto) [place] % (Auto) Lymph # [place] # Seg Neutrophils % Seg Neuts % (Manual) Lymphocytes % (Manual) Seg Neutrophils # Seg Neutrophils # Man Lymphocytes # (Manual) POC ABG pH POC ABG pO2 VBG pH Sodium 120 L Potassium 5.1 H D Chloride 89.6 L Carbon Dioxide 14 L BUN 22 H Creatinine Glucose 171 H POC Glucose 170 H 168 H Uric Acid Calcium NT-Pro-B Natriuret Pep Albumin TSH Urine Creatinine Urine Chloride HIV-1 RNA PCR copies/ml HIV-1 RNA (PCR) log 01/10/19 01/11/19 01/11/19 21:01 04:27 04:27 WBC 13.6 H RBC Hgb Hct 34.6 L MCHC 35 H Lymph % (Auto) [place] % (Auto) Lymph # [place] # Seg Neutrophils % Seg Neuts % (Manual) Lymphocytes % (Manual) Seg Neutrophils # Seg Neutrophils # Man Lymphocytes # (Manual) POC ABG pH POC ABG pO2 VBG pH Sodium 134 L D Potassium Chloride Carbon Dioxide 20 L BUN 21 H Creatinine Glucose 115 H POC Glucose 165 H Uric Acid Calcium NT-Pro-B Natriuret Pep Albumin TSH Urine Creatinine Urine Chloride HIV-1 RNA PCR copies/ml HIV-1 RNA (PCR) log 01/11/19 01/11/19 01/11/19 08:32 11:33 17:21 WBC RBC Hgb Hct MCHC Lymph % (Auto) [place] % (Auto) Lymph # [place] # Seg Neutrophils % Seg Neuts % (Manual) Lymphocytes % (Manual) Seg Neutrophils # Seg Neutrophils # Man Lymphocytes # (Manual) POC ABG pH POC ABG pO2 VBG pH Sodium Potassium Chloride Carbon Dioxide BUN Creatinine Glucose POC Glucose 106 H 188 H 173 H Uric Acid Calcium NT-Pro-B Natriuret Pep Albumin TSH Urine Creatinine Urine Chloride HIV-1 RNA PCR copies/ml HIV-1 RNA (PCR) log 01/11/19 01/12/19 01/12/19 20:50 04:23 04:23 WBC RBC Hgb 11.7 L Hct 34.6 L MCHC Lymph % (Auto) [place] % (Auto) Lymph # [place] # Seg Neutrophils % Seg Neuts % (Manual) Lymphocytes % (Manual) Seg Neutrophils # Seg Neutrophils # Man Lymphocytes # (Manual) POC ABG pH POC ABG pO2 VBG pH Sodium 130 L Potassium Chloride Carbon Dioxide 17 L BUN 23 H Creatinine Glucose 104 H POC Glucose 124 H Uric Acid Calcium NT-Pro-B Natriuret Pep Albumin TSH Urine Creatinine Urine Chloride HIV-1 RNA PCR copies/ml HIV-1 RNA (PCR) log 01/12/19 01/12/19 01/12/19 13:04 16:45 21:46 WBC RBC Hgb Hct MCHC Lymph % (Auto) [place] % (Auto) Lymph # [place] # Seg Neutrophils % Seg Neuts % (Manual) Lymphocytes % (Manual) Seg Neutrophils # Seg Neutrophils # Man Lymphocytes # (Manual) POC ABG pH POC ABG pO2 VBG pH Sodium Potassium Chloride Carbon Dioxide BUN Creatinine Glucose POC Glucose 160 H 170 H 142 H Uric Acid Calcium NT-Pro-B Natriuret Pep Albumin TSH Urine Creatinine Urine Chloride HIV-1 RNA PCR copies/ml HIV-1 RNA (PCR) log 01/13/19 01/13/19 01/13/19 04:13 04:13 16:02 WBC RBC Hgb Hct MCHC 35 H Lymph % (Auto) [place] % (Auto) Lymph # [place] # Seg Neutrophils % Seg Neuts % (Manual) Lymphocytes % (Manual) Seg Neutrophils # Seg Neutrophils # Man Lymphocytes # (Manual) POC ABG pH POC ABG pO2 VBG pH Sodium 126 L Potassium Chloride 93.1 L Carbon Dioxide 20 L BUN 31 H Creatinine Glucose POC Glucose 143 H Uric Acid Calcium NT-Pro-B Natriuret Pep Albumin TSH Urine Creatinine Urine Chloride HIV-1 RNA PCR copies/ml HIV-1 RNA (PCR) log 01/13/19 01/14/19 01/14/19 20:11 04:24 12:05 WBC RBC Hgb Hct MCHC Lymph % (Auto) [place] % (Auto) Lymph # [place] # Seg Neutrophils % Seg Neuts % (Manual) Lymphocytes % (Manual) Seg Neutrophils # Seg Neutrophils # Man Lymphocytes # (Manual) POC ABG pH POC ABG pO2 VBG pH Sodium 127 L Potassium Chloride 95.4 L Carbon Dioxide 19 L BUN 36 H Creatinine Glucose POC Glucose 176 H 174 H Uric Acid Calcium NT-Pro-B Natriuret Pep Albumin TSH Urine Creatinine Urine Chloride HIV-1 RNA PCR copies/ml HIV-1 RNA (PCR) log 01/14/19 01/14/19 01/15/19 16:47 21:28 05:30 WBC RBC Hgb Hct MCHC Lymph % (Auto) [place] % (Auto) Lymph # [place] # Seg Neutrophils % Seg Neuts % (Manual) Lymphocytes % (Manual) Seg Neutrophils # Seg Neutrophils # Man Lymphocytes # (Manual) POC ABG pH POC ABG pO2 VBG pH Sodium 125 L Potassium 5.2 H Chloride 93.2 L Carbon Dioxide 19 L BUN 42 H Creatinine Glucose POC Glucose 235 H 170 H Uric Acid Calcium NT-Pro-B Natriuret Pep Albumin TSH Urine Creatinine Urine Chloride HIV-1 RNA PCR copies/ml HIV-1 RNA (PCR) log 01/15/19 01/15/19 01/15/19 10:31 11:19 15:44 WBC RBC Hgb Hct MCHC Lymph % (Auto) [place] % (Auto) Lymph # [place] # Seg Neutrophils % Seg Neuts % (Manual) Lymphocytes % (Manual) Seg Neutrophils # Seg Neutrophils # Man Lymphocytes # (Manual) POC ABG pH POC ABG pO2 VBG pH Sodium Potassium Chloride Carbon Dioxide BUN Creatinine Glucose POC Glucose 158 H 230 H Uric Acid 3.2 L Calcium NT-Pro-B Natriuret Pep Albumin TSH Urine Creatinine Urine Chloride HIV-1 RNA PCR copies/ml HIV-1 RNA (PCR) log 01/15/19 01/15/19 01/16/19 19:45 21:08 03:44 WBC RBC Hgb Hct MCHC Lymph % (Auto) [place] % (Auto) Lymph # [place] # Seg Neutrophils % Seg Neuts % (Manual) Lymphocytes % (Manual) Seg Neutrophils # Seg Neutrophils # Man Lymphocytes # (Manual) POC ABG pH POC ABG pO2 VBG pH Sodium 128 L Potassium Chloride 96.4 L Carbon Dioxide 21 L BUN 40 H Creatinine Glucose 111 H POC Glucose 188 H Uric Acid Calcium NT-Pro-B Natriuret Pep Albumin TSH Urine Creatinine 101.7 H Urine Chloride 40.9 L HIV-1 RNA PCR copies/ml HIV-1 RNA (PCR) log 01/16/19 01/16/19 01/16/19 11:20 16:02 20:47 WBC RBC Hgb Hct MCHC Lymph % (Auto) [place] % (Auto) Lymph # [place] # Seg Neutrophils % Seg Neuts % (Manual) Lymphocytes % (Manual) Seg Neutrophils # Seg Neutrophils # Man Lymphocytes # (Manual) POC ABG pH POC ABG pO2 VBG pH Sodium Potassium Chloride Carbon Dioxide BUN Creatinine Glucose POC Glucose 155 H 329 H 163 H Uric Acid Calcium NT-Pro-B Natriuret Pep Albumin TSH Urine Creatinine Urine Chloride HIV-1 RNA PCR copies/ml HIV-1 RNA (PCR) log 01/17/19 01/17/19 05:20 12:06 WBC RBC Hgb Hct MCHC Lymph % (Auto) [place] % (Auto) Lymph # [place] # Seg Neutrophils % Seg Neuts % (Manual) Lymphocytes % (Manual) Seg Neutrophils # Seg Neutrophils # Man Lymphocytes # (Manual) POC ABG pH POC ABG pO2 VBG pH Sodium 133 L Potassium Chloride Carbon Dioxide 20 L BUN 42 H Creatinine Glucose POC Glucose 113 H Uric Acid Calcium NT-Pro-B Natriuret Pep Albumin TSH Urine Creatinine Urine Chloride HIV-1 RNA PCR copies/ml HIV-1 RNA (PCR) log Chest x-ray: report reviewed, image reviewed (continued improvement on 01/17)
[2019-01-17 16:01] LABS: CD19, Absolute SEE SCANNED RESULT; CD3, Absolute SEE SCANNED RESULT; CD3, Percentage SEE SCANNED RESULT; CD4, Absolute SEE SCANNED RESULT; CD4, Percentage SEE SCANNED RESULT; CD4/CD8 Ratio SEE SCANNED RESULT; CD8, Absolute SEE SCANNED RESULT; CD8, Percentage SEE SCANNED RESULT; Lymphocytes, Absolute SEE SCANNED RESULT
[2019-01-17 20:27] VITALS: BP 137/93
[2019-01-17] MEDS: LOVENOX SUB-Q SCH (21:47)
== END 2019-01-17 22:00 | disposition home or self-care (01) | DRG 974 ==
LOC: ED 05:45 → 4A 07:59
PROVIDERS: ADMIT Internal Medicine; ATTEND Internal Medicine
PROC: 4A033R1 Measurement of Arterial Saturation, Peripheral, Percutaneous Approach (ICD-10-PCS; principal; 2019-01-06)
DX: B20 Human immunodeficiency virus [HIV] disease (principal); A41.9 Sepsis, unspecified organism; J96.01 Acute respiratory failure with hypoxia; J18.9 Pneumonia, unspecified organism; K72.00 Acute and subacute hepatic failure without coma; E87.1 Hypo-osmolality and hyponatremia; B37.0 Candidal stomatitis; E87.5 Hyperkalemia; Z91.14 Patient's other noncompliance with medication regimen; Z82.49 Family history of ischemic heart disease and other diseases of the circulatory system; Z79.899 Other long term (current) drug therapy; Z86.718 Personal history of other venous thrombosis and embolism
CPT/HCPCS: 36415; 36600; 71045; 71046; 80048; 80074; 80076; 81001; 82024; 82140; 82436; 82533; 82570; 82803; 82805; 82962; 83880; 83930; 83935; 84132; 84133; 84300; 84439; 84443; 84484; 84550; 85007; 85025; 85027; 85610; 85730; 86403; 86592; 87040; 87205; 87536; 87901; 93005; 93010; 93306; 94640; 94760; 96365; 96375; G0378; J0456; J0696; J1630; J1650; J1815; J1940; J1956; J2405; J2920; J2930; J7030; J7050; J7060

== ENCOUNTER 2019-01-23 22:06 | Inpatient (IN) | payer OTHER ==
--- NOTE | 2019-01-23 22:23 | Emergency Department Report ---
Blank Doc - Documentation Documentation: This is a 53-year-old male that presents with abdominal pain with n/v. This initial assessment/diagnostic orders/clinical plan/treatment(s) is/are subject to change based on patient's health status, clinical progression and re- assessment by fellow clinical providers in the ED. Further treatment and workup at subsequent clinical providers discretion. Patient/guardians urged not to elope from the ED as their condition may be serious if not clinically assessed and managed. Initial orders include: 1- Patient sent to [facility] for further evaluation and treatment 2- labs 3- UA
[2019-01-23 22:45] LABS: Basophils % (Auto) 0.8 % (0.0-1.8); Eosinophils # (Auto) 0.2 K/mm3 (0.0-0.4); Eosinophils % (Auto) 2.7 % (0.0-4.3); Hematocrit 38.1 % (35.5-45.6); Lymphocytes # (Auto) 0.6 K/mm3 (1.2-5.4); Lymphocytes % (Auto) 10.5 % (13.4-35.0); Mean Corpuscular HGB Conc 34 % (32-34); Mean Corpuscular Volume 88 fl (84-94); Monocytes # (Auto) 0.8 K/mm3 (0.0-0.8); Monocytes % (Auto) 12.8 % (0.0-7.3); Platelet Count 188 K/mm3 (140-440); Red Blood Count 4.34 M/mm3 (3.65-5.03); Red Cell Distribution Width 13.9 % (13.2-15.2)
[2019-01-23 23:25] LABS: Albumin 3.2 g/dL (3.9-5); Calcium 9.2 mg/dL (8.4-10.2)
[2019-01-24 00:45] LABS: Bacteria,Urine 4+ /HPF (Negative); Bilirubin,Urine NEG (Negative); Blood,Urine NEG (Negative); Color,Urine Amber (Yellow); Mucus,Urine 3+ /HPF; Urobilinogen,Urine < 2.0 mg/dL (<2.0)
[2019-01-24 00:58] LABS: RBC,Urine < 1.0 /HPF (0.0-6.0)
[2019-01-24] MEDS ORDERED: NACL 0.9% 1000 ML 1,000 ML IV ONE (01:33)
[2019-01-24] MEDS ORDERED: ROCEPHIN/NS 1 GM/50 ML 1 GM/50 ML BAG IV ONE (01:40)
--- NOTE | 2019-01-24 01:48 | Emergency Department Report ---
<COCO JAIN - Last Filed: 01/24/19 02:30> ED Abdominal Pain HPI - General Chief Complaint: Abdominal Pain Stated Complaint: EMESIS Time Seen by Provider: 01/23/19 22:22 Source: patient, family Mode of arrival: Wheelchair Limitations: No Limitations - History of Present Illness Initial Comments: pt is a 53 y/o male with hx of HIV, BERONICA, Pneumonia who presents n/v/d x 1 week, with increased cough and SOB, pt was admited 2 weeks ago for same to include resp failure, pt advises abd pain is 8/10 exacerabated by po intake and movement, pt presents with family member son who interprets for patient, symptoms have progessed over the last week MD Complaint: abdominal pain Onset/Timin -: week(s) Location: diffuse Severity: moderate Severity scale (0 -10): 7 Quality: sharp Consistency: constant Improves With: nothing Worsens With: eating Associated Symptoms: nausea, vomiting - Related Data Previous Rx's Medication Instructions Recorded Last Taken Type Acetaminophen [Acetaminophen TAB] 650 mg PO Q4H PRN #30 tablet 09/30/15 Unknown Rx Sulfamethoxazole/Trimethoprim 1 each PO DAILY #30 tablet 09/30/15 Unknown Rx [Bactrim DS TAB] Warfarin [Coumadin] 5 mg PO QHS #30 tablet 10/01/15 Unknown Rx Sulfamethoxazole/Trimethoprim 1 each PO QDAY 30 Days #30 tablet 01/13/19 Unknown Rx [Bactrim DS TAB] Sulfamethoxazole/Trimethoprim 2 each PO Q8H 14 Days #84 tablet 01/13/19 Unknown Rx [Bactrim DS TAB] Allergies Allergy/AdvReac Type Severity Reaction Status Date / Time No Known Allergies Allergy Verified 09/24/15 12:37 ED Review of Systems Constitutional: denies: chills, fever Eyes: denies: eye pain, eye discharge, vision change ENT: congestion Respiratory: cough, shortness of breath Cardiovascular: denies: chest pain, palpitations Endocrine: no symptoms reported Gastrointestinal: abdominal pain, nausea, vomiting. denies: melena Genitourinary: urgency, dysuria, frequency. denies: hematuria Musculoskeletal: denies: back pain, joint swelling, arthralgia Skin: denies: rash, lesions Neurological: denies: headache, weakness, paresthesias Psychiatric: denies: anxiety, depression Hematological/Lymphatic: denies: easy bleeding, easy bruising ED Past Medical Hx - Past Medical History Previous Medical History?: Yes Hx Hypertension: Yes Hx Congestive Heart Failure: No Hx Diabetes: No Hx Renal Disease: Yes Hx Asthma: No Hx COPD: No Hx HIV: Yes - Social History Smoking Status: Never Smoker Substance Use Type: None - Medications Home Medications: Home Medications Medication Instructions Recorded Confirmed Last Taken Type Acetaminophen [Acetaminophen TAB] 650 mg PO Q4H PRN #30 tablet 09/30/15 01/07/19 Unknown Rx Sulfamethoxazole/Trimethoprim 1 each PO DAILY #30 tablet 09/30/15 01/07/19 Unknown Rx [Bactrim DS TAB] Warfarin [Coumadin] 5 mg PO QHS #30 tablet 10/01/15 01/07/19 Unknown Rx Sulfamethoxazole/Trimethoprim 1 each PO QDAY 30 Days #30 tablet 01/13/19 Unknown Rx [Bactrim DS TAB] Sulfamethoxazole/Trimethoprim 2 each PO Q8H 14 Days #84 tablet 01/13/19 Unknown Rx [Bactrim DS TAB] ED Physical Exam - General Limitations: No Limitations General appearance: alert, anxious - Head Head exam: Present: atraumatic, normocephalic - Eye Eye exam: Present: normal appearance, PERRL, EOMI Pupils: Present: normal accommodation - ENT ENT exam: Present: mucous membranes moist - Neck Neck exam: Present: normal inspection, full ROM. Absent: tenderness - Respiratory Respiratory exam: Present: chest wall tenderness (right lateral ), decreased breath sounds. Absent: wheezes, rales, rhonchi, stridor - Expanded Respiratory Exam Expanded Location: Decreased Breath Sounds: Lower, Left, Right - Cardiovascular Cardiovascular Exam: Present: regular rate, normal rhythm, normal heart sounds. Absent: systolic murmur, diastolic murmur, rubs, gallop - GI/Abdominal GI/Abdominal exam: Present: soft, tenderness (superpubic ), normal bowel sounds. Absent: distended, guarding, rebound, rigid, bruit, hernia - Rectal Rectal exam: Present: deferred - Extremities Exam Extremities exam: Present: normal inspection, full ROM, normal capillary refill. Absent: tenderness, pedal edema, joint swelling - Back Exam Back exam: Present: normal inspection, full ROM. Absent: tenderness, CVA tenderness (R), CVA tenderness (L), muscle spasm, paraspinal tenderness, vertebral tenderness, rash noted - Neurological Exam Neurological exam: Present: alert, oriented X3, CN II-XII intact, normal gait - Psychiatric Psychiatric exam: Present: normal affect, normal mood - Skin Skin exam: Present: warm, dry, intact, normal color. Absent: rash ED Medical Decision Making - Lab Data Result diagrams: 01/23/19 22:29 01/23/19 22:29 Labs 01/23/19 01/23/19 01/23/19 22:29 22:29 Unknown WBC 6.1 RBC 4.34 Hgb 13.0 Hct 38.1 MCV 88 MCH 30 MCHC 34 RDW 13.9 Plt Count 188 Lymph % (Auto) 10.5 L [place] % (Auto) 12.8 H Eos % (Auto) 2.7 Baso % (Auto) 0.8 Lymph # 0.6 L [place] # 0.8 Eos # 0.2 Baso # 0.0 Seg Neutrophils % 73.2 H Seg Neutrophils # 4.4 Sodium 127 L Potassium 5.2 H Chloride 93.9 L Carbon Dioxide 17 L Anion Gap 21 BUN 46 H Creatinine 1.6 H Estimated GFR 45 BUN/Creatinine Ratio 29 Glucose 117 H Calcium 9.2 Total Bilirubin 0.20 AST 28 ALT 41 Alkaline Phosphatase 93 Total Protein 8.5 H Albumin 3.2 L Albumin/Globulin Ratio 0.6 Lipase 118 H Urine Color [place] Urine Turbidity Turbid Urine pH 5.0 Ur Specific [place] 1.029 Urine Protein 30 mg/dl Urine Glucose (UA) Neg Urine Ketones Neg Urine Blood Neg Urine Nitrite Neg Urine Bilirubin Neg Urine Urobilinogen < 2.0 Ur Leukocyte Esterase Neg Urine WBC (Auto) 114.0 H Urine RBC (Auto) < 1.0 Urine Bacteria (Auto) 4+ Urine Mucus 3+ - Medical Decision Making consulted ed attending recommendation cxr admit to hospitalist for dx intractable N/V , Dehydration, UTI. Consulted Hospitalist: recommendation admit dx. Intractable N/V, UTI, BERONICA, CXR pending , pt and family members verbalized agreement and understanding of tx plan. ED Disposition Clinical Impression: HIV (human immunodeficiency virus infection), Bilateral pneumonia, Abdominal pain Nausea & vomiting Qualifiers: Vomiting type: unspecified Vomiting Intractability: intractable Qualified Code(s): R11.2 - Nausea with vomiting, unspecified Disposition: -09 OP ADMIT IP TO THIS HOSP Is pt being admited?: Yes Does the pt Need Aspirin: No Condition: Stable Instructions: Bacterial Pneumonia (ED) Time of Disposition: 02:30 <JAZMINE ESTRADA - Last Filed: 01/24/19 04:25> ED Review of Systems ROS: Stated complaint: EMESIS Other details as noted in HPI ED Course Vital Signs 01/23/19 01/24/19 01/24/19 22:23 01:45 02:00 Temperature 97.6 F 97.9 F Pulse Rate 92 H 95 H Respiratory 20 24 24 Rate Blood Pressure 141/91 Blood Pressure 141/94 [Left] O2 Sat by Pulse 98 99 99 Oximetry ED Medical Decision Making - Lab Data Result diagrams: 01/23/19 22:29 01/23/19 22:29 - Medical Decision Making I was consulted by my colleague is irrelevant. Supervised and put on patient. Mr. León presents to the ED with abdominal pain nausea vomiting. On initial evaluation he appeared to have increased work of breathing. No evidence of peritonitis or obstruction on my exam. Patient actually appears comfortable after treatment provided by my colleague. CT chest revealed worsening pulmonary process which includes bacterial pneumonia versus opportunistic infection due to age. I added azithromycin to his antibiotic treatment. Anticipate further treatment. [facility] abdomen and pelvis no acute process Critical care attestation.: If time is entered above; I have spent that time in minutes in the direct care of this critically ill patient, excluding procedure time. ED Disposition Is pt being admited?: Yes Does the pt Need Aspirin: No
[2019-01-24] MEDS ORDERED: ZOFRAN IV ONE (02:02)
--- NOTE | 2019-01-24 02:23 | XRay Report ---
CHEST 1 VIEW INDICATION / CLINICAL INFORMATION: dyspnea. COMPARISON: 01/17/2019 FINDINGS: SUPPORT DEVICES: None. HEART / MEDIASTINUM: No significant abnormality. LUNGS / PLEURA: No significant pulmonary or pleural abnormality. No pneumothorax. ADDITIONAL FINDINGS: No significant additional findings. IMPRESSION: 1. No acute findings. Signer Name: Arnoldo Norwood MD Signed: 01/24/2019 2:19 AM Workstation Name: [id number]
--- NOTE | 2019-01-24 04:17 | Cat Scan Report ---
CT abdomen pelvis wo con, CT chest wo con INDICATION / CLINICAL INFORMATION: abdominal pain vomiting. TECHNIQUE: All CT scans at this location are performed using CT dose reduction for ALARA by means of automated e xposure control. COMPARISON: CT scan abdomen/pelvis 08/22/2015 FINDINGS: Chest: The ascending aorta is slightly ectatic measuring 3.6 cm. No other mediastinal findings of significance. Interstitial opacity is identified bilaterally, more predominantly at the lung bases. Mild dependent atelectasis is seen in the left lower lobe. ABDOMEN: A 3.3 cm right renal cyst is unchanged. Kidneys are otherwise normal. No small bowel dilatation. Pelvis: No acute inflammatory findings or free fluid collections. IMPRESSION: 1. Diffuse interstitial disease appears more prominent than on the visualized portions of the lung on the comparison 2015 CT scan. 2. No significant abdominal or pelvic abnormality. Signer Name: Arnoldo Norwood MD Signed: 01/24/2019 4:13 AM Workstation Name: [id number]
[2019-01-24] MEDS ORDERED: ZITHROMAX 500 MG in NACL 0.9% 250ML 250 ML IV ONE (04:26)
[2019-01-24] MEDS ORDERED: SODIUM CHLORIDE FLUSH SYRINGE 10 ML IV PRN (04:46)
[2019-01-24] MEDS ORDERED: ZOFRAN IV PRN (04:46)
[2019-01-24] MEDS ORDERED: TYLENOL PO PRN (04:46)
--- NOTE | 2019-01-24 05:21 | History and Physical Report ---
History of Present Illness Date of examination: 01/24/19 History of present illness: 53-year-old man with a history of HIV, hypertension just discharge from the hospital return to the ER with complaints of nausea and vomiting 3 days. Also complained of abdominal pain in the mid abdomen 2 days, described as sharp, in termittent neurofibromas, intensity 5/10, no radiation, cannot identify exacerbating or relieving factors. Admits to dysuria, no fever or chills, frequency Review of systems Constitutional: no weight loss, chills, fever Ears, eyes, nose, mouth and throat: no nasal congestion, no nasal discharge, no sinus pressure, no vision change, no red eye. Neck: No neck pain or rigidity. Cardiovascular: no palpitations, chest pain Respiratory: no cough, shortness of breath Gastrointestinal: no hematochezia, abdominal pain Genitourinary : no frequency , no hematuria Musculoskeletal: no joint swelling or muscle ache Integumentary: no rash, no pruritis Neurological: no parathesias, no focal weakness Endocrine: no cold or heat intolerance, no polyuria or polydipsia Hematologic/Lymphatic: no easy bruising, no easy bleeding, no gland swelling Allergic/Immunologic: no urticaria, no angioedema. PAST MEDICAL HISTORY: HIV, hypertension PAST SURGICAL HISTORY: none SOCIAL HISTORY: Denies alcohol, drugs, tobacco FAMILY HISTORY: Hypertension Medications and Allergies Allergies Allergy/AdvReac Type Severity Reaction Status Date / Time No Known Allergies Allergy Verified 09/24/15 12:37 Home Medications Medication Instructions Recorded Confirmed Last Taken Type Acetaminophen [Acetaminophen TAB] 650 mg PO Q4H PRN #30 tablet 09/30/15 01/07/19 Unknown Rx Sulfamethoxazole/Trimethoprim 1 each PO DAILY #30 tablet 09/30/15 01/07/19 Unknown Rx [Bactrim DS TAB] Warfarin [Coumadin] 5 mg PO QHS #30 tablet 10/01/15 01/07/19 Unknown Rx Sulfamethoxazole/Trimethoprim 1 each PO QDAY 30 Days #30 tablet 01/13/19 Unknown Rx [Bactrim DS TAB] Sulfamethoxazole/Trimethoprim 2 each PO Q8H 14 Days #84 tablet 01/13/19 Unknown Rx [Bactrim DS TAB] Active Meds: Active Medications Acetaminophen (Tylenol) 650 mg PO Q4H PRN PRN Reason: Pain MILD(1-3)/Fever >100.5/BOOTHE Enoxaparin Sodium (Lovenox) 40 mg SUB-Q QDAY [facility] Azithromycin 500 mg/ Sodium (Chloride) 250 mls @ 250 mls/hr IV ONCE ONE; Protocol Stop: 01/24/19 05:25 Last Admin: 01/24/19 04:47 Dose: 250 mls/hr Documented by: Sodium Chloride (Nacl 0.9% 1000 Ml) 1,000 mls @ 125 mls/hr IV DIRECT DIOGENES Ondansetron HCl (Zofran) 4 mg IV Q8H PRN PRN Reason: Nausea And Vomiting Sodium Chloride (Sodium Chloride Flush Syringe 10 Ml) 10 ml IV BID DIOGENES Sodium Chloride (Sodium Chloride Flush Syringe 10 Ml) 10 ml IV PRN PRN PRN Reason: LINE FLUSH Exam - Physical Exam Narrative exam: General Apperance: The patient lying in bed, breathing comfortable HEENT: Normocephalic, atraumatic. Pupils equally round and reactive to light, EOMI, no sclericterus or JVD or thyromegaly or nodule. , no carotid bruit, mucous membranes moist, no exudate or erythema Heart: S1-S2, regular is rhythm Lungs: Crackles at bases bilaterally, breathing comfortable Abdomen: Positive bowel sounds, soft, nontender, nondistended, no organomegaly Extremities: No edema cyanosis clubbing Skin: no rash, nodule, warm and dry Neuro: cranial nerves 2-12 intact, speech is fluent, motor/sensory intact - Constitutional Vitals: Temp Pulse Resp BP Pulse Ox 97.9 F 77 21 120/82 98 01/24/19 01:45 01/24/19 04:30 01/24/19 04:30 01/24/19 04:30 01/24/19 04:30 Results - Labs CBC & Chem 7: 01/23/19 22:29 01/23/19 22:29 Labs: Abnormal lab results 01/23/19 01/23/19 01/23/19 Range/Units 22:29 22:29 Unknown Lymph % (Auto) 10.5 L (13.4-35.0) % Bea[place]gard % (Auto) 12.8 H (0.0-7.3) % Lymph # 0.6 L (1.2-5.4) K/mm3 Seg Neutrophils % 73.2 H (40.0-70.0) % Sodium 127 L (137-145) mmol/L Potassium 5.2 H (3.6-5.0) mmol/L Chloride 93.9 L (98-107) mmol/L Carbon Dioxide 17 L (22-30) mmol/L BUN 46 H (9-20) mg/dL Creatinine 1.6 H (0.8-1.5) mg/dL Glucose 117 H (75-100) mg/dL Total Protein 8.5 H (6.3-8.2) g/dL Albumin 3.2 L (3.9-5) g/dL Lipase 118 H (13-60) units/L Urine WBC (Auto) 114.0 H (0.0-6.0) /HPF - Imaging and Cardiology EKG: image reviewed CT scan - abdomen: report reviewed CT scan - chest: report reviewed CT scan - pelvis: report reviewed Assessment and Plan Assessment Bilateral pneumonia Urinary tract infection Acute renal insufficiency Hyponatremia Hypertension HIV Plan Admit to medicine Start IV fluids, IV Rocephin, azithromycin, follow cultures Monitor kidney function, DVT prophylaxis
[2019-01-24] MEDS ORDERED: TYLENOL ONE (05:31)
[2019-01-24] MEDS: NACL 0.9% 1000 ML 1,000 ML IV SCH ×2 (08:17→15:37)
[2019-01-24 09:23] LABS: Calcium 8.6 mg/dL (8.4-10.2)
[2019-01-24] MEDS: ROCEPHIN/NS 1 GM/50 ML 1 GM/50 ML BAG IV SCH (10:20)
[2019-01-24] MEDS: LOVENOX SUB-Q SCH (10:20)
[2019-01-24] MEDS: SODIUM CHLORIDE FLUSH SYRINGE 10 ML IV SCH ×2 (10:24→22:19)
[2019-01-24] MEDS ORDERED: KIONEX PO ONE (11:00)
--- NOTE | 2019-01-24 13:46 | Event Note ---
Date: 01/24/19 Patient was seen and evaluated this morning, patient still complains nausea. Patient was admitted earlier this morning and management as outlined per H&P.
[2019-01-24] MEDS ORDERED: PERCOCET 5/325 PO PRN (15:26)
[2019-01-25] MEDS: NACL 0.9% 1000 ML 1,000 ML IV SCH (03:43)
[2019-01-25 05:31] LABS: Basophils % (Auto) 0.5 % (0.0-1.8); Eosinophils # (Auto) 0.3 K/mm3 (0.0-0.4); Eosinophils % (Auto) 8.2 % (0.0-4.3); Hematocrit 28.5 % (35.5-45.6); Hemoglobin 9.5 gm/dl (11.8-15.2); Lymphocytes # (Auto) 0.2 K/mm3 (1.2-5.4); Lymphocytes % (Auto) 5.6 % (13.4-35.0); Mean Corpuscular HGB Conc 33 % (32-34); Mean Corpuscular Volume 89 fl (84-94); Monocytes # (Auto) 0.4 K/mm3 (0.0-0.8); Monocytes % (Auto) 9.6 % (0.0-7.3); Platelet Count 142 K/mm3 (140-440); Red Blood Count 3.23 M/mm3 (3.65-5.03); Red Cell Distribution Width 13.9 % (13.2-15.2)
[2019-01-25 05:48] LABS: BUN/Creatinine Ratio 27; Blood Urea Nitrogen 27 mg/dL (9-20); Calcium 7.6 mg/dL (8.4-10.2); Hemolysis Index 5
[2019-01-25 06:20] VITALS: BP 119/65
--- NOTE | 2019-01-25 09:09 | Discharge Summary ---
Providers - Providers Date of Admission: 01/24/19 04:46 Date of discharge: 01/25/19 Attending physician: VINCENT VARGAS MD Primary care physician: ARACELI LI Hospitalization Reason for admission: Bilateral pneumonia, UTI, acute renal failure Condition: Stable Pertinent studies: chest x-ray CT abdomen and pelvis Hospital course: 53-year-old man with a history of HIV, hypertension just discharged from the hospital return to the ER with complaints of nausea and vomiting 3 days. Also complained of abdominal pain in the mid abdomen 2 days, described as sharp, intermittent neurofibromas, intensity 5/10, no radiation, cannot identify exacerbating or relieving factors. Admits to dysuria, no fever or chills, frequency. patient admitted to the floor for the management of bilateral pneumonia, UTI, abdominal pain, ARF secondary to vasomotor nephropathy. patient was admitted to floor and was treated with IV antibiotics, IV fluids, symptomatic treatment for abdominal pain nausea and vomiting. Patient's symptoms resolved. Acute renal failure resolved. patient has an appointment with ID to start his treatment for HIV, he is already on prophylaxis treatment. Patient was given po antibiotics and discharged home. Patient was hemodynamically stable at the time of discharge. I used Armenian seismic interpreter #[id number] and explained in detail the disease condition and the management plan. Disposition: DC-01 TO HOME OR SELFCARE Time spent for discharge: 32 minutes - Discharge Diagnoses (1) Abdominal pain Status: Acute (2) Bilateral pneumonia Status: Acute (3) Dehydration Status: Acute (4) HIV (human immunodeficiency virus infection) Status: Acute (5) Nausea & vomiting Status: Acute Qualifiers: Vomiting type: unspecified Vomiting Intractability: intractable Qualified Code(s): R11.2 - Nausea with vomiting, unspecified Core Measure Documentation - Palliative Care Palliative Care/ Comfort Measures: Not Applicable - Core Measures Any of the following diagnoses?: none Exam - Physical Exam Narrative exam: Not in cardiopulmonary distress. The patient appeared well nourished and normally developed. Vital signs as documented. Head exam is unremarkable. No scleral icterus . Neck is without jugular venous distension, thyromegaly, or carotid bruits. Lungs are clear to auscultation. Cardiac exam reveals regular rate and Rhythm. Abdominal exam reveals normal bowel sounds, no masses, no organomegaly and no aortic enlargement. Extremities are nonedematous and both femoral and pedal pulses are normal. DRUM PULLER: Alert and oriented 3. No focal weakness. - Constitutional Vitals: Temp Pulse Resp BP Pulse Ox 98.5 F 91 H 18 119/65 95 01/25/19 06:17 01/25/19 06:17 01/25/19 06:17 01/25/19 06:01/25/19 06:17 Plan Activity: no restrictions Diet: regular Follow up with: ARACELI LI MD [Primary Care Provider] - 3-5 Days Prescriptions: cephALEXin [Keflex] 500 mg PO Q8HR #15 cap oxyCODONE /ACETAMINOPHEN [Percocet 5/325 mg] 1 tab PO Q6H PRN #12 tablet PRN Reason: Pain, Moderate (4-6) Azithromycin [Zithromax Z-JOANNE] 250 mg PO DAILY #3 tablet Ondansetron [Zofran ODT TAB] 4 mg PO Q8HR #12 tab.grady
[2019-01-25] MEDS: ROCEPHIN/NS 1 GM/50 ML 1 GM/50 ML BAG IV SCH (09:29)
[2019-01-25] MEDS: LOVENOX SUB-Q SCH (09:33)
[2019-01-25] MEDS ORDERED: ZITHROMAX PO SCH (10:00)
== END 2019-01-25 14:36 | disposition home or self-care (01) | DRG 682 ==
LOC: ED 22:06 → 3A 01-24 04:46
PROVIDERS: ADMIT Internal Medicine; ATTEND Internal Medicine
DX: N17.0 Acute kidney failure with tubular necrosis (principal); J18.9 Pneumonia, unspecified organism; N39.0 Urinary tract infection, site not specified; E87.1 Hypo-osmolality and hyponatremia; I10 Essential (primary) hypertension; R11.2 Nausea with vomiting, unspecified; E86.0 Dehydration; Z79.01 Long term (current) use of anticoagulants; Z21 Asymptomatic human immunodeficiency virus [HIV] infection status
CPT/HCPCS: 36415; 71045; 71250; 74176; 80048; 80053; 81001; 83690; 85025; 85610; 87086; G0378; J0456; J0696; J1650; J2405; J7030; J7050